=== PATIENT | female | born 1975 | race Hispanic/Latino ===

== ENCOUNTER 2016-10-19 16:21 | Emergency (ER) | payer OTHER ==
[2016-10-19 18:11] LABS: Basophils % (Auto) 0.7 % (0.0-1.8); Eosinophils % (Auto) 1.2 % (0.0-4.3); Hemoglobin 13.4 gm/dl (10.1-14.3); Mean Corpuscular HGB Conc 33 % (30-34); Mean Corpuscular Hemoglobin 27 pg (28-32); Mean Corpuscular Volume 84 fl (79-97); Platelet Count 235 K/mm3 (140-440); Red Blood Count 4.89 M/mm3 (3.65-5.03); Red Cell Distribution Width 14.2 % (13.2-15.2); White Blood Count 9.1 K/mm3 (4.5-11.0)
--- NOTE | 2016-10-19 18:11 | Emergency Department Report ---
ED Psych HPI - General Chief Complaint: Psych Stated Complaint: SUICIDAL THOUGHTS Time Seen by Provider: 10/19/16 17:21 Source: patient, family, EMS Mode of arrival: Ambulatory - History of Present Illness MD Complaint: suicidal ideation, feels depressed -: Gradual Associated Psychiatric Symptoms: depression History of same: Yes Quality: intermittent Improves With: none Worsens With: none Context: significant life stressor Associated Symptoms: denies: confusion, headache, shortness of breath, nausea, vomiting, syncope, insomnia If Self Harm: admits thoughts of, gunshot - Related Data Previous Rx's Medication Instructions Recorded Last Taken Type Albuterol Sulfate [Proventil HFA] 1 - 2 puff IH Q4H PRN #1 hfa.aer.ad 03/13/14 Unknown Rx Loratadine [Claritin] 10 mg PO DAILY #20 tablet 03/13/14 Unknown Rx ALBUTEROL NEB's [Proventil 0.083% 2.5 mg IH TID PRN #1 box 10/17/14 Unknown Rx NEBS] predniSONE [Deltasone] 40 mg PO BID #10 tablet 10/17/14 Unknown Rx traMADol [Ultram] 50 mg PO Q6HR PRN #20 tablet 10/17/14 Unknown Rx Allergies Allergy/AdvReac Type Severity Reaction Status Date / Time amoxicillin trihydrate Allergy Rash Verified 10/17/14 11:08 [From Augmentin] codeine Allergy Rash Verified 10/17/14 11:08 erythromycin base Allergy Rash Verified 10/17/14 11:08 potassium clavulanate Allergy Rash Verified 10/17/14 11:08 [From Augmentin] Sulfa (Sulfonamide Allergy Rash Verified 10/17/14 11:08 Antibiotics) ED Review of Systems ROS: Stated complaint: SUICIDAL THOUGHTS Other details as noted in HPI Comment: All other systems reviewed and negative ED Past Medical Hx - Past Medical History Previous Medical History?: Yes Hx CVA: No Hx Heart Attack/AMI: No Hx Congestive Heart Failure: No Hx Diabetes: No Hx Deep Vein Thrombosis: No Hx Pulmonary Embolism: No Hx GERD: No Hx Liver Disease: No Hx Renal Disease: No Hx of Cancer: No Hx Sickle Cell Disease: No Hx Arthritis: No Hx Headaches / Migraines: No Hx Seizures: No Hx Kidney Stones: No Hx Psychiatric Treatment: No Hx Asthma: Yes Hx COPD: No Hx Tuberculosis: No Hx Dementia: No Hx HIV: No - Surgical History Past Surgical History?: Yes Hx Coronary Stent: No Hx Open Heart Surgery: No Hx Pacemaker: Yes (heart murmmur) Hx Internal Defibrillator: No Hx Cholecystectomy: No Hx Appendectomy: Yes Hx Breast Surgery: No - Social History Smoking Status: Current Every Day Smoker Substance Use Type: Alcohol - Medications Home Medications: Home Medications Medication Instructions Recorded Confirmed Last Taken Type Albuterol Sulfate [Proventil HFA] 1 - 2 puff IH Q4H PRN #1 hfa.aer.ad 03/13/14 Unknown Rx Loratadine [Claritin] 10 mg PO DAILY #20 tablet 03/13/14 Unknown Rx ALBUTEROL NEB's [Proventil 0.083% 2.5 mg IH TID PRN #1 box 10/17/14 Unknown Rx NEBS] predniSONE [Deltasone] 40 mg PO BID #10 tablet 10/17/14 Unknown Rx traMADol [Ultram] 50 mg PO Q6HR PRN #20 tablet 10/17/14 Unknown Rx ED Physical Exam - General Limitations: No Limitations General appearance: alert, in no apparent distress - Head Head exam: Present: atraumatic, normocephalic - Eye Eye exam: Present: normal appearance - ENT ENT exam: Present: normal exam, mucous membranes moist - Neck Neck exam: Present: normal inspection - Respiratory Respiratory exam: Present: normal lung sounds bilaterally. Absent: respiratory distress - Cardiovascular Cardiovascular Exam: Present: regular rate, normal rhythm. Absent: systolic murmur, diastolic murmur, rubs, gallop - GI/Abdominal GI/Abdominal exam: Present: soft, normal bowel sounds. Absent: distended, tenderness, guarding - Extremities Exam Extremities exam: Present: normal inspection - Back Exam Back exam: Present: normal inspection - Neurological Exam Neurological exam: Present: alert, oriented X3 - Psychiatric Psychiatric exam: Present: depressed - Skin Skin exam: Present: warm, dry, intact, normal color. Absent: rash ED Course Vital Signs 10/19/16 10/19/16 16:26 20:28 Temperature 98.4 F 98.2 F Pulse Rate 104 H 99 H Respiratory 24 22 Rate Blood Pressure 173/129 Blood Pressure 143/82 [Left] O2 Sat by Pulse 98 96 Oximetry ED Medical Decision Making - Lab Data Result diagrams: 10/19/16 17:58 10/19/16 17:58 - Medical Decision Making patient brought by EMS after a discussion with her sister and she told her she was planning to kill herself with a gun, no prior suicidal ideations , consulted psych and agree with plan for transfering to psych facility, 1013 form in the chart Critical care attestation.: If time is entered above; I have spent that time in minutes in the direct care of this critically ill patient, excluding procedure time. ED Disposition Clinical Impression: Suicidal ideation Disposition: DC/TX PSY HOSP/PSY UNIT Is pt being admited?: No Does the pt Need Aspirin: No Condition: Good Referrals: PRIMARY CARE, [Primary Care Provider] - 3-5 Days Time of Disposition: 10:05
[2016-10-19] MEDS ORDERED: ATIVAN PO ONE (18:13)
[2016-10-19 18:30] LABS: Alanine Aminotransferase 19 units/L (7-56); Albumin 3.7 g/dL (3.9-5); Albumin/Globulin Ratio 1.6 %; Alkaline Phosphatase 64 units/L (35-129); Anion Gap 16 mmol/L; Blood Urea Nitrogen 10 mg/dL (7-17); Calcium 8.6 mg/dL (8.4-10.2); Carbon Dioxide 23 mmol/L (22-30); Chloride 102.7 mmol/L (98-107); Glucose 98 mg/dL (65-100); Potassium 4.1 mmol/L (3.6-5.0); Sodium 138 mmol/L (137-145)
[2016-10-19 18:50] LABS: Urine Drugs of Abuse Note Disclamer
[2016-10-19] MEDS ORDERED: PROVENTIL IH ONE (19:55)
[2016-10-20] MEDS ORDERED: MILK OF MAGNESIA PO PRN (13:31)
[2016-10-20] MEDS ORDERED: ALUM-MAG HYDROX-SIMETH 200-200-20MG/5ML PO PRN (13:31)
[2016-10-20] MEDS ORDERED: DUONEB 0.5 MG-3 MG/3 ML SOLN IH ONE ×2 (13:34→20:26)
[2016-10-20] MEDS: TYLENOL PO PRN (14:27)
--- NOTE | 2016-10-20 19:17 | Consultation ---
<SAIGE NEGRETE E - Last Filed: 10/20/16 23:21> History of Present Illness - Reason for Consult Consult date: 10/20/16 Reason for consult: psychiatric evaluation - Chief Complaint Chief complaint: "My took my little girl" 41 yearold white female seen in the ER for psychiatric evaluation. Her sister called EMS after she did not answer the phone despite repeated calls. The events prior to this were involving the patient and her . Her took their 12 year old and left. She reports they had an ongoing argument for the past 3 days. She has not had contact with him since he left. Her sister reported to EMS and the hospital that the patient told her she was going to shoot herself and the patient is on drugs. The patient denies both of these accusations. She denies psychotic symptoms. Her drug screen is positive for amphetamine and marijuana. She reports marijuana use every 6 months. She is restless and perseverative about going home. Staff report she was distraught when she arrived and could not stop crying. Medications and Allergies Allergies Allergy/AdvReac Type Severity Reaction Status Date / Time amoxicillin trihydrate Allergy Rash Verified 10/17/14 11:08 [From Augmentin] codeine Allergy Rash Verified 10/17/14 11:08 erythromycin base Allergy Rash Verified 10/17/14 11:08 potassium clavulanate Allergy Rash Verified 10/17/14 11:08 [From Augmentin] Sulfa (Sulfonamide Allergy Rash Verified 10/17/14 11:08 Antibiotics) Home Medications Medication Instructions Recorded Confirmed Last Taken Type Albuterol Sulfate [Proventil HFA] 1 - 2 puff IH Q4H PRN #1 hfa.aer.ad 03/13/14 10/20/16 Unknown Rx Loratadine [Claritin] 10 mg PO DAILY #20 tablet 03/13/14 10/20/16 Unknown Rx ALBUTEROL NEB's [Proventil 0.083% 2.5 mg IH TID PRN #1 box 10/17/14 10/20/16 Unknown Rx NEBS] predniSONE [Deltasone] 40 mg PO BID #10 tablet 10/17/14 10/20/16 Unknown Rx traMADol [Ultram] 50 mg PO Q6HR PRN #20 tablet 10/17/14 10/20/16 Unknown Rx Active Meds: Active Medications Acetaminophen (Tylenol) 650 mg PO Q4HR PRN PRN Reason: Pain MILD(1-3)/Fever >100.5/VILLALOBOS Last Admin: 10/20/16 14:27 Dose: 650 mg Al Hydrox/Mg Hydrox/Simethicone (Alum-Mag Hydrox-Simeth [id number]/5ml) 30 ml PO Q4HR PRN PRN Reason: Indigestion Magnesium Hydroxide (Milk Of Magnesia) 30 ml PO Q12HR PRN PRN Reason: Constipation Past psychiatric history - Past Medical History Past Medical History: other (asthma) - Social History Social history: lives with family Mental Status Exam - Vital signs Last Vital Signs Temp 98.2 F 10/19/16 20:28 Pulse 94 H 10/20/16 14:17 Resp 18 10/20/16 14:17 BP 143/82 10/19/16 20:28 Pulse Ox 96 10/20/16 13:00 - Exam Orientation: time, place, person Affect: anxious Mood: congruent with affect Thought content: other (no SI, no HI) Thought Process: Goal Oriented (perseverative about going home) Perceptions: none Speech: normal rate and pattern Concentration: focused Motor activity: restless Level of consciousness: alert Memory: Intact Sleep Symptoms: None Interaction: cooperative Results Result Diagrams: 10/19/16 17:58 10/19/16 17:58 All other labs normal. Assessment and Plan Assessment and plan: Impression: acute stress reaction Patient is not suicidal or homicidal. Substance abuse is likely but methamphetamine use is not confirmed. Recommendation: Obtain collateral from sister and . No indications for 1013 at the time of exam <JANE CABRERA - Last Filed: 10/22/16 21:09> Medications and Allergies Active Meds: Active Medications Acetaminophen (Tylenol) 650 mg PO Q4HR PRN PRN Reason: Pain MILD(1-3)/Fever >100.5/VILLALOBOS Last Admin: 10/20/16 14:27 Dose: 650 mg Al Hydrox/Mg Hydrox/Simethicone (Alum-Mag Hydrox-Simeth [phone]/5ml) 30 ml PO Q4HR PRN PRN Reason: Indigestion Albuterol (Proventil) 2.5 mg IH QID PRN PRN Reason: Shortness Of Breath Stop: 10/26/16 05:10 Last Admin: 10/21/16 05:37 Dose: 2.5 mg Magnesium Hydroxide (Milk Of Magnesia) 30 ml PO Q12HR PRN PRN Reason: Constipation Mental Status Exam - Vital signs Last Vital Signs Temp 98.1 F 10/22/16 08:31 Pulse 90 10/22/16 08:31 Resp 16 10/22/16 08:33 BP 122/82 10/22/16 08:31 Pulse Ox 94 10/22/16 08:33 Results Result Diagrams: 10/19/16 17:58 10/19/16 17:58 All other labs normal. Assessment and Plan Assessment and plan: Addendum for 10/22/16 -Patient was seen by me today and yesterday. Today patient continues to deny any SI/HI/AH/VH. Per staff she's been calm and cooperative. She's been taking her meds and describes no side effects. Patient isn't in any acute risk of harm to self or others. 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 -rescind 1013 and follow up with outpatient treatment
[2016-10-21] MEDS: PROVENTIL IH PRN (05:37)
[2016-10-21] MEDS ORDERED: ATIVAN ONE (17:36)
[2016-10-21] MEDS ORDERED: ATIVAN IM ONE (17:44)
[2016-10-22] MEDS: PROVENTIL IH PRN (00:05)
[2016-10-22] MEDS: TYLENOL PO PRN (20:58)
--- NOTE | 2016-10-23 08:15 | Physician Progress Note ---
REASON FOR FOLLOWUP: Reevaluate her mental status and also her response to therapy. SUBJECTIVE DATA: Includes \\"I'm doing fine, just ready to go home.\\" OBJECTIVE DATA: Includes the patient noted lying in bed, resting quietly. No visible distress noted. She was alert and oriented to person, place, time and situation. Affect appears to be euthymic. Mood was pleasant. Eye contact was good. Insight and judgment appears to be appropriate. Concentration and memory was good. She denies any suicidal and homicidal ideations. She reports that she made a mistake by threatening to harm herself. Denies any auditory or visual hallucinations. She reports eating well, sleeping well. She is not responding to internal stimuli. No psychosis noted. She has been calm and cooperative with staff here and reports that she is just ready to go home. At the current time, her assessment includes major depressive disorder and the plan is to possibly ____ based on Dr. Boss's decision probably if not today, probably tomorrow on 10/23/2016 with family. She has been calm and cooperative been compliant with staff, no behavior issues, no suicidal gestures or verbalization of suicidal thoughts or homicidal ideations as well. The plan is to continue with the current regimen as prescribed, provide outpatient resources upon discharge and continue to follow during hospitalization. JOB# [id number] CAROLINA/TAMIR
[2016-10-23 08:28] VITALS: BP 118/84
--- NOTE | 2016-10-23 08:35 | Progress Note ---
Subjective - Reason for Consult Consult date: 10/23/16 Reason for consult: Psychiatry Follow-up - Chief Complaint Chief complaint: "I was stupid" 41 year old white female seen in the ER for psychiatric evaluation. Today patient is calm and cooperative during assessment. She acknowledged that her decison making was erratic when she got into an argument with her . She stated, "I was stupid for that." She stated saying she was going to kill herself was her being "upset." She denies recreational drug use, but she was positive for amphetamines and marijuana. She stated, "I did those drugs once." Spoke with her sister and , they stated that the patient can have "mood swings" at times. She denies sleep disturbance, poor appetite, SI/HI's, or depression. 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 She stated that she usually work full-time. Mental Status Exam - Vital signs Last Vital Signs Temp 98 F 10/23/16 08:24 Pulse 85 10/23/16 08:24 Resp 18 10/23/16 08:24 BP 118/84 10/23/16 08:24 Pulse Ox 94 10/23/16 08:24 - Exam Narrative exam: MSE: Appearance: cooperative Behavior: good eye contact Speech: regular rate and tone Mood: "okay" Affect: congruent Thought Process: linear Thought Content: denies SI/HI's and AVH's Motor Activity: ambulatory Cognition: a/ox 3 Insight: linear Judgment: linear Assessment and Plan Impression: 41 year old white female seen in the ER for psychiatric evaluation. Today patient is calm and cooperative during assessment. She acknowledged that her decison making was erratic when she got into an argument with her . She stated, "I was stupid for that." She stated saying she was going to kill herself was her being "upset." Spoke with her Oskar Ledesma [phone] and sister Keli Borrego [phone]. They both stated that patient is safe to return home with her . She is no threat to self or anyone else. She denies SI/HI's and AVH's. Recommendation/Plan: Patient will follow-up with [facility] for outpatient psy services. Start Lexapro 5 mg PO daily for mood. Discussed possible suicidality and medication induced thad with patient reference antidepressants. Safety contract completed with patient.
[2016-10-23] MEDS: PROVENTIL IH PRN (09:52)
[2016-10-23] MEDS ORDERED: LEXAPRO PO SCH (10:00)
--- NOTE | 2016-10-23 10:13 | Event Note ---
Date: 10/23/16 The patient is interviewed, she is calm, pleasant, lucid and cooperative. She is alert and oriented 3. She has no medical complaints at this time. She has a GCS of 15, with an NIH score of 0. She is not homicidal or suicidal, she is not having hallucinations, and she does not have access to guns or firearms. Psychiatry notes are reviewed and appreciated. They have rescinded the patient' s 1013. She will be discharged at this time. She is instructed to follow-up with a local primary care doctor or mental health specialist to initiate Lexapro therapy. Return precautions are reviewed. Vital Signs 10/19/16 10/19/16 10/20/16 16:26 20:28 13:00 Temperature 98.4 F 98.2 F Pulse Rate 104 H 99 H Pulse Rate [ Bilateral] Respiratory 24 22 22 Rate Respiratory Rate [Bilateral ] Blood Pressure 173/129 Blood Pressure 143/82 [Left] O2 Sat by Pulse 98 96 96 Oximetry 10/20/16 10/20/16 10/20/16 14:05 14:17 20:39 Temperature 98.4 F Pulse Rate 94 H Pulse Rate [ 93 H 94 H Bilateral] Respiratory 16 Rate Respiratory 18 18 Rate [Bilateral ] Blood Pressure Blood Pressure 147/92 [Left] O2 Sat by Pulse 96 Oximetry 10/20/16 10/20/16 10/21/16 20:42 20:51 09:10 Temperature 97.9 F Pulse Rate 86 Pulse Rate [ 89 91 H Bilateral] Respiratory 18 Rate Respiratory 16 17 Rate [Bilateral ] Blood Pressure Blood Pressure 150/57 [Left] O2 Sat by Pulse 94 Oximetry 10/21/16 10/22/16 10/22/16 21:10 08:31 08:33 Temperature 98.4 F 98.1 F Pulse Rate 90 90 Pulse Rate [ Bilateral] Respiratory 18 16 16 Rate Respiratory Rate [Bilateral ] Blood Pressure Blood Pressure 118/89 122/82 [Left] O2 Sat by Pulse 97 94 94 Oximetry 10/22/16 10/23/16 22:00 08:24 Temperature 98.1 F 98 F Pulse Rate 98 H 85 Pulse Rate [ Bilateral] Respiratory 18 18 Rate Respiratory Rate [Bilateral ] Blood Pressure Blood Pressure 148/96 118/84 [Left] O2 Sat by Pulse 98 94 Oximetry Lab Results 05/18/17 05/18/17 05/18/17 Range/Units 17:58 17:58 17:58 WBC 9.1 (4.5-11.0) K/mm3 RBC 4.89 (3.65-5.03) M/mm3 Hgb 13.4 (10.1-14.3) gm/dl Hct 41.0 (30.3-42.9) % MCV 84 (79-97) fl MCH 27 L (28-32) pg MCHC 33 (30-34) % RDW 14.2 (13.2-15.2) % Plt Count 235 (140-440) K/mm3 Lymph % (Auto) 29.3 (13.4-35.0) % [place] % (Auto) 6.2 (0.0-7.3) % Eos % (Auto) 1.2 (0.0-4.3) % Baso % (Auto) 0.7 (0.0-1.8) % Lymph # 2.7 (1.2-5.4) K/mm3 [place] # 0.6 (0.0-0.8) K/mm3 Eos # 0.1 (0.0-0.4) K/mm3 Baso # 0.1 (0.0-0.1) K/mm3 Seg Neutrophils % 62.6 (40.0-70.0) % Seg Neutrophils # 5.7 (1.8-7.7) K/mm3 Sodium 138 (137-145) mmol/L Potassium 4.1 (3.6-5.0) mmol/L Chloride 102.7 (98-107) mmol/L Carbon Dioxide 23 (22-30) mmol/L Anion Gap 16 mmol/L BUN 10 (7-17) mg/dL Creatinine 0.5 L (0.7-1.2) mg/dL Estimated GFR > 60 ml/min BUN/Creatinine Ratio 20.00 % Glucose 98 (65-100) mg/dL Calcium 8.6 (8.4-10.2) mg/dL Total Bilirubin 0.20 (0.1-1.2) mg/dL AST 17 (5-40) units/L ALT 19 (7-56) units/L Alkaline Phosphatase 64 (35-129) units/L Total Protein 6.0 L (6.3-8.2) g/dL Albumin 3.7 L (3.9-5) g/dL Albumin/Globulin Ratio 1.6 % Salicylates < 0.3 L (2.8-20.0) mg/dL Urine Opiates Screen Urine Methadone Screen Acetaminophen (10.0-30.0) ug/mL Ur Barbiturates Screen Ur Phencyclidine Scrn Ur Amphetamines Screen U Benzodiazepines Scrn Urine Cocaine Screen U Marijuana (THC) Screen Drugs of Abuse Note Plasma/Serum Alcohol (0-0.07) gm% 10/19/16 10/19/16 10/19/16 Range/Units 17:58 17:58 18:35 WBC (4.5-11.0) K/mm3 RBC (3.65-5.03) M/mm3 Hgb (10.1-14.3) gm/dl Hct (30.3-42.9) % MCV (79-97) fl MCH (28-32) pg MCHC (30-34) % RDW (13.2-15.2) % Plt Count (140-440) K/mm3 Lymph % (Auto) (13.4-35.0) % [place] % (Auto) (0.0-7.3) % Eos % (Auto) (0.0-4.3) % Baso % (Auto) (0.0-1.8) % Lymph # (1.2-5.4) K/mm3 [place] # (0.0-0.8) K/mm3 Eos # (0.0-0.4) K/mm3 Baso # (0.0-0.1) K/mm3 Seg Neutrophils % (40.0-70.0) % Seg Neutrophils # (1.8-7.7) K/mm3 Sodium (137-145) mmol/L Potassium (3.6-5.0) mmol/L Chloride (98-107) mmol/L Carbon Dioxide (22-30) mmol/L Anion Gap mmol/L BUN (7-17) mg/dL Creatinine (0.7-1.2) mg/dL Estimated GFR ml/min BUN/Creatinine Ratio % Glucose (65-100) mg/dL Calcium (8.4-10.2) mg/dL Total Bilirubin (0.1-1.2) mg/dL AST (5-40) units/L ALT (7-56) units/L Alkaline Phosphatase (35-129) units/L Total Protein (6.3-8.2) g/dL Albumin (3.9-5) g/dL Albumin/Globulin Ratio % Salicylates (2.8-20.0) mg/dL Urine Opiates Screen Presumptive negative Urine Methadone Screen Presumptive negative Acetaminophen < 15.0 (10.0-30.0) ug/mL Ur Barbiturates Screen Presumptive negative Ur Phencyclidine Scrn Presumptive negative Ur Amphetamines Screen Presumptive positive U Benzodiazepines Scrn Presumptive negative Urine Cocaine Screen Presumptive negative U Marijuana (THC) Screen Presumptive positive Drugs of Abuse Note Disclamer Plasma/Serum Alcohol < 0.01 (0-0.07) gm%
== END 2016-10-23 10:22 | disposition home or self-care (01) ==
LOC: EEVIPCON 16:21 → ED 16:21
DX: R45.851 Suicidal ideations (principal); J45.909 Unspecified asthma, uncomplicated; F17.200 Nicotine dependence, unspecified, uncomplicated; Z95.0 Presence of cardiac pacemaker; Z90.49 Acquired absence of other specified parts of digestive tract; Z88.2 Allergy status to sulfonamides; Z88.6 Allergy status to analgesic agent; Z88.1 Allergy status to other antibiotic agents; Z88.8 Allergy status to other drugs, medicaments and biological substances
CPT/HCPCS: 36415; 80053; 80307; 85025; 94640; 96372; 99285; G0480; J2060; 80320

== ENCOUNTER 2018-11-18 08:39 | Emergency (ER) | payer SELFPAY ==
[2018-11-18] MEDS ORDERED: ATROVENT IH ONE ×2 (08:57→09:34)
[2018-11-18] MEDS ORDERED: PROVENTIL IH ONE ×3 (08:57→11:20)
--- NOTE | 2018-11-18 09:02 | Emergency Department Report ---
HPI - General Time Seen by Provider: 11/18/18 09:00 - HPI HPI: 46-year-old female presents to the emergency department by EMS from home with a complaint of shortness of breath, wheezing and coughing that has been going on for the past 1-2 days. She has a known history of asthma, anxiety, and is a one pack per day tobacco smoker. She was using her albuterol inhalers and nebulizer at home without any relief. The patient does have some recent travel but denies any sick contacts at home. She does not have a primary care physician. The patient received some albuterol, Solu-Medrol and magnesium in route with EMS. She denies any fever, lower external swelling, chest pain, nausea, vomiting or diaphoresis. ED Past Medical Hx - Past Medical History Hx CVA: No Hx Heart Attack/AMI: No Hx Congestive Heart Failure: No Hx Diabetes: No Hx Deep Vein Thrombosis: No Hx Pulmonary Embolism: No Hx GERD: No Hx Liver Disease: No Hx Renal Disease: No Hx Sickle Cell Disease: No Hx Arthritis: No Hx Headaches / Migraines: No Hx Seizures: No Hx Kidney Stones: No Hx Psychiatric Treatment: No Hx Asthma: Yes Hx COPD: No Hx Tuberculosis: No Hx Dementia: No Hx HIV: No Additional medical history: heart murmur - Surgical History Hx Coronary Stent: No Hx Open Heart Surgery: No Hx Pacemaker: Yes (heart murmmur) Hx Internal Defibrillator: No Hx Cholecystectomy: No Hx Appendectomy: Yes Hx Breast Surgery: No - Social History Smoking Status: Current Every Day Smoker Substance Use Type: None - Medications Home Medications: Home Medications Medication Instructions Recorded Confirmed Last Taken Type Albuterol Sulfate [Proventil HFA] 1 - 2 puff IH Q4H PRN #1 hfa.aer.ad 03/13/14 10/20/16 Unknown Rx Loratadine [Claritin] 10 mg PO DAILY #20 tablet 03/13/14 10/20/16 Unknown Rx traMADol [Ultram] 50 mg PO Q6HR PRN #20 tablet 10/17/14 10/20/16 Unknown Rx ALBUTEROL Inhaler (OR & NICU) 2 puff IH QID PRN #1 inhalation 11/18/18 Unknown Rx [ProAir HFA Inhaler] ALBUTEROL NEB's [Proventil 0.083% 2.5 mg IH TID PRN #1 box 11/18/18 Unknown Rx NEBS] predniSONE [Deltasone] 20 mg PO BID #10 tablet 11/18/18 Unknown Rx ED Review of Systems ROS: Stated complaint: CRISTIAN Other details as noted in HPI Comment: All other systems reviewed and negative Constitutional: denies: chills, fever Eyes: denies: eye pain, vision change ENT: denies: ear pain, throat pain Respiratory: cough, shortness of breath, wheezing Cardiovascular: denies: chest pain, edema Gastrointestinal: denies: abdominal pain, vomiting Genitourinary: denies: dysuria, discharge Musculoskeletal: denies: back pain, arthralgia Skin: denies: rash, lesions Neurological: denies: headache, weakness Physical Exam - Physical Exam Physical Exam: GENERAL: The patient is well-developed well-nourished. HENT: Normocephalic. Atraumatic. Patient has moist mucous membranes. EYES: Extraocular motions are intact. NECK: Supple. Trachea is midline. CHEST/LUNGS: Moderate wheezing without chest. There is some tachypnea and accessory muscle use. There is conversational dyspnea. There is respiratory distress noted. HEART/CARDIOVASCULAR: Regular. There is no tachycardia. There is no murmur. ABDOMEN: Abdomen is soft, nontender. Patient has normal bowel sounds. Obese habitus. SKIN: Skin is warm and dry. NEURO: The patient is awake, alert, and oriented. The patient is cooperative. The patient has no focal neurologic deficits. The patient has normal speech. MUSCULOSKELETAL: There is no tenderness or deformity. There is no limitation range of motion. There is no evidence of acute injury. ED Medical Decision Making - Lab Data Result diagrams: 11/18/18 08:59 11/18/18 08:59 - EKG Data -: EKG Interpreted by Me EKG shows normal: sinus rhythm, axis, intervals, QRS complexes, ST-T waves Rate: normal - EKG Data When compared to previous EKG there are: previous EKG unavailable Interpretation: normal EKG - Radiology Data Radiology results: image reviewed interpreted by me: Chest x-ray does not show any acute process. There are no pleural effusions, obvious pneumonia and there is no pneumothorax. - Medical Decision Making This patient presents to the emergency department with a few days of progressively worsening shortness of breath, wheezing, coughing with a history of asthma. Upon arrival, the patient does appear in some respiratory distress secondary to bronchospasm with some tachypnea and accessory muscle use. The patient greatly improved when she was placed on the BiPAP which was fed and with some albuterol and Atrovent. Chest x-ray does not show any pleural effusions, pneumonia, focal consolidation, pneumothorax, or any other acute process. Nick cross's labs were unremarkable including a negative troponin and negative d- dimer. She was already given some magnesium and steroids in route with EMS. She was reevaluated multiple times over multiple hours and is showing improvement. She was taken off BiPAP and given another breathing treatment. After this, the patient was reevaluated and there was only some expiratory wheezing. The patient was able to ambulate around the emergency department without much return of her bronchospasm, increased work of breathing or return of any respiratory distress. Patient is feeling improved and asking for discharge home. She'll be given a five-day course of steroids and a refill of her albuterol inhaler and nebulizer treatments. She was given some referrals for primary care. She will return to the ER with any worsening of her symptoms or any acute distress. - Differential Diagnosis asthma, COPD, PE, pneumonia Critical Care Time: No Critical care attestation.: If time is entered above; I have spent that time in minutes in the direct care of this critically ill patient, excluding procedure time. ED Disposition Clinical Impression: Asthma exacerbation Qualifiers: Asthma severity: unspecified severity Asthma persistence: unspecified Qualified Code(s): J45.901 - Unspecified asthma with (acute) exacerbation Hypertension Qualifiers: Hypertension type: essential hypertension Qualified Code(s): I10 - Essential (primary) hypertension Disposition: DC-01 TO HOME OR SELFCARE Is pt being admited?: No Condition: Stable Instructions: Asthma (ED), How to Stop Smoking (ED), Hypertension (ED) Additional Instructions: Please follow up with her primary care physician in the next few days. Please quit smoking. Return to the emergency Department with any worsening of your symptoms or any acute distress. Prescriptions: predniSONE [Deltasone] 20 mg PO BID #10 tablet ALBUTEROL Inhaler (OR & NICU) [ProAir HFA Inhaler] 2 puff IH QID PRN #1 inhalation PRN Reason: Shortness Of Breath ALBUTEROL NEB's [Proventil 0.083% NEBS] 2.5 mg IH TID PRN #1 box PRN Reason: Wheezing Referrals: [facility] [Outside] - 3-5 Days [facility] [Outside] - 3-5 Days [facility] [Outside] - 3-5 Days Time of Disposition: 13:55
[2018-11-18 09:19] LABS: Basophils # (Auto) 0.1 K/mm3 (0.0-0.1); Basophils % (Auto) 0.5 % (0.0-1.8); Eosinophils % (Auto) 0.1 % (0.0-4.3); Hematocrit 36.6 % (30.3-42.9); Hemoglobin 11.7 gm/dl (10.1-14.3); Lymphocytes # (Auto) 2.1 K/mm3 (1.2-5.4); Lymphocytes % (Auto) 14.3 % (13.4-35.0); Mean Corpuscular HGB Conc 32 % (30-34); Mean Corpuscular Volume 83 fl (79-97); Monocytes # (Auto) 0.6 K/mm3 (0.0-0.8); Monocytes % (Auto) 3.9 % (0.0-7.3); Platelet Count 284 K/mm3 (140-440); Red Cell Distribution Width 15.8 % (13.2-15.2)
[2018-11-18 09:22] LABS: BUN/Creatinine Ratio 22; Blood Urea Nitrogen 13 mg/dL (7-17); Calcium 8.2 mg/dL (8.4-10.2); Hemolysis Index 6
--- NOTE | 2018-11-18 09:52 | XRay Report ---
AP CHEST: HISTORY: chest pain AP view of the chest demonstrates a normal mediastinal and cardiac contour with clear lungs and normal bony and soft tissue structures. IMPRESSION: Unremarkable AP chest.
[2018-11-18 14:13] VITALS: BP 138/89
== END 2018-11-18 14:19 | disposition home or self-care (01) ==
LOC: ED 08:39
DX: J45.901 Unspecified asthma with (acute) exacerbation (principal); I10 Essential (primary) hypertension; F17.200 Nicotine dependence, unspecified, uncomplicated; Z79.899 Other long term (current) drug therapy; Z88.1 Allergy status to other antibiotic agents; Z88.2 Allergy status to sulfonamides; Z88.6 Allergy status to analgesic agent; Z90.49 Acquired absence of other specified parts of digestive tract
CPT/HCPCS: 36415; 71045; 80048; 84484; 85025; 85379; 93005; 93010; 94640

== ENCOUNTER 2018-11-19 01:30 | Observation (INO) | payer OTHER ==
[2018-11-19] MEDS ORDERED: MAGNESIUM SULFATE 2GM/50ML 2 GM/50 ML BAG IV ONE (01:36)
[2018-11-19] MEDS ORDERED: SOLU-Medrol IV ONE (01:36)
[2018-11-19] MEDS ORDERED: DUONEB *Not for PRN Use IH ONE ×2 (01:40→05:52)
[2018-11-19] MEDS ORDERED: PROVENTIL IH ONE (01:42)
[2018-11-19] MEDS ORDERED: ATROVENT IH ONE (01:42)
--- NOTE | 2018-11-19 01:59 | XRay Report ---
PROCEDURE: XR CHEST 1V AP TECHNIQUE: Chest radiograph single view. HISTORY: sob COMPARISONS: None . FINDINGS: Heart: Normal. Mediastinum/Vessels: Normal. Lungs/Pleural space: Normal. Bony thorax: No acute osseous abnormality. Life support devices: None. IMPRESSION: No acute cardiopulmonary abnormality. This document is electronically signed by Dane Mishra MD., November 19 2018 01:57:47 AM ET
[2018-11-19 02:12] LABS: Basophils % (Auto) 0.2 % (0.0-1.8); Hematocrit 36.6 % (30.3-42.9); Hemoglobin 11.8 gm/dl (10.1-14.3); Lymphocytes # (Auto) 1.8 K/mm3 (1.2-5.4); Lymphocytes % (Auto) 10.9 % (13.4-35.0); Mean Corpuscular HGB Conc 32 % (30-34); Mean Corpuscular Volume 83 fl (79-97); Monocytes % (Auto) 6.1 % (0.0-7.3); Platelet Count 276 K/mm3 (140-440); Red Blood Count 4.43 M/mm3 (3.65-5.03)
--- NOTE | 2018-11-19 02:40 | Emergency Department Report ---
ED Shortness of Breath HPI - General Chief Complaint: Dyspnea/Respdistress Stated Complaint: CRISTIAN SOB Time Seen by Provider: 11/19/18 01:36 Source: patient Mode of arrival: Ambulatory Limitations: No Limitations - History of Present Illness Initial Comments: 43-year-old female history of asthma presents to ED for the second time today in respiratory distress. Patient was discharged from the ER approximately 12 hours ago following asthma exacerbation. Patient was placed on BiPAP at that time, and symptoms improved, and patient was discharged home. Chest x-ray at that time was normal. Patient returns tonight, in respiratory distress again, with d iffuse wheezing. The patient reports onset of symptoms approximately 2 days ago. PCP: celia WONG Complaint: "asthma attack" -: During the night Severity: severe Consistency: constant Improves With: nothing Worsens With: nothing Known History Of: asthma Associated Symptoms: denies other symptoms - Related Data Home Oxygen Therapy: No Previous Rx's Medication Instructions Recorded Last Taken Type Albuterol Sulfate [Proventil HFA] 1 - 2 puff IH Q4H PRN #1 hfa.aer.ad 03/13/14 Unknown Rx ALBUTEROL Inhaler (OR & NICU) 2 puff IH QID PRN #1 inhalation 11/18/18 Unknown Rx [ProAir HFA Inhaler] ALBUTEROL NEB's [Proventil 0.083% 2.5 mg IH TID PRN #1 box 11/18/18 Unknown Rx NEBS] predniSONE [Deltasone] 20 mg PO BID #10 tablet 11/18/18 Unknown Rx Allergies Allergy/AdvReac Type Severity Reaction Status Date / Time amoxicillin trihydrate Allergy Rash Verified 10/17/14 11:08 [From Augmentin] codeine Allergy Rash Verified 10/17/14 11:08 erythromycin base Allergy Rash Verified 10/17/14 11:08 potassium clavulanate Allergy Rash Verified 10/17/14 11:08 [From Augmentin] Sulfa (Sulfonamide Allergy Rash Verified 10/17/14 11:08 Antibiotics) ED Review of Systems ROS: Stated complaint: CRISTIAN SOB Other details as noted in HPI Comment: All other systems reviewed and negative Constitutional: denies: fever Respiratory: shortness of breath, wheezing Cardiovascular: denies: chest pain ED Past Medical Hx - Past Medical History Previous Medical History?: Yes Hx CVA: No Hx Heart Attack/AMI: No Hx Congestive Heart Failure: No Hx Diabetes: No Hx Deep Vein Thrombosis: No Hx Pulmonary Embolism: No Hx GERD: No Hx Liver Disease: No Hx Renal Disease: No Hx Sickle Cell Disease: No Hx Arthritis: No Hx Headaches / Migraines: No Hx Seizures: No Hx Kidney Stones: No Hx Psychiatric Treatment: No Hx Asthma: Yes Hx COPD: No Hx Tuberculosis: No Hx Dementia: No Hx HIV: No Additional medical history: heart murmur - Surgical History Past Surgical History?: Yes Hx Coronary Stent: No Hx Open Heart Surgery: No Hx Pacemaker: Yes (heart murmmur) Hx Internal Defibrillator: No Hx Cholecystectomy: No Hx Appendectomy: Yes Hx Breast Surgery: No - Social History Smoking Status: Never Smoker - Medications Home Medications: Home Medications Medication Instructions Recorded Confirmed Last Taken Type Albuterol Sulfate [Proventil HFA] 1 - 2 puff IH Q4H PRN #1 hfa.aer.ad 03/13/14 11/19/18 Unknown Rx ALBUTEROL Inhaler (OR & NICU) 2 puff IH QID PRN #1 inhalation 11/18/18 11/19/18 Unknown Rx [ProAir HFA Inhaler] ALBUTEROL NEB's [Proventil 0.083% 2.5 mg IH TID PRN #1 box 11/18/18 11/19/18 Unknown Rx NEBS] predniSONE [Deltasone] 20 mg PO BID #10 tablet 11/18/18 11/19/18 Unknown Rx ED Physical Exam - General Limitations: No Limitations General appearance: alert - Head Head exam: Present: atraumatic, normocephalic - Eye Eye exam: Present: normal appearance - ENT ENT exam: Present: mucous membranes moist - Respiratory Respiratory exam: Present: respiratory distress, wheezes, other (tachypneic) - Cardiovascular Cardiovascular Exam: Present: normal rhythm, tachycardia - GI/Abdominal GI/Abdominal exam: Present: soft. Absent: distended, tenderness - Extremities Exam Extremities exam: Present: normal inspection. Absent: pedal edema, calf tenderness - Neurological Exam Neurological exam: Present: alert, oriented X3 - Psychiatric Psychiatric exam: Present: normal affect, normal mood - Skin Skin exam: Present: warm, dry, intact, normal color ED Course Vital Signs 11/19/18 11/19/18 11/19/18 01:31 01:55 02:00 Temperature 97.9 F Pulse Rate 137 H 100 H Pulse Rate [ 100 H 105 H Anterior Bilateral Throughout] Respiratory 36 H 28 H Rate Respiratory 32 H 36 H Rate [Anterior Bilateral Throughout] Blood Pressure 205/112 Blood Pressure [Left] O2 Sat by Pulse 91 96 Oximetry 11/19/18 11/19/18 11/19/18 03:00 03:16 03:30 Temperature Pulse Rate 102 H 90 Pulse Rate [ 96 H Anterior Bilateral Throughout] Respiratory 28 H 24 Rate Respiratory 24 Rate [Anterior Bilateral Throughout] Blood Pressure 157/85 Blood Pressure 151/93 [Left] O2 Sat by Pulse 98 97 Oximetry 11/19/18 03:42 Temperature Pulse Rate Pulse Rate [ Anterior Bilateral Throughout] Respiratory 28 H Rate Respiratory Rate [Anterior Bilateral Throughout] Blood Pressure Blood Pressure [Left] O2 Sat by Pulse 92 Oximetry ED Medical Decision Making - Lab Data Result diagrams: 11/19/18 01:52 11/19/18 02:56 - Radiology Data Radiology results: report reviewed, image reviewed - Medical Decision Making 43 yo F with acute asthma exacerbation requiring BiPAP. CXR remains normal compared to yesterday. WBCs now elevated to 16, normal yesterday. Possibly due to steroid adminstration due to ED visit. Pt afebrile. Feeling much better w/ BiPAP. Nebs, solumedrol, mag sulfate given. Will admit to hospitalist, Dr Bruno, for further management. - Differential Diagnosis asthma, pulm edema, pneumonia Critical Care Time: Yes Critical care time in (mins) excluding proc time.: 35 Critical care attestation.: If time is entered above; I have spent that time in minutes in the direct care of this critically ill patient, excluding procedure time. Critical Care Time: 35 minutes ED Disposition Clinical Impression: Hypoxia, Asthma with acute exacerbation Disposition: OP ADMIT IP TO THIS HOSP Is pt being admited?: Yes Condition: Stable Time of Disposition: 02:40
[2018-11-19 02:46] LABS: Blood Urea Nitrogen TNR mg/dL (7-17)
[2018-11-19 02:47] LABS: BUN/Creatinine Ratio TNR; Calcium TNR mg/dL (8.4-10.2); Hemolysis Index TNR
[2018-11-19] MEDS ORDERED: ZOFRAN IV PRN (03:24)
[2018-11-19] MEDS ORDERED: SODIUM CHLORIDE FLUSH SYRINGE 10 ML IV PRN (03:24)
[2018-11-19] MEDS ORDERED: PROVENTIL IH PRN (03:24)
[2018-11-19] MEDS ORDERED: TYLENOL PO PRN (03:24)
[2018-11-19] MEDS ORDERED: APRESOLINE IV PRN (03:28)
[2018-11-19 03:29] LABS: BUN/Creatinine Ratio 23; Blood Urea Nitrogen 14 mg/dL (7-17); Calcium 8.8 mg/dL (8.4-10.2); Hemolysis Index 2
[2018-11-19] MEDS ORDERED: MAGNESIUM SULFATE 2GM/50ML 0 GM/0 ML BAG IV ONE (03:35)
[2018-11-19] MEDS ORDERED: SOLU-Medrol ONE (03:35)
--- NOTE | 2018-11-19 04:13 | History and Physical Report ---
<DIMITRI MCKINNEY - Last Filed: 11/19/18 04:18> History of Present Illness Date of examination: 11/19/18 Date of admission: 11/19/2018 Chief complaint: Reason and respiratory distress History of present illness: 43-year-old female with history of COPD/asthma, anxiety and tobacco abuse who presents to [facility] ED with complaints of nonproductive cough, wheezing and shortness of breath for the past 2 days. Of note patient was seen in ED on 11/18/18 with similar complaints at which time she was treated with nebulizer treatment, steroids and BiPAP and was responsive. She was discharged and advised to follow-up with PCP. She returned to ED approximately 12 hours post discharge with complaints of worsening symptoms. She has tried albuterol inhalers and nebulizer at home without any relief. Admits: wheezing, SOB, dry cough, mild headache, chest tightness Denies: Sputum production, fever, n/v/d, chest pain, hemoptysis, or recent sick contacts Past History Past Medical History: COPD, other (asthma, anxiety) Past Surgical History: appendectomy, Other (pacemaker) Social history: , smoking (everyday smoker recently quit approximately 3- 4 weeks ago) Family history: no significant family history Medications and Allergies Allergies Allergy/AdvReac Type Severity Reaction Status Date / Time amoxicillin trihydrate Allergy Rash Verified 10/17/14 11:08 [From Augmentin] codeine Allergy Rash Verified 10/17/14 11:08 erythromycin base Allergy Rash Verified 10/17/14 11:08 potassium clavulanate Allergy Rash Verified 10/17/14 11:08 [From Augmentin] Sulfa (Sulfonamide Allergy Rash Verified 10/17/14 11:08 Antibiotics) Home Medications Medication Instructions Recorded Confirmed Last Taken Type Albuterol Sulfate [Proventil HFA] 1 - 2 puff IH Q4H PRN #1 hfa.aer.ad 03/13/14 11/19/18 Unknown Rx ALBUTEROL Inhaler (OR & NICU) 2 puff IH QID PRN #1 inhalation 11/18/18 11/19/18 Unknown Rx [ProAir HFA Inhaler] ALBUTEROL NEB's [Proventil 0.083% 2.5 mg IH TID PRN #1 box 11/18/18 11/19/18 Unknown Rx NEBS] predniSONE [Deltasone] 20 mg PO BID #10 tablet 11/18/18 11/19/18 Unknown Rx Active Meds: Active Medications Acetaminophen (Tylenol) 650 mg PO Q4H PRN PRN Reason: Pain MILD(1-3)/Fever >100.5/VILLALOBOS Albuterol (Proventil) 2.5 mg IH Q3HRT PRN PRN Reason: Shortness Of Breath Albuterol/Ipratropium (Duoneb *Not For Prn Use*) 1 ampul IH Q6HRT ROMA Budesonide (Pulmicort) 0.5 mg IH Q12HRT ROMA Docusate Sodium (Colace) 100 mg PO BID ROMA Guaifenesin (Mucinex Er) 600 mg PO BID ROMA Heparin Sodium (Porcine) (Heparin) 5,000 unit SUB-Q Q12HR ROMA Hydralazine HCl (Apresoline) 10 mg IV Q4HR PRN PRN Reason: Blood Pressure Levofloxacin/Dextrose (Levaquin 500mg/100ml) 500 mg in 100 mls @ 100 mls/hr IV Q24HR ROMA; Protocol Loratadine (Claritin) 10 mg PO DAILY [facility] Methylprednisolone Sodium Succinate (Solu-Medrol) 80 mg IV Q8HR [facility] Nicotine (Habitrol) 14 mg TD QDAY ROMA Ondansetron HCl (Zofran) 4 mg IV Q8H PRN PRN Reason: Nausea And Vomiting Sodium Chloride (Sodium Chloride Flush Syringe 10 Ml) 10 ml IV BID ROMA Sodium Chloride (Sodium Chloride Flush Syringe 10 Ml) 10 ml IV PRN PRN PRN Reason: LINE FLUSH Review of Systems All systems: negative (reviewed and no additional remarkable complaints except as noted below) Respiratory: cough, shortness of breath, dyspnea on exertion, wheezing Exam - Physical Exam Narrative exam: Physical exam General appearance: Present: Mild distress, alert and oriented 3, adult female - EENT Eyes: Present: PERRL, EOM intact ENT: hearing intact, normal dentition - Neck Neck: Present: supple, normal ROM - Respiratory Respiratory effort: Labored Respiratory: Scattered wheezing throughout with poor air - Cardiovascular Heart rate: 92(bpm) Rhythm: Sinus rhythm Heart Sounds: Present: S1 & S2. Absent: rub, click - Extremities Extremities: no ischemia, pulses intact, - Peripheral Assessment Peripheral Pulses: within normal limits - Abdominal General gastrointestinal: soft, non-tender, normal bowel sounds - Integumentary Integumentary: Present: warm, dry - Musculoskeletal Musculoskeletal: Able to move all extremities -Neurological Neurological: CNII-XII intact - Psychiatric Psychiatric: cooperative - Constitutional Vitals: Temp Pulse Resp BP Pulse Ox 97.9 F 90 28 H 157/85 92 11/19/18 01:31 11/19/18 03:30 11/19/18 03:42 11/19/18 03:30 11/19/18 03:42 Results - Labs CBC & Chem 7: 11/19/18 01:52 11/19/18 02:56 Labs: Laboratory Last Values WBC 16.0 K/mm3 (4.5-11.0) H 11/19/18 01:52 RBC 4.43 M/mm3 (3.65-5.03) 11/19/18 01:52 Hgb 11.8 gm/dl (10.1-14.3) 11/19/18 01:52 Hct 36.6 % (30.3-42.9) 11/19/18 01:52 MCV 83 fl (79-97) 11/19/18 01:52 MCH 27 pg (28-32) L 11/19/18 01:52 MCHC 32 % (30-34) 11/19/18 01:52 RDW 16.0 % (13.2-15.2) H 11/19/18 01:52 Plt Count 276 K/mm3 (140-440) 11/19/18 01:52 Lymph % (Auto) 10.9 % (13.4-35.0) L 11/19/18 01:52 Butler % (Auto) 6.1 % (0.0-7.3) 11/19/18 01:52 Eos % (Auto) 0.0 % (0.0-4.3) 11/19/18 01:52 Baso % (Auto) 0.2 % (0.0-1.8) 11/19/18 01:52 Lymph # 1.8 K/mm3 (1.2-5.4) 11/19/18 01:52 Butler # 1.0 K/mm3 (0.0-0.8) H 11/19/18 01:52 Eos # 0.0 K/mm3 (0.0-0.4) 11/19/18 01:52 Baso # 0.0 K/mm3 (0.0-0.1) 11/19/18 01:52 Seg Neutrophils % 82.8 % (40.0-70.0) H 11/19/18 01:52 Seg Neutrophils # 13.3 K/mm3 (1.8-7.7) H 11/19/18 01:52 Sodium 139 mmol/L (137-145) 11/19/18 02:56 Potassium 4.4 mmol/L (3.6-5.0) 11/19/18 02:56 Chloride 103.1 mmol/L (98-107) 11/19/18 02:56 Carbon Dioxide 24 mmol/L (22-30) 11/19/18 02:56 16 mmol/L 11/19/18 02:56 BUN 14 mg/dL (7-17) 11/19/18 02:56 0.6 mg/dL (0.7-1.2) L 11/19/18 02:56 Estimated GFR > 60 ml/min 11/19/18 02:56 23 % 11/19/18 02:56 Glucose 195 mg/dL (65-100) H 11/19/18 02:56 Calcium 8.8 mg/dL (8.4-10.2) 11/19/18 02:56 - Imaging and Cardiology EKG: image reviewed (sinus rhythm 92 bpm) Chest x-ray: report reviewed ( No acute cardiopulmonary abnormality.), image reviewed Assessment and Plan Assessment and plan: 43-year-old female with history of COPD/asthma, anxiety and tobacco abuse who presents to [facility] ED with complaints of nonproductive cough, wheezing and shortness of breath for the past 2 days. She was previously seen in ED on 11/18/18 with similar complaints at which time she was treated with nebulizer treatment, steroids and BiPAP and was responsive. On auscultation scattered wheezes and throughout with poor air movement noted. CXR unremarkable. Elevated WBC at 16.0. Initial ABG 7.38/35.2/69/21.7. She was given nebulizer treatment, magnesium sulfate 2g, systemic steroids and placed on BiPAP. Will admit to medical floor. Acute exacerbation of COPD Acute exacerbation of asthma Acute hypoxic respiratory failure Hypertensive urgency Leukocytosis History of seasonal allergies Tobacco abuse Plan: Continue supportive care Currently on BiPAP; Continue supplemental oxygen and wean as tolerated Start scheduled duo nebs and Pulmicort, albuterol when necessary Start Solu-Medrol 80 mg every 8 hours Levaquin 500 mg every 24 hours Mucinex Continue Claritin 10 mg daily Monitor BP Found to be in hypertensive urgency with BP of 205/112; IV hydralazine when necessary Will hold off on scheduled antihypertensive medication at this time; elevation in BP most likely due to acute respiratory failure Monitor CBC Counseled for smoking cessation, continue nicotine patch DVT PPX on heparin This patient is seen in conjunction with Dr. Herlinda Bruno. Advance Directives: No VTE prophylaxis?: Chemical Plan of care discussed with patient/family: Yes <KENNEDY BRUNO - Last Filed: 11/19/18 06:05> History of Present Illness Date of admission: 11/19/18 03:24 Medications and Allergies Active Meds: Active Medications Acetaminophen (Tylenol) 650 mg PO Q4H PRN PRN Reason: Pain MILD(1-3)/Fever >100.5/VILLALOBOS Albuterol (Proventil) 2.5 mg IH Q3HRT PRN PRN Reason: Shortness Of Breath Albuterol/Ipratropium (Duoneb *Not For Prn Use*) 1 ampul IH Q6HRT ROMA Budesonide (Pulmicort) 0.5 mg IH Q12HRT ROMA Docusate Sodium (Colace) 100 mg PO BID ROMA Guaifenesin (Mucinex Er) 600 mg PO BID ROMA Heparin Sodium (Porcine) (Heparin) 5,000 unit SUB-Q Q12HR ROMA Hydralazine HCl (Apresoline) 10 mg IV Q4H PRN PRN Reason: Blood Pressure Levofloxacin/Dextrose (Levaquin 500mg/100ml) 500 mg in 100 mls @ 100 mls/hr IV Q24HR ROMA; Protocol Loratadine (Claritin) 10 mg PO DAILY [facility]A Methylprednisolone Sodium Succinate (Solu-Medrol) 80 mg IV Q8HR ROMA Nicotine (Habitrol) 14 mg TD QDAY ROMA Ondansetron HCl (Zofran) 4 mg IV Q8H PRN PRN Reason: Nausea And Vomiting Sodium Chloride (Sodium Chloride Flush Syringe 10 Ml) 10 ml IV BID ROMA Sodium Chloride (Sodium Chloride Flush Syringe 10 Ml) 10 ml IV PRN PRN PRN Reason: LINE FLUSH Exam - Constitutional Vitals: Temp Pulse Resp BP Pulse Ox 97.9 F 90 28 H 157/85 92 11/19/18 01:31 11/19/18 03:30 11/19/18 03:42 11/19/18 03:30 11/19/18 03:42 Results - Labs CBC & Chem 7: 11/19/18 01:52 11/19/18 02:56 Labs: Laboratory Last Values WBC 16.0 K/mm3 (4.5-11.0) H 11/19/18 01:52 RBC 4.43 M/mm3 (3.65-5.03) 11/19/18 01:52 Hgb 11.8 gm/dl (10.1-14.3) 11/19/18 01:52 Hct 36.6 % (30.3-42.9) 11/19/18 01:52 MCV 83 fl (79-97) 11/19/18 01:52 MCH 27 pg (28-32) L 11/19/18 01:52 MCHC 32 % (30-34) 11/19/18 01:52 RDW 16.0 % (13.2-15.2) H 11/19/18 01:52 Plt Count 276 K/mm3 (140-440) 11/19/18 01:52 Lymph % (Auto) 10.9 % (13.4-35.0) L 11/19/18 01:52 Butler % (Auto) 6.1 % (0.0-7.3) 11/19/18 01:52 Eos % (Auto) 0.0 % (0.0-4.3) 11/19/18 01:52 Baso % (Auto) 0.2 % (0.0-1.8) 11/19/18 01:52 Lymph # 1.8 K/mm3 (1.2-5.4) 11/19/18 01:52 Butler # 1.0 K/mm3 (0.0-0.8) H 11/19/18 01:52 Eos # 0.0 K/mm3 (0.0-0.4) 11/19/18 01:52 Baso # 0.0 K/mm3 (0.0-0.1) 11/19/18 01:52 Seg Neutrophils % 82.8 % (40.0-70.0) H 11/19/18 01:52 Seg Neutrophils # 13.3 K/mm3 (1.8-7.7) H 11/19/18 01:52 POC ABG pH 7.398 (7.35-7.45) 11/19/18 04:11 POC ABG pCO2 35.2 (35-45) 11/19/18 04:11 POC ABG pO2 69 (80-105) L 11/19/18 04:11 POC ABG HCO3 21.7 (22-26 mml/L) 11/19/18 04:11 POC ABG Total CO2 23 (23-27mmol/L) 11/19/18 04:11 POC ABG O2 Sat 94 11/19/18 04:11 POC ABG Base Excess -3 ((-2) - (+3)mmol/L) 11/19/18 04:11 21 % 11/19/18 04:11 Sodium 139 mmol/L (137-145) 11/19/18 02:56 Potassium 4.4 mmol/L (3.6-5.0) 11/19/18 02:56 Chloride 103.1 mmol/L (98-107) 11/19/18 02:56 Carbon Dioxide 24 mmol/L (22-30) 11/19/18 02:56 16 mmol/L 11/19/18 02:56 BUN 14 mg/dL (7-17) 11/19/18 02:56 0.6 mg/dL (0.7-1.2) L 11/19/18 02:56 Estimated GFR > 60 ml/min 11/19/18 02:56 23 % 11/19/18 02:56 Glucose 195 mg/dL (65-100) H 11/19/18 02:56 Calcium 8.8 mg/dL (8.4-10.2) 11/19/18 02:56 Assessment and Plan Assessment and plan: Patient seen and examined, agree with above except change steroids to 125 q 6h
[2018-11-19] MEDS ORDERED: SOLU-Medrol IV SCH (06:00)
[2018-11-19] MEDS: DUONEB *Not for PRN Use IH SCH ×3 (08:26→19:49)
[2018-11-19] MEDS: PULMICORT IH SCH ×2 (08:26→19:49)
[2018-11-19] MEDS: LEVAQUIN 500MG/100ML 500 MG/100 ML BAG IV SCH (09:51)
[2018-11-19] MEDS: HABITROL TD SCH (09:52)
[2018-11-19] MEDS: HEPARIN SUB-Q SCH ×2 (09:53→21:51)
[2018-11-19] MEDS: COLACE PO SCH ×3 (10:02→21:55)
[2018-11-19] MEDS: CLARITIN PO SCH (10:02)
[2018-11-19] MEDS: MUCINEX ER PO SCH ×2 (10:02→21:50)
[2018-11-19] MEDS: SODIUM CHLORIDE FLUSH SYRINGE 10 ML IV SCH ×2 (10:03→21:51)
--- NOTE | 2018-11-19 11:23 | Event Note ---
Date: 11/19/18 Patient with asthma exacerbation. I have seen and examined her. Continue current management.
[2018-11-19] MEDS ORDERED: PNEUMOVAX 23 IM ONE (12:55)
[2018-11-19] MEDS: SOLU-Medrol IV SCH ×3 (13:42→23:51)
[2018-11-20] MEDS: DUONEB *Not for PRN Use IH SCH ×3 (03:37→15:48)
[2018-11-20] MEDS: SOLU-Medrol IV SCH ×2 (05:25→11:32)
[2018-11-20 06:12] VITALS: BP 134/78
[2018-11-20 08:15] LABS: Basophils % (Auto) 0.1 % (0.0-1.8); Hematocrit 38.5 % (30.3-42.9); Hemoglobin 12.1 gm/dl (10.1-14.3); Lymphocytes # (Auto) 1.4 K/mm3 (1.2-5.4); Lymphocytes % (Auto) 8.4 % (13.4-35.0); Mean Corpuscular HGB Conc 32 % (30-34); Mean Corpuscular Volume 83 fl (79-97); Monocytes # (Auto) 0.3 K/mm3 (0.0-0.8); Monocytes % (Auto) 1.8 % (0.0-7.3); Platelet Count 266 K/mm3 (140-440); Red Blood Count 4.62 M/mm3 (3.65-5.03); Red Cell Distribution Width 16.7 % (13.2-15.2)
[2018-11-20 08:30] LABS: BUN/Creatinine Ratio 23; Blood Urea Nitrogen 16 mg/dL (7-17); Calcium 8.8 mg/dL (8.4-10.2); Hemolysis Index 2
[2018-11-20] MEDS: PULMICORT IH SCH (09:29)
[2018-11-20] MEDS: HABITROL TD SCH (11:33)
[2018-11-20] MEDS: COLACE PO SCH ×2 (11:33→15:02)
[2018-11-20] MEDS: LEVAQUIN 500MG/100ML 500 MG/100 ML BAG IV SCH (11:33)
[2018-11-20] MEDS: HEPARIN SUB-Q SCH (11:34)
[2018-11-20] MEDS: SODIUM CHLORIDE FLUSH SYRINGE 10 ML IV SCH (11:36)
[2018-11-20] MEDS: CLARITIN PO SCH (11:36)
[2018-11-20] MEDS: MUCINEX ER PO SCH (11:36)
[2018-11-20] MEDS ORDERED: PNEUMOVAX 23 IM ONE (12:00)
--- NOTE | 2018-11-20 14:42 | Discharge Summary ---
Providers - Providers Date of Admission: 11/19/18 03:24 Date of discharge: 11/20/18 Attending physician: THELMA NGUYEN [facility] Hospitalization Condition: Fair Hospital course: Patient is 43 yo with asthma, morbid obesity. She presented to Emergency Department with shortness of breath. She was seen and evaluated in ED, diagnosed with asthma exacerbation. Patient was started on supplemental Oxygen, solu- medrol and admitted. She improved. By next day, shortness of breath and wheezing had resolved. Her Oxygen saturation was 96% on room air, so she was stable and discharged home. Disposition: - TO HOME OR SELFCARE - Discharge Diagnoses (1) Morbid obesity with BMI of 40.0-44.9, adult Status: Acute (2) Asthma exacerbation Status: Acute Qualifiers: Asthma severity: unspecified severity Asthma persistence: unspecified Qualified Code(s): J45.901 - Unspecified asthma with (acute) exacerbation (3) Asthma with acute exacerbation Status: Acute Core Measure Documentation - Palliative Care Palliative Care/ Comfort Measures: Not Applicable - Core Measures Any of the following diagnoses?: none Exam - Constitutional Vitals: Temp Pulse Resp BP Pulse Ox 97.7 F 99 H 18 134/78 96 11/20/18 04:25 11/20/18 04:25 11/20/18 04:25 11/20/18 04:25 11/20/18 04:25 Plan Activity: advance as tolerated Diet: low fat, low salt Additional Instructions: 1. [facility] Follow up with: YOVANY ELLISON MD [Primary Care Provider] - 3-5 Days Prescriptions: Prednisone [predniSONE 10 mg (6-Day Pack, 21 Tabs)] 10 mg PO .TAPER #1 tab.ds.pk
== END 2018-11-20 17:42 | disposition home or self-care (01) ==
LOC: ED 01:30 → INTOOBSV 03:24 → 3A 03:24
PROVIDERS: ADMIT Internal Medicine; ATTEND Internal Medicine
DX: J44.1 Chronic obstructive pulmonary disease with (acute) exacerbation (principal); J96.01 Acute respiratory failure with hypoxia; D72.829 Elevated white blood cell count, unspecified; F17.200 Nicotine dependence, unspecified, uncomplicated; F41.9 Anxiety disorder, unspecified; Z90.89 Acquired absence of other organs; Z95.0 Presence of cardiac pacemaker; Z91.048 Other nonmedicinal substance allergy status; Z79.899 Other long term (current) drug therapy; Z98.890 Other specified postprocedural states; Z23 Encounter for immunization
CPT/HCPCS: 36415; 71045; 80048; 82803; 85025; 90732; 94640; 94644; 94760; 96365; 96366; 96367; 96372; 96375; 96376; 99291; 99406; G0009; G0378; J1644; J1956; J2920; J2930; J3475; 90471

== ENCOUNTER 2021-03-30 21:11 | Observation (INO) | payer SELFPAY ==
[2021-03-30] MEDS ORDERED: IPRATROPIUM/ALBUTEROL SULFATE 3 ML AMPUL.NEB IH ONE ×2 (21:49→21:51)
--- NOTE | 2021-03-30 22:10 | Emergency Department Report ---
ED Asthma HPI - General Chief Complaint: Dyspnea/Respdistress Stated Complaint: ASTHMA ATTACK PUI?: No Time Seen by Provider: 03/30/21 21:50 Source: EMS Mode of arrival: Stretcher Limitations: No Limitations - History of Present Illness Initial Comments: Patient is a 46-year-old female that presents emergency room with complaints of shortness of breath, cough. Patient states she has had a cough for approximately 1 week and tested negative for COVID-19. Patient states she has a history of asthma since she was a child. Patient states she is supposed to take Dulera and albuterol. Patient dates she has not had Dulera for few months because she cannot afford it. Patient states she normally takes albuterol neb or inhaler twice a day. Patient states she is never been intubated. Patient states she is not currently on antibiotics or steroids. Patient states she saw an urgent care for her cough. Patient states that her asthma attack started approximately 2 hours prior to coming. Patient dates she was so short of breath she had to call EMS. Patient brought in by EMS. Patient denies recent travel. Patient denies recent international travel. Patient denies exposure to the novel coronavirus. Patient denies sick contacts. Patient denies fever and chills. Patient denies loss of smell. Patient denies diarrhea. Patient denies coming in contact with anybody with symptoms of the novel coronavirus. MD Complaint: "asthma attack", shortness of breath, wheezing -: Sudden Asthma History: childhood onset Severity: severe Context: recent URI Associated Symptoms: dry cough Treatments Prior to Arrival: inhaled bronchodilator - Related Data Current Asthma Therapy: inhaled bronchodilator, other (EMS gave the patient 2 g magnesium, albuterol 5, Solu-Medrol 125 mg.) Previous Rx's Medication Instructions Recorded Last Taken Type Albuterol Sulfate [Proventil HFA] 1 - 2 puff IH Q4H PRN #1 hfa.aer.ad 03/13/14 Unknown Rx ALBUTEROL NEB's [Proventil 0.083% 2.5 mg IH TID PRN #1 box 11/18/18 Unknown Rx NEBS] Albuterol Mdi (or & Nicu Only) 2 puff IH QID PRN #1 inhalation 11/18/18 Unknown Rx [ProAir HFA Inhaler] Prednisone [predniSONE 10 mg 10 mg PO .TAPER #1 tab.ds.pk 11/20/18 Unknown Rx (6-Day Pack, 21 Tabs)] Allergies Allergy/AdvReac Type Severity Reaction Status Date / Time amoxicillin trihydrate Allergy Rash Verified 03/30/21 21:21 [From Augmentin] codeine Allergy Rash Verified 03/30/21 21:21 erythromycin base Allergy Rash Verified 03/30/21 21:21 potassium clavulanate Allergy Rash Verified 03/30/21 21:21 [From Augmentin] Sulfa (Sulfonamide Allergy Rash Verified 03/30/21 21:21 Antibiotics) ED Review of Systems ROS: Stated complaint: ASTHMA ATTACK Other details as noted in HPI Constitutional: denies: chills, fever Eyes: denies: eye pain, eye discharge, vision change ENT: denies: ear pain, throat pain Respiratory: see HPI, cough, shortness of breath, wheezing Cardiovascular: denies: chest pain, palpitations Endocrine: no symptoms reported Gastrointestinal: denies: abdominal pain, nausea, diarrhea Genitourinary: denies: urgency, dysuria, discharge Musculoskeletal: denies: back pain, joint swelling, arthralgia Skin: denies: rash, lesions Neurological: denies: headache, weakness, paresthesias Psychiatric: denies: anxiety, depression Hematological/Lymphatic: denies: easy bleeding, easy bruising ED Past Medical Hx - Past Medical History Previous Medical History?: Yes Hx CVA: No Hx Heart Attack/AMI: No Hx Congestive Heart Failure: No Hx Diabetes: No Hx Deep Vein Thrombosis: No Hx Pulmonary Embolism: No Hx GERD: No Hx Liver Disease: No Hx Renal Disease: No Hx Sickle Cell Disease: No Hx Arthritis: No Hx Headaches / Migraines: No Hx Seizures: No Hx Kidney Stones: No Hx Psychiatric Treatment: No Hx Asthma: Yes Hx COPD: Yes Hx Tuberculosis: No Hx Dementia: No Hx HIV: No Additional medical history: heart murmur - Surgical History Past Surgical History?: Yes Hx Coronary Stent: No Hx Open Heart Surgery: No Hx Pacemaker: Yes Hx Internal Defibrillator: No Hx Cholecystectomy: No Hx Appendectomy: Yes Hx Breast Surgery: No - Family History Family history: no significant - Social History Smoking Status: Former Smoker Substance Use Type: None - Medications Home Medications: Home Medications Medication Instructions Recorded Confirmed Last Taken Type Albuterol Sulfate [Proventil HFA] 1 - 2 puff IH Q4H PRN #1 hfa.aer.ad 03/13/14 11/19/18 Unknown Rx ALBUTEROL NEB's [Proventil 0.083% 2.5 mg IH TID PRN #1 box 11/18/18 11/19/18 Unknown Rx NEBS] Albuterol Mdi (or & Nicu Only) 2 puff IH QID PRN #1 inhalation 11/18/18 11/19/18 Unknown Rx [ProAir HFA Inhaler] Prednisone [predniSONE 10 mg 10 mg PO .TAPER #1 tab.ds.pk 11/20/18 Unknown Rx (6-Day Pack, 21 Tabs)] ED Physical Exam - General Limitations: No Limitations General appearance: alert, in no apparent distress - Head Head exam: Present: atraumatic, normocephalic - Eye Eye exam: Present: normal appearance - ENT ENT exam: Present: mucous membranes moist - Neck Neck exam: Present: normal inspection - Respiratory Respiratory exam: Present: respiratory distress, wheezes, decreased breath sounds - Cardiovascular Cardiovascular Exam: Present: regular rate, normal rhythm, normal heart sounds. Absent: systolic murmur, diastolic murmur, rubs, gallop - GI/Abdominal GI/Abdominal exam: Present: soft, normal bowel sounds. Absent: distended, tenderness, guarding - Extremities Exam Extremities exam: Present: normal inspection - Back Exam Back exam: Present: normal inspection - Neurological Exam Neurological exam: Present: alert, oriented X3 - Psychiatric Psychiatric exam: Present: normal affect, normal mood - Skin Skin exam: Present: warm, dry, intact, normal color. Absent: rash ED Course Vital Signs 03/30/21 03/30/21 03/30/21 21:20 21:28 21:31 Temperature 98.9 F Pulse Rate 89 84 Pulse Rate [ Anterior] Pulse Rate [ Posterior] Respiratory 20 28 H Rate Respiratory Rate [Anterior] Respiratory Rate [Posterior ] Blood Pressure 156/92 Blood Pressure 161/88 [Left] O2 Sat by Pulse 98 96 96 Oximetry 03/30/21 03/30/21 03/30/21 21:45 21:55 22:01 Temperature Pulse Rate 85 80 Pulse Rate [ 79 Anterior] Pulse Rate [ 80 Posterior] Respiratory 17 22 Rate Respiratory 17 Rate [Anterior] Respiratory 18 Rate [Posterior ] Blood Pressure 156/92 157/76 Blood Pressure [Left] O2 Sat by Pulse 97 98 Oximetry 03/30/21 03/30/21 03/30/21 22:04 22:15 23:01 Temperature Pulse Rate 83 86 Pulse Rate [ Anterior] Pulse Rate [ Posterior] Respiratory 26 H 18 Rate Respiratory Rate [Anterior] Respiratory Rate [Posterior ] Blood Pressure 156/92 145/80 Blood Pressure [Left] O2 Sat by Pulse 96 90 Oximetry - Reevaluation(s) Reevaluation #1: Patient states she is feeling little better after the albuterol DuoNeb. Patient's oxygen is still low and requiring oxygen support. 03/30/21 22:55 Reevaluation #2: I discussed all results with patient. I discussed plan of care with patient. Patient agrees with plan of care and admission. Patient to be admitted to the hospitalist service. 03/30/21 23:55 - Consultations Consultation #1: Hospitalist consulted for admission. Hospitalist to admit patient. 03/30/21 23:55 ED Medical Decision Making - Lab Data Result diagrams: 03/30/21 21:58 03/30/21 21:58 - Radiology Data Radiology results: report reviewed, image reviewed interpreted by me: Chest x-ray: No pneumonia, no pneumothorax, no foreign body, no osseous findings, no acute findings CHEST 1 VIEW 03/30/2021 10:12 PM INDICATION / CLINICAL INFORMATION: Dyspnea. COMPARISON: November 2018 FINDINGS: SUPPORT DEVICES: None. HEART / MEDIASTINUM: No significant abnormality. LUNGS / PLEURA: No significant pulmonary or pleural abnormality. No pneumothorax. ADDITIONAL FINDINGS: No significant additional findings. IMPRESSION: 1. No acute findings. - Medical Decision Making Patient is a 46-year-old female presents emergency room plaints of cough and shortness of breath and wheezing. Patient has history of asthma. Patient's been having a cough for a week. Patient states her asthma flareup started approximately 1 to 2 hours prior to arrival. He states the flareup was so bad she had to call EMS. Patient was brought in by EMS. Prehospital, the patient was given Solu-Medrol 125 mg, 2 g of magnesium run, 5 m albuterol neb. Patient wasg found to be hypoxic by EMS and continued to have hypoxia even after treatment. Patient was then given a DuoNeb after the initial evaluation. Patient was on 6 L during initial evaluation and the patient was satting 94%. Patient lung sounds and work to breathe improved with DuoNeb. Continue to require oxygen support. Patient had a chest x-ray was negative for acute findings. Patient had labs done which were essentially unremarkable. Patient found to have a elevated calcium most likely this is secondary to steroid treatment in the prehospital setting. Patient required oxygen therapy throughout her stay in the ER. Patient will require admission to the hospital. Patient admitted to the hospital service for further evaluation treatment. Critical care time documented due to the multiple reassessments, prolonged time at the bedside, interpretation of diagnostics and labs. - Differential Diagnosis Shortness of breath, status asthmaticus, hypoxia, respiratory failure Critical Care Time: Yes Critical care time in (mins) excluding proc time.: 35 Critical care attestation.: If time is entered above; I have spent that time in minutes in the direct care of this critically ill patient, excluding procedure time. Critical Care Time: 35 minutes to bear ED Disposition Clinical Impression: Hypoxia, Shortness of breath Asthma with acute exacerbation Qualifiers: Asthma severity: severe Asthma persistence: unspecified Qualified Code(s): J45.901 - Unspecified asthma with (acute) exacerbation Respiratory failure Qualifiers: Chronicity: acute Respiratory failure complication: hypoxia Qualified Code(s): J96.01 - Acute respiratory failure with hypoxia Disposition: ADMITTED INPATIENT Is pt being admited?: Yes Does the pt Need Aspirin: No Condition: Critical Time of Disposition: 23:58
--- NOTE | 2021-03-30 22:25 | XRay Report ---
CHEST 1 VIEW 03/30/2021 10:12 PM INDICATION / CLINICAL INFORMATION: Dyspnea. COMPARISON: November 2018 FINDINGS: SUPPORT DEVICES: None. HEART / MEDIASTINUM: No significant abnormality. LUNGS / PLEURA: No significant pulmonary or pleural abnormality. No pneumothorax. ADDITIONAL FINDINGS: No significant additional findings. IMPRESSION: 1. No acute findings. Signer Name: Bentley Nunes MD Signed: 03/30/2021 10:21 PM Workstation Name: [id number]
[2021-03-30 22:36] LABS: Basophils # (Auto) 0.1 K/mm3 (0.0-0.1); Basophils % (Auto) 0.4 % (0.0-1.8); Eosinophils # (Auto) 0.1 K/mm3 (0.0-0.4); Eosinophils % (Auto) 0.5 % (0.0-4.3); Hematocrit 38.6 % (30.3-42.9); Lymphocytes # (Auto) 2.8 K/mm3 (1.2-5.4); Lymphocytes % (Auto) 18.6 % (13.4-35.0); Mean Corpuscular HGB Conc 31 % (30-34); Mean Corpuscular Volume 86 fl (79-97); Monocytes # (Auto) 0.4 K/mm3 (0.0-0.8); Monocytes % (Auto) 2.8 % (0.0-7.3); Platelet Count 299 K/mm3 (140-440); Red Blood Count 4.46 M/mm3 (3.65-5.03); Red Cell Distribution Width 15.5 % (13.2-15.2)
[2021-03-30 23:00] LABS: Alanine Aminotransferase 31 units/L (7-56); Albumin 3.8 g/dL (3.9-5); Blood Urea Nitrogen 17 mg/dL (7-17); Calcium 9.4 mg/dL (8.4-10.2); Hemolysis Index 8
[2021-03-30 23:05] LABS: BUN/Creatinine Ratio 24
[2021-03-31] MEDS ORDERED: ACETAMINOPHEN 325 MG TAB PO PRN (00:53)
[2021-03-31] MEDS ORDERED: MORPHINE 4 MG/1 ML INJ IV PRN (00:53)
[2021-03-31] MEDS ORDERED: MORPHINE 2 MG/1 ML INJ IV PRN (00:53)
[2021-03-31] MEDS ORDERED: MAGNESIUM HYDROXIDE (MOM) ORAL LIQD UDC PO PRN (00:53)
[2021-03-31] MEDS ORDERED: ONDANSETRON 4 MG/2 ML INJ IV PRN (00:53)
[2021-03-31] MEDS ORDERED: ALBUTEROL 2.5 MG/3 ML NEBU IH PRN (00:53)
--- NOTE | 2021-03-31 01:02 | History and Physical Report ---
History of Present Illness Date of examination: 03/31/21 Date of admission: 03/31/21 00:04 Chief complaint: Shortness of breath Cough History of present illness: 46-year-old female with known history of asthma presenting to the emergency room today complaining of shortness of breath and cough. Symptoms were said to have started few hours prior to presenting in the emergency room. She denies any fever. She denies any sick contacts and no recent travel, denies any contact with anyone with COVID-19. Patient also indicates that she tested negative for COVID-19 about a week ago. She admits that she has not used her Dulera for a few months because she could n ot afford it. She normally takes her albuterol nebulizing treatments and inhaler twice a day. En route to the hospital by EMS patient was given nebulizing treatments, magnesium sulfate and Solu-Medrol with some improvement. She has not been fully vaccinated against COVID-19. Past History Past Medical History: COPD, other (Asthma) Past Surgical History: No surgical history Social history: smoking (Current daily smoker) Family history: no significant family history Medications and Allergies Allergies Allergy/AdvReac Type Severity Reaction Status Date / Time amoxicillin trihydrate Allergy Rash Verified 03/30/21 21:21 [From Augmentin] codeine Allergy Rash Verified 03/30/21 21:21 erythromycin base Allergy Rash Verified 03/30/21 21:21 potassium clavulanate Allergy Rash Verified 03/30/21 21:21 [From Augmentin] Sulfa (Sulfonamide Allergy Rash Verified 03/30/21 21:21 Antibiotics) Home Medications Medication Instructions Recorded Confirmed Last Taken Type Albuterol Sulfate [Proventil HFA] 1 - 2 puff IH Q4H PRN #1 hfa.aer.ad 03/13/14 11/19/18 Unknown Rx ALBUTEROL NEB's [Proventil 0.083% 2.5 mg IH TID PRN #1 box 11/18/18 11/19/18 Unknown Rx NEBS] Albuterol Mdi (or & Nicu Only) 2 puff IH QID PRN #1 inhalation 11/18/18 11/19/18 Unknown Rx [ProAir HFA Inhaler] Prednisone [predniSONE 10 mg 10 mg PO .TAPER #1 tab.ds.pk 11/20/18 Unknown Rx (6-Day Pack, 21 Tabs)] Review of Systems Constitutional: no fever, no chills Ears, nose, mouth and throat: no nasal congestion, no sore throat Cardiovascular: no chest pain, no palpitations Respiratory: cough, shortness of breath, wheezing, no cough with sputum Genitourinary Female: no pelvic pain, no flank pain, no dysuria, no hematuria Musculoskeletal: no neck pain, no low back pain Integumentary: no rash, no pruritis Neurological: no headaches, no confusion Psychiatric: no anxiety, no depression Endocrine: no polyphagia, no polydipsia, no polyuria, no nocturia Exam - Constitutional Vitals: Temp Pulse Resp BP Pulse Ox 97.9 F 77 19 154/87 93 03/31/21 00:03 03/31/21 00:03 03/31/21 00:03 03/31/21 00:03 03/31/21 00:03 General appearance: Present: no acute distress, well-nourished, obese - EENT Eyes: Present: PERRL, EOM intact. Absent: scleral icterus ENT: hearing intact, clear oral mucosa, dentition normal - Neck Neck: Present: supple, normal ROM - Respiratory Respiratory effort: normal Respiratory: bilateral: wheezing - Cardiovascular Rhythm: regular Heart Sounds: Present: S1 & S2. Absent: gallop, systolic murmur, diastolic murmur, rub, click - Extremities Extremities: no ischemia, pulses intact, pulses symmetrical, No edema, normal temperature, normal color, Full ROM Peripheral Pulses: within normal limits - Abdominal General gastrointestinal: Present: soft, non-tender, non-distended, normal bowel sounds. Absent: mass - Integumentary Integumentary: Present: clear, warm, dry, normal turgor. Absent: rash - Musculoskeletal Musculoskeletal: strength equal bilaterally - Psychiatric Psychiatric: appropriate mood/affect, intact judgment & insight, memory intact, cooperative - Neurologic Neurologic: CNII-XII intact, no focal deficits, moves all extremities Results - Labs CBC & Chem 7: 03/30/21 21:58 03/30/21 21:58 Labs: Abnormal lab results 03/30/21 03/30/21 Range/Units 21:58 21:58 WBC 14.9 H (4.5-11.0) K/mm3 MCH 27 L (28-32) pg RDW 15.5 H (13.2-15.2) % Seg Neutrophils % 77.7 H (40.0-70.0) % Seg Neutrophils # 11.6 H (1.8-7.7) K/mm3 Glucose 145 H (65-100) mg/dL Albumin 3.8 L (3.9-5) g/dL Assessment and Plan - Patient Problems (1) Asthma with acute exacerbation Current Visit: Yes Status: Acute Qualifiers: Asthma severity: severe Asthma persistence: unspecified Qualified Code(s): J45.901 - Unspecified asthma with (acute) exacerbation Plan to address problem: Patient placed on nebulizing treatments and IV steroids. Consult placed to tool clerk for evaluation. (2) Hypoxia Current Visit: Yes Status: Acute Plan to address problem: Secondary to asthma exacerbation. Patient placed on oxygen to maintain oxygen saturation greater or equal to 92%. (3) Respiratory failure Current Visit: Yes Status: Acute Qualifiers: Chronicity: acute Respiratory failure complication: hypoxia Qualified Code(s): J96.01 - Acute respiratory failure with hypoxia Plan to address problem: Continue on nebulizing treatments and also placed on oxygen. We will await evaluation by tool clerk. (4) Morbid obesity with BMI of 40.0-44.9, adult Current Visit: No Status: Acute Plan to address problem: Dietary consult placed for evaluation. (5) DVT prophylaxis Current Visit: Yes Status: Acute Plan to address problem: Patient placed on subcutaneous heparin. (6) Full code status Current Visit: Yes Status: Acute Plan to address problem: Patient is full code
[2021-03-31] MEDS: IPRATROPIUM/ALBUTEROL SULFATE 3 ML AMPUL.NEB IH SCH ×4 (03:50→21:13)
[2021-03-31] MEDS: HEPARIN 5,000 UNIT/1 ML VIAL SUB-Q SCH ×3 (06:34→21:43)
[2021-03-31] MEDS: methylPREDNISolone Sod Succinate 40 MG/1 ML INJ IV SCH ×3 (06:40→21:43)
--- NOTE | 2021-03-31 11:14 | Event Note ---
Date: 03/31/21 Patient seen and examined this morning. Reports feeling much better after nebulizer treatment and supplemental O2. Has been without Dulera for at least 4 months due to cost. Does not follow with Pulmonology outpatient. Pulmonology consulted, awaiting final recommendations. Anticipate discharge tomorrow.
[2021-03-31] MEDS ORDERED: guaiFENesin 200 MG TAB PO PRN (22:32)
[2021-03-31] MEDS ORDERED: guaiFENesin 100 MG/5 ML ORAL LIQD PO PRN (23:52)
[2021-04-01] MEDS ORDERED: MORPHINE 2 MG/1 ML INJ IV PRN (01:00)
[2021-04-01] MEDS: methylPREDNISolone Sod Succinate 40 MG/1 ML INJ IV SCH (05:42)
[2021-04-01] MEDS: HEPARIN 5,000 UNIT/1 ML VIAL SUB-Q SCH (05:42)
[2021-04-01 07:52] LABS: Mean Corpuscular HGB Conc 31 % (30-34); Mean Corpuscular Volume 85 fl (79-97); Platelet Count 300 K/mm3 (140-440); Red Blood Count 4.96 M/mm3 (3.65-5.03)
[2021-04-01] MEDS ORDERED: BUDESONIDE 0.5 MG/2 ML NEBU IH SCH (08:00)
[2021-04-01 08:07] LABS: Hematocrit 41.9 % (30.3-42.9); Hemoglobin 12.9 gm/dl (10.1-14.3); INR 0.88 (0.87-1.13)
[2021-04-01 08:11] LABS: Blood Urea Nitrogen 13 mg/dL (7-17); Calcium 9.8 mg/dL (8.4-10.2); Hemolysis Index 6
[2021-04-01 08:18] LABS: BUN/Creatinine Ratio 26
[2021-04-01] MEDS ORDERED: predniSONE 20 MG TAB PO SCH (10:00)
[2021-04-01] MEDS: IPRATROPIUM/ALBUTEROL SULFATE 3 ML AMPUL.NEB IH SCH ×2 (10:08→19:03)
--- NOTE | 2021-04-01 12:44 | Discharge Summary ---
Providers - Providers Date of Admission: 03/31/21 00:04 Date of discharge: 03/29/21 Attending physician: BESSIE RUIZ MD 03/31/21 00:53 Consult to Physician [CONS] Routine Comment: Consulting Provider: ZORAIDA SOSA Physician Instructions: Reason For Exam: RESP.FAILURE,ASTHMA EXAC Primary care physician: INTERMEDIATE ACCOUNTANT Hospitalization Reason for admission: shortness of breath Condition: Good Hospital course: 46-year-old female with history of asthma who presented on 03/31 with complaints of shortness of breath. She was given nebulizing treatments, magnesium sulfate and Solu-Medrol with improvement emergency department. While inpatient she continued to receive steroids and nebulizing treatments. She was evaluated by the Rental Coordinator. Once weaned off of supplemental O2, she was discharged home. Disposition: 01 HOME / SELF CARE / HOMELESS Final Discharge Diagnosis (Prints w/discharge instructions): Acute asthma exacerbation. Acute hypoxic respiratory failure. Morbid obesity Time spent for discharge: 20 minutes Core Measure Documentation - Palliative Care Palliative Care/ Comfort Measures: Not Applicable - Core Measures Any of the following diagnoses?: none Exam - Physical Exam Narrative exam: GENERAL: Well-developed well-nourished. No acute distress. CHEST/LUNGS: CTAB on room air HEART/CARDIOVASCULAR: RRR. No murmur, rubs or gallops appreciated. ABDOMEN: +BS. NT/ND. NEURO: No focal motor deficit. Follows all commands. EXTREMITIES: No cyanosis, clubbing or edema. PSYCH: Cooperative. - Constitutional Vitals: Temp Pulse Resp BP Pulse Ox 97.8 F 82 20 132/71 98 04/01/21 05:04 04/01/21 10:05 04/01/21 10:05 04/01/21 05:04 04/01/21 10:29 Plan Care Plan Goals: Please follow-up with primary care and get a referral to a clinical consultant. Use inhalers as instructed. Please finish steroid taper as instructed. Assessment: Patient presented with acute hypoxic respiratory failure secondary to asthma exacerbation. She was started on steroids and nebulizing treatments. Patient improved. Once stable discharged home with steroid taper and prescription for inhalers. Follow up with: PRIMARY CARE, [Primary Care Provider] - 7 Days Prescriptions: Prednisone [predniSONE 10 mg (6-Day Pack, 21 Tabs)] 10 mg PO .TAPER #1 tab.ds.pk Albuterol Mdi (or & Nicu Only) [ProAir HFA Inhaler] 2 puff IH QID PRN 30 Days #1 each PRN Reason: Shortness Of Breath ALBUTEROL NEB's [Proventil 0.083% NEBS] 2.5 mg IH TID PRN 30 Days #1 box PRN Reason: Wheezing guaiFENesin [Robitussin] 200 mg PO Q6HR PRN #1 oral.liqd PRN Reason: Cough Budesonide/Formoterol Fumarate [Symbicort 80-4.5 Mcg Inhaler] 10.2 gm IH BID 30 Days #3 hfa.aer.ad
[2021-04-01 12:56] VITALS: BP 164/90
--- NOTE | 2021-04-01 14:51 | Event Note ---
Date: 04/01/21 Asked to see in consult for AE-Asthma discharge orders in at time of my evaluation She is very aware of her S&S's and knows to seek medical care if they flare-up feels better minimal wheezing on examination - advised COVID-19 vaccination - discharge planning ongoing and ok pulmonary-jarvis - outpatient f/up
[2021-04-01 16:19] LABS: Total Cells Counted 100
[2021-04-01 16:20] LABS: Platelet Estimate Consistent w Auto
== END 2021-04-01 14:40 | disposition home or self-care (01) ==
LOC: ED 21:11 → 3A 03-31 00:04
PROVIDERS: ADMIT Internal Medicine Geriatric Medicine; ATTEND Student in an Organized Health Care Education/Training Program
DX: J96.01 Acute respiratory failure with hypoxia (principal); J45.901 Unspecified asthma with (acute) exacerbation; J44.9 Chronic obstructive pulmonary disease, unspecified; E66.01 Morbid (severe) obesity due to excess calories; F17.210 Nicotine dependence, cigarettes, uncomplicated; Z68.41 Body mass index [BMI] 40.0-44.9, adult; Z90.49 Acquired absence of other specified parts of digestive tract; Z95.0 Presence of cardiac pacemaker
CPT/HCPCS: 36415; 71045; 80048; 80053; 85025; 85610; 94640; 94644; 94760; 96372; 96374; 96376; 99291; G0378; J1644; J2920; 85007

== ENCOUNTER 2021-06-04 21:55 | Inpatient (IN) | payer SELFPAY ==
[2021-06-04] MEDS ORDERED: ACETAMINOPHEN 325 MG TAB PO ONE (22:04)
[2021-06-04] MEDS ORDERED: levoFLOXacin 500 MG TAB PO ONE (22:10)
[2021-06-04] MEDS ORDERED: ALBUTEROL 8.5 GM MDI INHALATION IH PRN (22:11)
[2021-06-04] MEDS ORDERED: dexAMETHasone 20 MG/5 ML VIAL IV ONE (22:11)
--- NOTE | 2021-06-04 22:28 | Emergency Department Report ---
ED Shortness of Breath HPI - General Chief Complaint: Dyspnea/Respdistress Stated Complaint: SOB Time Seen by Provider: 06/04/21 22:03 Source: EMS Mode of arrival: Stretcher Limitations: No Limitations - History of Present Illness Initial Comments: Patient is a 46-year-old female with past medical history of asthma who is presenting with cough cold congestion shortness of breath. Patient's has tested positive for Covid 19. Patient previously unvaccinated. Patient states she has been feeling ill for approximately 5 days. Shortness of breath is worsened. Patient complaining of a wet cough. Cough and shortness of breath are accompanied by body aches chills. No nausea vomiting or diarrhea at this time. O2 sats were 88% on the patient's initial assessment by paramedics - Related Data Previous Rx's Medication Instructions Recorded Last Taken Type ALBUTEROL NEB's [Proventil 0.083% 2.5 mg IH TID PRN 30 Days #1 box 04/01/21 Unknown Rx NEBS] Albuterol Mdi (or & Nicu Only) 2 puff IH QID PRN 30 Days #1 each 04/01/21 Unknown Rx [ProAir HFA Inhaler] Budesonide/Formoterol Fumarate 10.2 gm IH BID 30 Days #3 04/01/21 Unknown Rx [Symbicort 80-4.5 Mcg Inhaler] hfa.aer.ad Prednisone [predniSONE 10 mg 10 mg PO .TAPER #1 tab.ds.pk 04/01/21 Unknown Rx (6-Day Pack, 21 Tabs)] guaiFENesin [Robitussin] 200 mg PO Q6HR PRN #1 oral.liqd 04/01/21 Unknown Rx Allergies Allergy/AdvReac Type Severity Reaction Status Date / Time amoxicillin trihydrate Allergy Rash Verified 03/31/21 15:32 [From Augmentin] codeine Allergy Rash Verified 03/31/21 15:32 erythromycin base Allergy Rash Verified 03/31/21 15:32 potassium clavulanate Allergy Rash Verified 03/31/21 15:32 [From Augmentin] Sulfa (Sulfonamide Allergy Rash Verified 03/31/21 15:32 Antibiotics) ED Review of Systems ROS: Stated complaint: SOB Other details as noted in HPI Comment: All other systems reviewed and negative ED Past Medical Hx - Past Medical History Hx CVA: No Hx Heart Attack/AMI: No Hx Congestive Heart Failure: No Hx Diabetes: No Hx Deep Vein Thrombosis: No Hx Pulmonary Embolism: No Hx GERD: No Hx Liver Disease: No Hx Renal Disease: No Hx Sickle Cell Disease: No Hx Arthritis: No Hx Headaches / Migraines: No Hx Seizures: No Hx Kidney Stones: No Hx Psychiatric Treatment: No Hx Asthma: Yes Hx COPD: Yes Hx Tuberculosis: No Hx Dementia: No Hx HIV: No Additional medical history: heart murmur - Surgical History Hx Coronary Stent: No Hx Open Heart Surgery: No Hx Pacemaker: Yes Hx Internal Defibrillator: No Hx Cholecystectomy: No Hx Appendectomy: Yes Hx Breast Surgery: No - Social History Smoking Status: Current Every Day Smoker - Medications Home Medications: Home Medications Medication Instructions Recorded Confirmed Last Taken Type ALBUTEROL NEB's [Proventil 0.083% 2.5 mg IH TID PRN 30 Days #1 box 04/01/21 Unknown Rx NEBS] Albuterol Mdi (or & Nicu Only) 2 puff IH QID PRN 30 Days #1 each 04/01/21 Unknown Rx [ProAir HFA Inhaler] Budesonide/Formoterol Fumarate 10.2 gm IH BID 30 Days #3 04/01/21 Unknown Rx [Symbicort 80-4.5 Mcg Inhaler] hfa.aer.ad Prednisone [predniSONE 10 mg 10 mg PO .TAPER #1 tab.ds.pk 04/01/21 Unknown Rx (6-Day Pack, 21 Tabs)] guaiFENesin [Robitussin] 200 mg PO Q6HR PRN #1 oral.liqd 04/01/21 Unknown Rx ED Physical Exam - General Limitations: No Limitations General appearance: alert, in no apparent distress - Head Head exam: Present: atraumatic, normocephalic - Eye Eye exam: Present: normal appearance, PERRL, EOMI - ENT ENT exam: Present: mucous membranes moist - Neck Neck exam: Present: normal inspection - Respiratory Respiratory exam: Present: respiratory distress, wheezes. Absent: normal lung sounds bilaterally, rales, rhonchi, stridor - Cardiovascular Cardiovascular Exam: Present: regular rate, normal rhythm. Absent: systolic murmur, diastolic murmur, rubs, gallop - GI/Abdominal GI/Abdominal exam: Present: soft, normal bowel sounds. Absent: distended, tende rness, guarding - Extremities Exam Extremities exam: Present: normal inspection - Back Exam Back exam: Present: normal inspection - Neurological Exam Neurological exam: Present: alert, oriented X3 - Psychiatric Psychiatric exam: Present: normal affect, normal mood - Skin Skin exam: Present: warm, dry, intact, normal color. Absent: rash ED Course Vital Signs 06/04/21 21:55 Temperature 101.7 F H Pulse Rate 101 H Respiratory 23 Rate Blood Pressure 141/100 [Right] O2 Sat by Pulse 94 Oximetry ED Medical Decision Making - Lab Data Result diagrams: 06/04/21 22:40 06/04/21 22:40 Lab Results 06/04/21 06/04/21 06/04/21 Range/Units 22:40 22:40 22:40 WBC 4.8 (4.5-11.0) K/mm3 RBC 4.71 (3.65-5.03) M/mm3 Hgb 12.4 (10.1-14.3) gm/dl Hct 40.1 (30.3-42.9) % MCV 85 (79-97) fl MCH 26 L (28-32) pg MCHC 31 (30-34) % RDW 17.2 H (13.2-15.2) % Plt Count 213 (140-440) K/mm3 Lymph % (Auto) 23.9 (13.4-35.0) % [place] % (Auto) 3.6 (0.0-7.3) % Eos % (Auto) 0.6 (0.0-4.3) % Baso % (Auto) 0.5 (0.0-1.8) % Lymph # (Auto) 1.2 (1.2-5.4) K/mm3 [place] # (Auto) 0.2 (0.0-0.8) K/mm3 Eos # (Auto) 0.0 (0.0-0.4) K/mm3 Baso # (Auto) 0.0 (0.0-0.1) K/mm3 Seg Neutrophils % 71.4 H (40.0-70.0) % Seg Neutrophils # 3.4 (1.8-7.7) K/mm3 D-Dimer 440.91 H (0-234) ng/mlDDU Sodium 138 (137-145) mmol/L Potassium 4.8 (3.6-5.0) mmol/L Chloride 99.8 (98-107) mmol/L Carbon Dioxide 23 (22-30) mmol/L Anion Gap 20 mmol/L BUN 6 L (7-17) mg/dL Creatinine 0.5 L (0.6-1.2) mg/dL Estimated GFR > 60 ml/min BUN/Creatinine Ratio 12 % Glucose 95 (65-100) mg/dL Lactic Acid (0.7-2.0) mmol/L Calcium 8.1 L (8.4-10.2) mg/dL Total Bilirubin 0.20 (0.1-1.2) mg/dL AST 91 H (5-40) units/L ALT 40 (7-56) units/L Alkaline Phosphatase 52 (35-129) units/L Total Protein 6.9 (6.3-8.2) g/dL Albumin 3.1 L (3.9-5) g/dL Albumin/Globulin Ratio 0.8 % /06/25 Range/Units 23:18 WBC (4.5-11.0) K/mm3 RBC (3.65-5.03) M/mm3 Hgb (10.1-14.3) gm/dl Hct (30.3-42.9) % MCV (79-97) fl MCH (28-32) pg MCHC (30-34) % RDW (13.2-15.2) % Plt Count (140-440) K/mm3 Lymph % (Auto) (13.4-35.0) % [place] % (Auto) (0.0-7.3) % Eos % (Auto) (0.0-4.3) % Baso % (Auto) (0.0-1.8) % Lymph # (Auto) (1.2-5.4) K/mm3 [place] # (Auto) (0.0-0.8) K/mm3 Eos # (Auto) (0.0-0.4) K/mm3 Baso # (Auto) (0.0-0.1) K/mm3 Seg Neutrophils % (40.0-70.0) % Seg Neutrophils # (1.8-7.7) K/mm3 D-Dimer (0-234) ng/mlDDU Sodium (137-145) mmol/L Potassium (3.6-5.0) mmol/L Chloride (98-107) mmol/L Carbon Dioxide (22-30) mmol/L Anion Gap mmol/L BUN (7-17) mg/dL Creatinine (0.6-1.2) mg/dL Estimated GFR ml/min BUN/Creatinine Ratio % Glucose (65-100) mg/dL Lactic Acid 1.30 (0.7-2.0) mmol/L Calcium (8.4-10.2) mg/dL Total Bilirubin (0.1-1.2) mg/dL AST (5-40) units/L ALT (7-56) units/L Alkaline Phosphatase (35-129) units/L Total Protein (6.3-8.2) g/dL Albumin (3.9-5) g/dL Albumin/Globulin Ratio % - Radiology Data CHEST 1 VIEW INDICATION / CLINICAL INFORMATION: cough fever. COMPARISON: 03/30/2021 FINDINGS: SUPPORT DEVICES: None. HEART / MEDIASTINUM: No significant abnormality. LUNGS / PLEURA: Bilateral pulmonary opacities are present. Areas of consolidation are developing in the right lower lobe and to a lesser degree, right upper lobe. No significant pleural effusion. No pneumothorax. ADDITIONAL FINDINGS: No significant additional findings. IMPRESSION: 1. Bilateral pulmonary opacities. The appearance is highly suggestive for multifocal bilateral Covid pneumonia. Clinical correlation is recommended. Signer Name: Ashley Small MD Signed: 06/04/2021 10:37 PM Workstation Name: [id number] - Medical Decision Making Patient is a 46-year-old female's presenting with shortness of breath. Patient was 88% on room air and in the mid 90s on 3 L of oxygen. Patient's chest x-ray is consistent with Covid pneumonia. Patient given Decadron and st arted on Levaquin. Patient be admitted for further management. CT angio of the chest has been ordered given the fact that the patient had elevated D-dimer. D-dimer likely elevated secondary to Covid infection however will rule out pulmonary embolus as well. Critical care attestation.: If time is entered above; I have spent that time in minutes in the direct care of this critically ill patient, excluding procedure time. ED Disposition Clinical Impression: Hypoxia, Suspected COVID-19 virus infection Pneumonia Qualifiers: Pneumonia type: due to unspecified organism Laterality: bilateral Lung location: unspecified part of lung Qualified Code(s): J18.9 - Pneumonia, unspecified organism Asthma with acute exacerbation Qualifiers: Asthma severity: moderate Disposition: 09 ADMITTED INPATIENT Is pt being admited?: Yes Does the pt Need Aspirin: No Condition: Stable Instructions: Bacterial Pneumonia (ED) Time of Disposition: 00:21
--- NOTE | 2021-06-04 22:41 | XRay Report ---
CHEST 1 VIEW INDICATION / CLINICAL INFORMATION: cough fever. COMPARISON: 03/30/2021 FINDINGS: SUPPORT DEVICES: None. HEART / MEDIASTINUM: No significant abnormality. LUNGS / PLEURA: Bilateral pulmonary opacities are present. Areas of consolidation are developing in t he right lower lobe and to a lesser degree, right upper lobe. No significant pleural effusion. No pne umothorax. ADDITIONAL FINDINGS: No significant additional findings. IMPRESSION: 1. Bilateral pulmonary opacities. The appearance is highly suggestive for multifocal bilateral Covid pneumonia. Clinical correlation is recommended. Signer Name: Ashley Small MD Signed: 06/04/2021 10:37 PM Workstation Name: [id number]
[2021-06-04 23:05] LABS: Basophils % (Auto) 0.5 % (0.0-1.8); Eosinophils % (Auto) 0.6 % (0.0-4.3); Lymphocytes # (Auto) 1.2 K/mm3 (1.2-5.4); Lymphocytes % (Auto) 23.9 % (13.4-35.0); Mean Corpuscular HGB Conc 31 % (30-34); Mean Corpuscular Volume 85 fl (79-97); Monocytes # (Auto) 0.2 K/mm3 (0.0-0.8); Monocytes % (Auto) 3.6 % (0.0-7.3); Platelet Count 213 K/mm3 (140-440); Red Blood Count 4.71 M/mm3 (3.65-5.03); Red Cell Distribution Width 17.2 % (13.2-15.2)
[2021-06-04 23:07] LABS: Hematocrit 40.1 % (30.3-42.9); Hemoglobin 12.4 gm/dl (10.1-14.3)
[2021-06-04 23:28] LABS: Alanine Aminotransferase 40 units/L (7-56); Albumin 3.1 g/dL (3.9-5); Blood Urea Nitrogen 6 mg/dL (7-17); Calcium 8.1 mg/dL (8.4-10.2)
[2021-06-04 23:38] LABS: BUN/Creatinine Ratio 12
[2021-06-05 00:10] LABS: Hemolysis Index 77
[2021-06-05] MEDS ORDERED: levoFLOXacin 500 MG TAB ONE (00:17)
[2021-06-05] MEDS ORDERED: dexAMETHasone 20 MG/5 ML VIAL ONE (00:17)
[2021-06-05] MEDS ORDERED: ACETAMINOPHEN 325 MG TAB ONE (00:18)
[2021-06-05] MEDS ORDERED: MORPHINE 2 MG/1 ML INJ IV PRN (01:41)
[2021-06-05] MEDS ORDERED: ONDANSETRON 4 MG/2 ML INJ IV PRN (01:41)
[2021-06-05] MEDS ORDERED: ALBUTEROL 2.5 MG/3 ML NEBU IH PRN ×2 (01:41→01:44)
[2021-06-05] MEDS ORDERED: HYDROmorphone 1 MG/1 ML INJ IV PRN (01:41)
[2021-06-05] MEDS ORDERED: hydrALAZINE 20 MG/1 ML INJ IV PRN (01:44)
[2021-06-05] MEDS ORDERED: ALBUTEROL 8.5 GM MDI INHALATION IH PRN (01:44)
--- NOTE | 2021-06-05 01:49 | History and Physical Report ---
History of Present Illness Date of examination: 06/05/21 Date of admission: 06/05/21 Chief complaint: Shortness of breath History of present illness: 46-year-old female with past medical history of asthma who is presenting with cough cold congestion shortness of breath. Patient's has tested positive for Covid 19. Patient previously unvaccinated. Patient states she has been feeling ill for approximately 5 days. Shortness of breath is worsened. Patient complaining of a wet cough. Cough and shortness of breath are accompanied by body aches chills. No nausea vomiting or diarrhea at this time. O2 sats were 88% on the patient's initial assessment by paramedics In the emergency room patient chest x-ray shows bilateral pulmonary opacities. The appearance is highly suggestive for multifocal bilateral COVID pneumonia. She will going to admit the patient . put the patient on Levaquin 750 mg IV daily, dexamethasone 6 mg IV daily. Will consult pulmonary as well as infectious disease for evaluation Med rec is done Past History Past Medical History: COPD, other (Asthma heart murmur) Medications and Allergies Allergies Allergy/AdvReac Type Severity Reaction Status Date / Time amoxicillin trihydrate Allergy Rash Verified 03/31/21 15:32 [From Augmentin] codeine Allergy Rash Verified 03/31/21 15:32 erythromycin base Allergy Rash Verified 03/31/21 15:32 potassium clavulanate Allergy Rash Verified 03/31/21 15:32 [From Augmentin] Sulfa (Sulfonamide Allergy Rash Verified 03/31/21 15:32 Antibiotics) Home Medications Medication Instructions Recorded Confirmed Last Taken Type ALBUTEROL NEB's [Proventil 0.083% 2.5 mg IH TID PRN 30 Days #1 box 04/01/21 Unknown Rx NEBS] Albuterol Mdi (or & Nicu Only) 2 puff IH QID PRN 30 Days #1 each 04/01/21 Unknown Rx [ProAir HFA Inhaler] Budesonide/Formoterol Fumarate 10.2 gm IH BID 30 Days #3 04/01/21 Unknown Rx [Symbicort 80-4.5 Mcg Inhaler] hfa.aer.ad Prednisone [predniSONE 10 mg 10 mg PO .TAPER #1 tab.ds.pk 04/01/21 Unknown Rx (6-Day Pack, 21 Tabs)] guaiFENesin [Robitussin] 200 mg PO Q6HR PRN #1 oral.liqd 04/01/21 Unknown Rx Active Meds: Active Medications Albuterol (Albuterol 8.5 Gm Mdi Inhalation) 2 puff IH Q4HRT PRN PRN Reason: Shortness Of Breath Review of Systems All systems: negative Respiratory: cough, shortness of breath, dyspnea on exertion Exam - Constitutional Vitals: Temp Pulse Resp BP Pulse Ox 101.7 F H 93 H 23 174/85 93 06/04/21 21:55 06/05/21 00:15 06/05/21 00:29 06/05/21 00:15 06/05/21 00:29 General appearance: Present: no acute distress, well-nourished - EENT Eyes: Present: PERRL ENT: hearing intact, clear oral mucosa - Neck Neck: Present: supple, normal ROM - Respiratory Respiratory effort: normal Respiratory: bilateral: diminished - Cardiovascular Heart Sounds: Present: S1 & S2. Absent: rub, click - Extremities Extremities: pulses symmetrical, No edema Peripheral Pulses: within normal limits - Abdominal General gastrointestinal: Present: soft, non-tender, non-distended, normal bowel sounds Female genitourinary: Present: normal - Integumentary Integumentary: Present: clear, warm, dry - Musculoskeletal Musculoskeletal: gait normal, strength equal bilaterally - Psychiatric Psychiatric: appropriate mood/affect, intact judgment & insight - Neurologic Neurologic: CNII-XII intact, moves all extremities Results - Labs CBC & Chem 7: 06/04/21 22:40 06/04/21 22:40 Labs: Laboratory Last Values WBC 4.8 K/mm3 (4.5-11.0) 06/04/21 22:40 RBC 4.71 M/mm3 (3.65-5.03) 06/04/21 22:40 Hgb 12.4 gm/dl (10.1-14.3) 06/04/21 22:40 Hct 40.1 % (30.3-42.9) 06/04/21 22:40 MCV 85 fl (79-97) 06/04/21 22:40 MCH 26 pg (28-32) L 06/04/21 22:40 MCHC 31 % (30-34) 06/04/21 22:40 RDW 17.2 % (13.2-15.2) H 06/04/21 22:40 Plt Count 213 K/mm3 (140-440) 06/04/21 22:40 Lymph % (Auto) 23.9 % (13.4-35.0) 06/04/21 22:40 [place] % (Auto) 3.6 % (0.0-7.3) 06/04/21 22:40 Eos % (Auto) 0.6 % (0.0-4.3) 06/04/21 22:40 Baso % (Auto) 0.5 % (0.0-1.8) 06/04/21 22:40 Lymph # (Auto) 1.2 K/mm3 (1.2-5.4) 06/04/21 22:40 [place] # (Auto) 0.2 K/mm3 (0.0-0.8) 06/04/21 22:40 Eos # (Auto) 0.0 K/mm3 (0.0-0.4) 06/04/21 22:40 Baso # (Auto) 0.0 K/mm3 (0.0-0.1) 06/04/21 22:40 Seg Neutrophils % 71.4 % (40.0-70.0) H 06/04/21 22:40 Seg Neutrophils # 3.4 K/mm3 (1.8-7.7) 06/04/21 22:40 D-Dimer 440.91 ng/mlDDU (0-234) H 06/04/21 22:40 Sodium 138 mmol/L (137-145) 06/04/21 22:40 Potassium 4.8 mmol/L (3.6-5.0) 06/04/21 22:40 Chloride 99.8 mmol/L (98-107) 06/04/21 22:40 Carbon Dioxide 23 mmol/L (22-30) 06/04/21 22:40 Anion Gap 20 mmol/L 06/04/21 22:40 BUN 6 mg/dL (7-17) L 06/04/21 22:40 Creatinine 0.5 mg/dL (0.6-1.2) L 06/04/21 22:40 Estimated GFR > 60 ml/min 06/04/21 22:40 BUN/Creatinine Ratio 12 % 06/04/21 22:40 Glucose 95 mg/dL (65-100) 06/04/21 22:40 Lactic Acid 1.30 mmol/L (0.7-2.0) 06/04/21 23:18 Calcium 8.1 mg/dL (8.4-10.2) L 06/04/21 22:40 Ferritin 86.7 ng/mL (10.0-200.0) 06/04/21 22:40 Total Bilirubin 0.20 mg/dL (0.1-1.2) 06/04/21 22:40 AST 91 units/L (5-40) H 06/04/21 22:40 ALT 40 units/L (7-56) 06/04/21 22:40 Alkaline Phosphatase 52 units/L (35-129) 06/04/21 22:40 Lactate Dehydrogenase 963 units/L (91-180) H 06/04/21 22:40 C-Reactive Protein 2.60 mg/dL (0.00-1.30) H 06/04/21 22:40 Total Protein 6.9 g/dL (6.3-8.2) 06/04/21 22:40 Albumin 3.1 g/dL (3.9-5) L 06/04/21 22:40 Albumin/Globulin Ratio 0.8 % 06/04/21 22:40 HCG, Qual Negative (Negative) 06/05/21 00:44 - Imaging and Cardiology Chest x-ray: report reviewed Assessment and Plan VTE prophylaxis?: Chemical Plan of care discussed with patient/family: Yes - Patient Problems (1) Suspected COVID-19 virus infection Current Visit: Yes Status: Acute Plan to address problem: Admit the patient to the medical floor. Oxygen via nasal cannula dry cell tester pulmonate DuoNeb by nebulizer every 4 hours. Levaquin 750 mg IV daily. Dexamethasone 6 mg IV daily. We will send the Covid PCR. Follow Covid inflammatory marker. Consult pulmonary as well as infectious disease (2) Asthma with acute exacerbation Current Visit: Yes Status: Acute Qualifiers: Asthma severity: moderate Plan to address problem: Oxygen via nasal cannula dry cell tester pulmonate DuoNeb by nebulizer every 4 hours. Dexamethasone 6 mg IV daily. (3) Pneumonia Current Visit: Yes Status: Acute Qualifiers: Pneumonia type: due to unspecified organism Laterality: bilateral Lung location: unspecified part of lung Qualified Code(s): J18.9 - Pneumonia, unspecified organism Plan to address problem: Oxygen via nasal cannula dry cell tester pulmonate DuoNeb by nebulizer every 4 hours. Levaquin 750 mg IV daily. Dexamethasone 6 mg IV daily. We will send the Covid PCR. Follow Covid inflammatory marker. Consult pulmonary as well as infectious disease (4) Morbid obesity with BMI of 40.0-44.9, adult Current Visit: No Status: Acute Plan to address problem: We will counseled the patient regarding weight reduction. (5) Respiratory failure Current Visit: No Status: Acute Plan to address problem: Oxygen via nasal cannula dry cell tester pulmonate DuoNeb by nebulizer every 4 hours. Dexamethasone 6 mg IV daily. We will send the Covid PCR. Follow Covid inflammatory marker. Consult pulmonary as well as infectious disease (6) DVT prophylaxis Current Visit: No Status: Acute Plan to address problem: Heparin 5000 units subcu every 8 hours for DVT prophylaxis. Pepcid 20 mg p.o. twice daily for GI prophylaxis. Patient is a full code
[2021-06-05] MEDS ORDERED: AZITHROMYCIN/NS 500 MG/250 ML 500 MG/250 ML BAG IV SCH (02:00)
[2021-06-05] MEDS ORDERED: cefTRIAXone/NS 2 GM/100 ML 2 GM/100 ML BAG IV SCH (02:00)
--- NOTE | 2021-06-05 02:37 | Cat Scan Report ---
CTA CHEST WITH IV CONTRAST INDICATION / CLINICAL INFORMATION: hypoxia, elevated ddimer. TECHNIQUE: Axial CT images were obtained through the chest after injection of 100 cc IV contrast (Omnipaque 350) . 3 plane MIP and/or 3D reconstructions were produced. All CT scans at this location are performed us ing CT dose reduction for KEVON by means of automated exposure control. COMPARISON: Chest radiograph obtained today FINDINGS: PULMONARY ARTERIES: No pulmonary emboli. THORACIC AORTA: No significant abnormality. HEART: No significant abnormality. CORONARY ARTERIES: No significant calcification. PLEURA: No pleural effusion. No pneumothorax. LYMPH NODES: No significant adenopathy. LUNGS: Multiple areas of groundglass opacities are seen throughout both lungs. No large area of conso lidation is noted. The appearance is typical for that of multifocal viral pneumonia. No pleural effus ion. ADDITIONAL FINDINGS: None. UPPER ABDOMEN: No acute findings. SKELETAL STRUCTURES: No significant acute osseous abnormality. Mild to moderate spondylitic changes a re present throughout the visualized thoracic spine. IMPRESSION: 1. No CT evidence for pulmonary embolism. 2. Multiple bilateral groundglass pulmonary opacities are present. The appearance is typical for that of Covid pneumonia. Signer Name: Ashley Small MD Signed: 06/05/2021 2:32 AM Workstation Name: [id number]
[2021-06-05] MEDS: HEPARIN 5,000 UNIT/1 ML VIAL SUB-Q SCH ×3 (05:45→22:46)
--- NOTE | 2021-06-05 09:58 | Progress Note ---
Assessment and Plan Assessment and plan: -- Suspected COVID-19 virus infection/PUI Current Visit: Yes Status: Acute Oxygen via nasal cannula tool planner pulmonate DuoNeb by nebulizer every 4 hours. Contact and droplet isolation Chavarria PCR test is sent pending report Continue Levaquin 750 mg IV daily. Dexamethasone 6 mg IV daily. Oxygen evaluation ID and pulmonary consulted by admitting physician, Follow inflammatory markers, follow ID evaluation and recommendations --Acute hypoxic respiratory failure on 5 L nasal cannula oxygen Current Visit: No Status: Acute Oxygen via nasal cannula tool planner pulmonate DuoNeb by nebulizer every 4 hours. Dexamethasone 6 mg IV daily. We will send the Covid PCR. Follow Covid inflammatory marker. Consult pulmonary as well as infectious disease Start remdesivir if COVID-19 is positive --Acute exacerbation of bronchial asthma Current Visit: Yes Status: Acute Oxygen via nasal cannula titrate O2 sats to more than 90% DuoNeb IV steroids Dexamethasone 6 mg IV daily. IV antibiotics --Multifocal pneumonia/CAP versus Covid pneumonia Current Visit: Yes Status: Acute Continue empiric antibiotics, Follow cultures Follow procalcitonin levels --Morbid obesity with BMI of 40.0-44.9, adult Current Visit: No Status: Acute We will counseled the patient regarding weight reduction. Diet modification exercise as tolerated and weight reduction When medically stable --Possible obstructive sleep apnea; Current Visit: No Status: Chronic Patient needs outpatient sleep study to rule out ZAID CPAP BiPAP at night if needed --DVT prophylaxis Current Visit: No Status: Acute Heparin 5000 units subcu every 8 hours for DVT prophylaxis. Pepcid 20 mg p.o.twice daily for GI prophylaxis. Patient is a full code --full CODE STATUS Will closely monitor patient and adjust management as needed Plan of care reviewed with the patient and her nurse Follow consultants evaluation recommendations Continue contact and droplet isolation Prolonged care; 40-minute History Interval history: I have seen and examined the patient at the bedside this morning Patient's chart and medications reviewed Patient was admitted with PUI, isolation Chavarria PCR test sent, pending report Patient complains of mild shortness of breath Hospitalist Physical - Constitutional Vitals: Temp Pulse Resp BP Pulse Ox 98.0 F 88 22 113/53 90 06/05/21 03:41 06/05/21 03:15 06/05/21 03:15 06/05/21 03:15 06/05/21 03:15 General appearance: Present: no acute distress, well-nourished, obese (Morbidly obese) - EENT Eyes: Present: PERRL, EOM intact - Neck Neck: Present: supple, normal ROM - Respiratory Respiratory effort: normal Respiratory: bilateral: diminished, rhonchi, negative: rales, wheezing - Cardiovascular Rhythm: regular Heart Sounds: Present: S1 & S2 - Extremities Extremities: no ischemia, No edema - Abdominal General gastrointestinal: soft, non-tender, non-distended, normal bowel sounds - Integumentary Integumentary: Present: clear, warm - Psychiatric Psychiatric: appropriate mood/affect - Neurologic Neurologic: moves all extremities HEART Score - HEART Score Troponin: WBC 4.8 K/mm3 (4.5-11.0) 06/04/21 22:40 RBC 4.71 M/mm3 (3.65-5.03) 06/04/21 22:40 Hgb 12.4 gm/dl (10.1-14.3) 06/04/21 22:40 Hct 40.1 % (30.3-42.9) 06/04/21 22:40 MCV 85 fl (79-97) 06/04/21 22:40 MCH 26 pg (28-32) L 06/04/21 22:40 MCHC 31 % (30-34) 06/04/21 22:40 RDW 17.2 % (13.2-15.2) H 06/04/21 22:40 Plt Count 213 K/mm3 (140-440) 06/04/21 22:40 Lymph % (Auto) 23.9 % (13.4-35.0) 06/04/21 22:40 [place] % (Auto) 3.6 % (0.0-7.3) 06/04/21 22:40 Eos % (Auto) 0.6 % (0.0-4.3) 06/04/21 22:40 Baso % (Auto) 0.5 % (0.0-1.8) 06/04/21 22:40 Lymph # (Auto) 1.2 K/mm3 (1.2-5.4) 06/04/21 22:40 [place] # (Auto) 0.2 K/mm3 (0.0-0.8) 06/04/21 22:40 Eos # (Auto) 0.0 K/mm3 (0.0-0.4) 06/04/21 22:40 Baso # (Auto) 0.0 K/mm3 (0.0-0.1) 06/04/21 22:40 Seg Neutrophils % 71.4 % (40.0-70.0) H 06/04/21 22:40 Seg Neutrophils # 3.4 K/mm3 (1.8-7.7) 06/04/21 22:40 D-Dimer 440.91 ng/mlDDU (0-234) H 06/04/21 22:40 Sodium 138 mmol/L (137-145) 06/04/21 22:40 Potassium 4.8 mmol/L (3.6-5.0) 06/04/21 22:40 Chloride 99.8 mmol/L (98-107) 06/04/21 22:40 Carbon Dioxide 23 mmol/L (22-30) 06/04/21 22:40 Anion Gap 20 mmol/L 06/04/21 22:40 BUN 6 mg/dL (7-17) L 06/04/21 22:40 Creatinine 0.5 mg/dL (0.6-1.2) L 06/04/21 22:40 Estimated GFR > 60 ml/min 06/04/21 22:40 BUN/Creatinine Ratio 12 % 06/04/21 22:40 Glucose 95 mg/dL (65-100) 06/04/21 22:40 Lactic Acid 1.10 mmol/L (0.7-2.0) 06/05/21 04:58 Calcium 8.1 mg/dL (8.4-10.2) L 06/04/21 22:40 Ferritin 86.7 ng/mL (10.0-200.0) 06/04/21 22:40 Total Bilirubin 0.20 mg/dL (0.1-1.2) 06/04/21 22:40 AST 91 units/L (5-40) H 06/04/21 22:40 ALT 40 units/L (7-56) 06/04/21 22:40 Alkaline Phosphatase 52 units/L (35-129) 06/04/21 22:40 Lactate Dehydrogenase 963 units/L (91-180) H 06/04/21 22:40 C-Reactive Protein 2.60 mg/dL (0.00-1.30) H 06/04/21 22:40 Total Protein 6.9 g/dL (6.3-8.2) 06/04/21 22:40 Albumin 3.1 g/dL (3.9-5) L 06/04/21 22:40 Albumin/Globulin Ratio 0.8 % 06/04/21 22:40 HCG, Qual Negative (Negative) 06/05/21 00:44 Results - Labs CBC & Chem 7: 06/04/21 22:40 06/04/21 22:40 Labs: Laboratory Last Values WBC 4.8 K/mm3 (4.5-11.0) 06/04/21 22:40 RBC 4.71 M/mm3 (3.65-5.03) 06/04/21 22:40 Hgb 12.4 gm/dl (10.1-14.3) 06/04/21 22:40 Hct 40.1 % (30.3-42.9) 06/04/21 22:40 MCV 85 fl (79-97) 06/04/21 22:40 MCH 26 pg (28-32) L 06/04/21 22:40 MCHC 31 % (30-34) 06/04/21 22:40 RDW 17.2 % (13.2-15.2) H 06/04/21 22:40 Plt Count 213 K/mm3 (140-440) 06/04/21 22:40 Lymph % (Auto) 23.9 % (13.4-35.0) 06/04/21 22:40 [place] % (Auto) 3.6 % (0.0-7.3) 06/04/21 22:40 Eos % (Auto) 0.6 % (0.0-4.3) 06/04/21 22:40 Baso % (Auto) 0.5 % (0.0-1.8) 06/04/21 22:40 Lymph # (Auto) 1.2 K/mm3 (1.2-5.4) 06/04/21 22:40 [place] # (Auto) 0.2 K/mm3 (0.0-0.8) 06/04/21 22:40 Eos # (Auto) 0.0 K/mm3 (0.0-0.4) 06/04/21 22:40 Baso # (Auto) 0.0 K/mm3 (0.0-0.1) 06/04/21 22:40 Seg Neutrophils % 71.4 % (40.0-70.0) H 06/04/21 22:40 Seg Neutrophils # 3.4 K/mm3 (1.8-7.7) 06/04/21 22:40 D-Dimer 440.91 ng/mlDDU (0-234) H 06/04/21 22:40 Sodium 138 mmol/L (137-145) 06/04/21 22:40 Potassium 4.8 mmol/L (3.6-5.0) 06/04/21 22:40 Chloride 99.8 mmol/L (98-107) 06/04/21 22:40 Carbon Dioxide 23 mmol/L (22-30) 06/04/21 22:40 Anion Gap 20 mmol/L 06/04/21 22:40 BUN 6 mg/dL (7-17) L 06/04/21 22:40 Creatinine 0.5 mg/dL (0.6-1.2) L 06/04/21 22:40 Estimated GFR > 60 ml/min 06/04/21 22:40 BUN/Creatinine Ratio 12 % 06/04/21 22:40 Glucose 95 mg/dL (65-100) 06/04/21 22:40 Lactic Acid 1.10 mmol/L (0.7-2.0) 06/05/21 04:58 Calcium 8.1 mg/dL (8.4-10.2) L 06/04/21 22:40 Ferritin 86.7 ng/mL (10.0-200.0) 06/04/21 22:40 Total Bilirubin 0.20 mg/dL (0.1-1.2) 06/04/21 22:40 AST 91 units/L (5-40) H 06/04/21 22:40 ALT 40 units/L (7-56) 06/04/21 22:40 Alkaline Phosphatase 52 units/L (35-129) 06/04/21 22:40 Lactate Dehydrogenase 963 units/L (91-180) H 06/04/21 22:40 C-Reactive Protein 2.60 mg/dL (0.00-1.30) H 06/04/21 22:40 Total Protein 6.9 g/dL (6.3-8.2) 06/04/21 22:40 Albumin 3.1 g/dL (3.9-5) L 06/04/21 22:40 Albumin/Globulin Ratio 0.8 % 06/04/21 22:40 HCG, Qual Negative (Negative) 06/05/21 00:44 Microbiology: Microbiology 06/04/21 23:05 Peripheral/Venous Blood Culture - Preliminary Culture in Progress 06/04/21 23:18 Peripheral/Venous Blood Culture - Preliminary Culture in Progress Active Medications - Current Medications Current Medications: Generic Name Dose Route Start Last Admin Trade Name Freq PRN Reason Stop Dose Admin Acetaminophen 650 mg 06/05/21 01:41 Acetaminophen 325 Mg Tab PO Q4H PRN Pain MILD(1-3)/Fever >100.5/VILLALOBOS Albuterol 2.5 mg 06/05/21 01:41 Albuterol 2.5 Mg/3 Ml Nebu IH Q4HRT PRN Shortness Of Breath Albuterol 2 puff 06/05/21 01:44 Albuterol 8.5 Gm Mdi Inhalation IH QID PRN Shortness Of Breath Albuterol/Ipratropium 1 ampul 06/05/21 02:00 Ipratropium/Albuterol Sulfate 3 Ml Ampul.Neb IH Q6HRT [facility] Arformoterol Tartrate 15 mcg 06/05/21 08:00 Arformoterol 15 Mcg/2 Ml Nebu IH Q12HRT [facility] Budesonide 0.5 mg 06/05/21 08:00 Budesonide 0.5 Mg/2 Ml Nebu IH Q12HRT [facility] Dexamethasone 6 mg 06/05/21 10:00 Dexamethasone 4 Mg/Ml Vial IV 06/13/21 10:01 DAILY ROMA Famotidine 20 mg 06/05/21 10:00 Famotidine 20 Mg Tab PO BID ROMA Guaifenesin 200 mg 06/05/21 01:44 Guaifenesin 100 Mg/5 Ml Oral Liqd PO Q6HR PRN Cough Heparin Sodium (Porcine) 5,000 unit 06/05/21 06:00 06/05/21 05:45 Heparin 5,000 Unit/1 Ml Vial SUB-Q 5,000 unit Q8HR ROMA Administration Hydralazine HCl 10 mg 06/05/21 01:44 Hydralazine 20 Mg/1 Ml Inj IV Q6H PRN Blood Pressure Hydromorphone HCl 0.5 mg 06/05/21 01:41 Hydromorphone 1 Mg/1 Ml Inj IV Q3H PRN Pain , Severe (7-10) Levofloxacin/Dextrose 750 mg in 150 mls @ 100 mls/hr 06/05/21 18:00 Levaquin 750mg/150ml IV Q24H ROMA Morphine Sulfate 2 mg 06/05/21 01:41 Morphine 2 Mg/1 Ml Inj IV Q4H PRN Pain, Moderate (4-6) Ondansetron HCl 4 mg 06/05/21 01:41 Ondansetron 4 Mg/2 Ml Inj IV Q8H PRN Nausea And Vomiting Sodium Chloride 10 ml 06/05/21 10:00 Sodium Chloride 0.9% 10 Ml Flush Syringe IV BID ROMA Sodium Chloride 10 ml 06/05/21 01:41 Sodium Chloride 0.9% 10 Ml Flush Syringe IV PRN PRN LINE FLUSH
[2021-06-05] MEDS: IPRATROPIUM/ALBUTEROL SULFATE 3 ML AMPUL.NEB IH SCH ×4 (10:35→21:02)
[2021-06-05] MEDS: ARFORMOTEROL 15 MCG/2 ML NEBU IH SCH ×2 (10:35→20:48)
[2021-06-05] MEDS: BUDESONIDE 0.5 MG/2 ML NEBU IH SCH ×2 (10:35→20:48)
[2021-06-05] MEDS: dexAMETHasone 4 MG/ML VIAL IV SCH (11:55)
[2021-06-05] MEDS: FAMOTIDINE 20 MG TAB PO SCH ×2 (11:56→22:46)
[2021-06-05] MEDS ORDERED: REMDESIVIR 200 MG in SODIUM CHLORIDE 0.9% 250ML 250 ML IV ONE (17:46)
--- NOTE | 2021-06-05 17:46 | Event Note ---
Date: 06/05/21 [place] PCR test is positive Hypoxemic with supplemental oxygen of 5 L via nasal cannula Continue dexamethasone, will add remdesivir Follow ID and pulmonary evaluation recommendations Inflammatory markers, prone positioning Home O2 evaluation prior to discharge Plan of care reviewed with the patient and her nurse
[2021-06-05 20:27] LABS: Alanine Aminotransferase 28 units/L (7-56); Albumin 3.5 g/dL (3.9-5); Blood Urea Nitrogen 8 mg/dL (7-17); Calcium 8.6 mg/dL (8.4-10.2); Hemolysis Index 26
[2021-06-05 20:29] LABS: BUN/Creatinine Ratio 13
--- NOTE | 2021-06-05 20:37 | Event Note ---
Date: 06/05/21 Patient was not in the room when I came by dany. Will f/u on 06/06/2021.
[2021-06-05] MEDS ORDERED: SODIUM CHLORIDE 0.9% 50 ML IVPB IV SCH (21:00)
[2021-06-05] MEDS: ACETAMINOPHEN 325 MG TAB PO PRN (22:45)
[2021-06-05] MEDS: guaiFENesin 100 MG/5 ML ORAL LIQD PO PRN (22:50)
[2021-06-06] MEDS: IPRATROPIUM/ALBUTEROL SULFATE 3 ML AMPUL.NEB IH SCH ×4 (03:01→21:44)
[2021-06-06] MEDS: HEPARIN 5,000 UNIT/1 ML VIAL SUB-Q SCH ×3 (05:31→21:34)
[2021-06-06] MEDS: guaiFENesin 100 MG/5 ML ORAL LIQD PO PRN ×2 (05:32→22:35)
[2021-06-06 07:56] LABS: Hematocrit 42.2 % (30.3-42.9); Hemoglobin 13.3 gm/dl (10.1-14.3); Mean Corpuscular HGB Conc 32 % (30-34); Mean Corpuscular Volume 84 fl (79-97); Platelet Count 232 K/mm3 (140-440); Red Blood Count 5.02 M/mm3 (3.65-5.03); Red Cell Distribution Width 16.8 % (13.2-15.2)
[2021-06-06 08:14] LABS: Alanine Aminotransferase 25 units/L (7-56); Albumin 3.5 g/dL (3.9-5); Blood Urea Nitrogen 8 mg/dL (7-17); Calcium 9.1 mg/dL (8.4-10.2); Hemolysis Index 2
[2021-06-06 08:17] LABS: BUN/Creatinine Ratio 16
--- NOTE | 2021-06-06 08:23 | Progress Note ---
Assessment and Plan Assessment and plan: Patient refused first dose of remdesivir yesterday -- COVID-19 virus infection/positive nash PCR 06/05/2021 Current Visit: Yes Status: Acute Contact and droplet isolation Patient is requiring 3 to 5 L of nasal cannula oxygen Inflammatory markers, ID consulted Dexamethasone 6 mg IV daily. Remdesivir per protocol Prone positioning, home O2 evaluation prior to discharge Follow ID and pulmonary recommendations --Acute hypoxic respiratory failure on3- 5 L nasal cannula oxygen Current Visit: No Status: Acute Oxygen via nasal cannula music agent pulmonate DuoNeb by nebulizer every 4 hours. Dexamethasone 6 mg IV daily. Remdesivir Started remdesivir , patient refused --Acute exacerbation of bronchial asthma Current Visit: Yes Status: Acute Oxygen via nasal cannula titrate O2 sats to more than 90% DuoNeb IV steroids Dexamethasone 6 mg IV daily. IV antibiotics --Multifocal pneumonia/CAP versus Covid pneumonia Current Visit: Yes Status: Acute Continue empiric antibiotics IV Levaquin, Follow cultures Procalcitonin level pending, if normal levels may DC empiric antibiotics --Morbid obesity with BMI of 40.0-44.9, adult Current Visit: No Status: Acute We will counseled the patient regarding weight reduction. Diet modification exercise as tolerated and weight reduction When medically stable --Possible obstructive sleep apnea; Current Visit: No Status: Chronic Patient needs outpatient sleep study to rule out ZAID CPAP BiPAP at night if needed --DVT prophylaxis Current Visit: No Status: Acute Heparin 5000 units subcu every 8 hours for DVT prophylaxis. Pepcid 20 mg p.o.twice daily for GI prophylaxis. Patient is a full code --full CODE STATUS Will closely monitor patient and adjust management as needed Plan of care reviewed with the patient and her nurse Follow consultants evaluation recommendations Continue contact and droplet isolation Plan of care reviewed with patient and her nurse History Interval history: I have seen and examined the patient at the bedside Patient's chart and medications reviewed Morbidly obese, BMI 43.9, shortness of breath with supplemental oxygen In mild distress Hospitalist Physical - Constitutional Vitals: Temp Pulse Resp BP Pulse Ox 97.5 F L 92 H 16 111/63 99 06/06/21 06:40 06/06/21 06:40 06/06/21 06:40 06/06/21 07:21 06/06/21 07:21 General appearance: Present: no acute distress, well-nourished, obese (Morbidly obese) - EENT Eyes: Present: PERRL, EOM intact - Neck Neck: Present: supple, normal ROM - Respiratory Respiratory effort: normal Respiratory: bilateral: diminished, rhonchi, negative: rales, wheezing - Cardiovascular Rhythm: regular Heart Sounds: Present: S1 & S2 - Extremities Extremities: no ischemia, No edema - Abdominal General gastrointestinal: soft, non-tender, non-distended, normal bowel sounds - Integumentary Integumentary: Present: clear - Psychiatric Psychiatric: appropriate mood/affect, cooperative - Neurologic Neurologic: moves all extremities Results - Labs CBC & Chem 7: 06/06/21 07:12 06/06/21 07:12 Labs: Laboratory Last Values WBC 8.2 K/mm3 (4.5-11.0) 06/06/21 07:12 RBC 5.02 M/mm3 (3.65-5.03) 06/06/21 07:12 Hgb 13.3 gm/dl (10.1-14.3) 06/06/21 07:12 Hct 42.2 % (30.3-42.9) 06/06/21 07:12 MCV 84 fl (79-97) 06/06/21 07:12 MCH 27 pg (28-32) L 06/06/21 07:12 MCHC 32 % (30-34) 06/06/21 07:12 RDW 16.8 % (13.2-15.2) H 06/06/21 07:12 Plt Count 232 K/mm3 (140-440) 06/06/21 07:12 Lymph % (Auto) 23.9 % (13.4-35.0) 06/04/21 22:40 Beckham % (Auto) 3.6 % (0.0-7.3) 06/04/21 22:40 Eos % (Auto) 0.6 % (0.0-4.3) 06/04/21 22:40 Baso % (Auto) 0.5 % (0.0-1.8) 06/04/21 22:40 Lymph # (Auto) 1.2 K/mm3 (1.2-5.4) 06/04/21 22:40 Beckham # (Auto) 0.2 K/mm3 (0.0-0.8) 06/04/21 22:40 Eos # (Auto) 0.0 K/mm3 (0.0-0.4) 06/04/21 22:40 Baso # (Auto) 0.0 K/mm3 (0.0-0.1) 06/04/21 22:40 Seg Neutrophils % 71.4 % (40.0-70.0) H 06/04/21 22:40 Seg Neutrophils # 3.4 K/mm3 (1.8-7.7) 06/04/21 22:40 D-Dimer 440.91 ng/mlDDU (0-234) H 06/04/21 22:40 Sodium 138 mmol/L (137-145) 06/06/21 07:12 Potassium 4.3 mmol/L (3.6-5.0) 06/06/21 07:12 Chloride 100.4 mmol/L (98-107) 06/06/21 07:12 Carbon Dioxide 25 mmol/L (22-30) 06/06/21 07:12 Anion Gap 17 mmol/L 06/06/21 07:12 BUN 8 mg/dL (7-17) 06/06/21 07:12 Creatinine 0.5 mg/dL (0.6-1.2) L 06/06/21 07:12 Estimated GFR > 60 ml/min 06/06/21 07:12 BUN/Creatinine Ratio 16 % 06/06/21 07:12 Glucose 159 mg/dL (65-100) H 06/06/21 07:12 Lactic Acid 1.10 mmol/L (0.7-2.0) 06/05/21 04:58 Calcium 9.1 mg/dL (8.4-10.2) 06/06/21 07:12 Ferritin 86.7 ng/mL (10.0-200.0) 06/04/21 22:40 Total Bilirubin < 0.20 mg/dL (0.1-1.2) 06/06/21 07:12 AST 19 units/L (5-40) 06/06/21 07:12 ALT 25 units/L (7-56) 06/06/21 07:12 Alkaline Phosphatase 58 units/L (35-129) 06/06/21 07:12 Lactate Dehydrogenase 963 units/L (91-180) H 06/04/21 22:40 C-Reactive Protein 2.60 mg/dL (0.00-1.30) H 06/04/21 22:40 Total Protein 6.4 g/dL (6.3-8.2) 06/06/21 07:12 Albumin 3.5 g/dL (3.9-5) L 06/06/21 07:12 Albumin/Globulin Ratio 1.2 % 06/06/21 07:12 HCG, Qual Negative (Negative) 06/05/21 00:44 Coronavirus (PCR) Positive (Negative) A 06/05/21 09:17 Microbiology: Microbiology 06/04/21 23:05 Peripheral/Venous Blood Culture - Preliminary NO GROWTH AFTER 24 HOURS 06/04/21 23:18 Peripheral/Venous Blood Culture - Preliminary NO GROWTH AFTER 24 HOURS Jose/IV: Voiding Method Toilet Active Medications - Current Medications Current Medications: Generic Name Dose Route Start Last Admin Trade Name Freq PRN Reason Stop Dose Admin Acetaminophen 650 mg 06/05/21 01:41 06/05/21 22:45 Acetaminophen 325 Mg Tab PO 650 mg Q4H PRN Administration Pain MILD(1-3)/Fever >100.5/VILLALOBOS Albuterol 2.5 mg 06/05/21 01:41 Albuterol 2.5 Mg/3 Ml Nebu IH Q4HRT PRN Shortness Of Breath Albuterol 2 puff 06/05/21 01:44 Albuterol 8.5 Gm Mdi Inhalation IH QID PRN Shortness Of Breath Albuterol/Ipratropium 1 ampul 06/05/21 02:00 06/06/21 03:01 Ipratropium/Albuterol Sulfate 3 Ml Ampul.Neb IH Not Given Q6HRT [facility] Arformoterol Tartrate 15 mcg 06/05/21 08:00 06/05/21 20:48 Arformoterol 15 Mcg/2 Ml Nebu IH Not Given Q12HRT [facility] Budesonide 0.5 mg 06/05/21 08:00 06/05/21 20:48 Budesonide 0.5 Mg/2 Ml Nebu IH Not Given Q12HRT [facility] Dexamethasone 6 mg 06/05/21 10:00 06/05/21 11:55 Dexamethasone 4 Mg/Ml Vial IV 06/13/21 10:01 6 mg DAILY ROMA Administration Famotidine 20 mg 06/05/21 10:00 06/05/21 22:46 Famotidine 20 Mg Tab PO 20 mg BID [facility] Administration Guaifenesin 200 mg 06/05/21 01:44 06/06/21 05:32 Guaifenesin 100 Mg/5 Ml Oral Liqd PO 200 mg Q6HR PRN Administration Cough Heparin Sodium (Porcine) 5,000 unit 06/05/21 06:00 06/06/21 05:31 Heparin 5,000 Unit/1 Ml Vial SUB-Q 5,000 unit Q8HR [facility] Administration Hydralazine HCl 10 mg 06/05/21 01:44 Hydralazine 20 Mg/1 Ml Inj IV Q6H PRN Blood Pressure Hydromorphone HCl 0.5 mg 06/05/21 01:41 Hydromorphone 1 Mg/1 Ml Inj IV Q3H PRN Pain , Severe (7-10) Levofloxacin/Dextrose 750 mg in 150 mls @ 100 mls/hr 06/05/21 18:00 06/05/21 18:31 Levaquin 750mg/150ml IV 100 mls/hr Q24H [facility] Administration REMDESIVIR 100 mg/ Sodium 250 mls @ 500 mls/hr 06/06/21 21:00 Chloride IV 06/09/21 21:29 Q24HR@2100 [facility] Morphine Sulfate 2 mg 06/05/21 01:41 Morphine 2 Mg/1 Ml Inj IV Q4H PRN Pain, Moderate (4-6) Ondansetron HCl 4 mg 06/05/21 01:41 Ondansetron 4 Mg/2 Ml Inj IV Q8H PRN Nausea And Vomiting Sodium Chloride 10 ml 06/05/21 10:00 06/05/21 22:48 Sodium Chloride 0.9% 10 Ml Flush Syringe IV 10 ml BID [facility]A Administration Sodium Chloride 10 ml 06/05/21 01:41 Sodium Chloride 0.9% 10 Ml Flush Syringe IV PRN PRN LINE FLUSH Sodium Chloride 50 ml 06/05/21 21:00 06/05/21 22:47 Sodium Chloride 0.9% 50 Ml Ivpb IV 06/09/21 21:01 50 ml Q24HR@2100 [facility] Administration
[2021-06-06 09:32] LABS: Total Cells Counted 100
[2021-06-06 09:33] LABS: Platelet Estimate Consistent w Auto; RBC Morphology Normal
[2021-06-06] MEDS: ARFORMOTEROL 15 MCG/2 ML NEBU IH SCH (10:06)
[2021-06-06] MEDS: BUDESONIDE 0.5 MG/2 ML NEBU IH SCH (10:06)
[2021-06-06] MEDS: FAMOTIDINE 20 MG TAB PO SCH ×2 (10:29→21:34)
[2021-06-06] MEDS: dexAMETHasone 4 MG/ML VIAL IV SCH (10:29)
[2021-06-06 11:42] LABS: C-Reactive Protein 0.8 mg/dL (0.00-1.30)
--- NOTE | 2021-06-06 12:27 | Consultation ---
History of Present Illness Consult date: 06/06/21 History of present illness: 46 y/o morbidly obese female with acute respiratory failure secondary to COVID 19 infection. CTA negative for PE but shows bilateral upper lobe predominant GGO's with dense consolidation in right middle lobe. Per history, patient has a history of asthma as well. Pulmonary consulted secondary to hypoxemia. Past History Past Medical History: other (Asthma heart murmur) Medications and Allergies Allergies Allergy/AdvReac Type Severity Reaction Status Date / Time amoxicillin trihydrate Allergy Rash Verified 03/31/21 15:32 [From Augmentin] codeine Allergy Rash Verified 03/31/21 15:32 erythromycin base Allergy Rash Verified 03/31/21 15:32 potassium clavulanate Allergy Rash Verified 03/31/21 15:32 [From Augmentin] Sulfa (Sulfonamide Allergy Rash Verified 03/31/21 15:32 Antibiotics) Home Medications Medication Instructions Recorded Confirmed Last Taken Type ALBUTEROL NEB's [Proventil 0.083% 2.5 mg IH TID PRN 30 Days #1 box 04/01/21 06/06/21 06/05/21 20:00 Rx NEBS] Albuterol Mdi (or & Nicu Only) 2 puff IH QID PRN 30 Days #1 each 04/01/21 06/06/21 06/04/21 21:00 Rx [ProAir HFA Inhaler] Budesonide/Formoterol Fumarate 10.2 gm IH BID 30 Days #3 04/01/21 06/06/21 Unknown Rx [Symbicort 80-4.5 Mcg Inhaler] hfa.aer.ad Prednisone [predniSONE 10 mg 10 mg PO .TAPER #1 tab.ds.pk 04/01/21 06/06/21 Unknown Rx (6-Day Pack, 21 Tabs)] guaiFENesin [Robitussin] 200 mg PO Q6HR PRN #1 oral.liqd 04/01/21 06/06/21 06/04/21 20:35 Rx Active Meds: Active Medications Acetaminophen (Acetaminophen 325 Mg Tab) 650 mg PO Q4H PRN PRN Reason: Pain MILD(1-3)/Fever >100.5/VILLALOBOS Last Admin: 06/05/21 22:45 Dose: 650 mg Documented by: Albuterol (Albuterol 8.5 Gm Mdi Inhalation) 2 puff IH QID PRN PRN Reason: Shortness Of Breath Albuterol/Ipratropium (Ipratropium/Albuterol Sulfate 3 Ml Ampul.Neb) 1 ampul IH Q6HRT [facility] Last Admin: 06/06/21 10:06 Dose: 1 ampul Documented by: Dexamethasone (Dexamethasone 4 Mg/Ml Vial) 6 mg IV DAILY [facility] Stop: 06/13/21 10:01 Last Admin: 06/06/21 10:29 Dose: 6 mg Documented by: Famotidine (Famotidine 20 Mg Tab) 20 mg PO BID [facility] Last Admin: 06/06/21 10:29 Dose: 20 mg Documented by: Guaifenesin (Guaifenesin 100 Mg/5 Ml Oral Liqd) 200 mg PO Q6HR PRN PRN Reason: Cough Last Admin: 06/06/21 05:32 Dose: 200 mg Documented by: Heparin Sodium (Porcine) (Heparin 5,000 Unit/1 Ml Vial) 5,000 unit SUB-Q Q8HR [facility] Last Admin: 06/06/21 05:31 Dose: 5,000 unit Documented by: Hydralazine HCl (Hydralazine 20 Mg/1 Ml Inj) 10 mg IV Q6H PRN PRN Reason: Blood Pressure Hydromorphone HCl (Hydromorphone 1 Mg/1 Ml Inj) 0.5 mg IV Q3H PRN PRN Reason: Pain , Severe (7-10) Levofloxacin/Dextrose (Levaquin 750mg/150ml) 750 mg in 150 mls @ 100 mls/hr IV Q24H [facility] Last Admin: 06/05/21 18:31 Dose: 100 mls/hr Documented by: REMDESIVIR 100 mg/ Sodium (Chloride) 250 mls @ 500 mls/hr IV Q24HR@2100 [facility] Stop: 06/09/21 21:29 Morphine Sulfate (Morphine 2 Mg/1 Ml Inj) 2 mg IV Q4H PRN PRN Reason: Pain, Moderate (4-6) Ondansetron HCl (Ondansetron 4 Mg/2 Ml Inj) 4 mg IV Q8H PRN PRN Reason: Nausea And Vomiting Sodium Chloride (Sodium Chloride 0.9% 10 Ml Flush Syringe) 10 ml IV BID [facility] Last Admin: 06/06/21 10:29 Dose: 10 ml Documented by: Sodium Chloride (Sodium Chloride 0.9% 10 Ml Flush Syringe) 10 ml IV PRN PRN PRN Reason: LINE FLUSH Sodium Chloride (Sodium Chloride 0.9% 50 Ml Ivpb) 50 ml IV Q24HR@2100 [facility] Stop: 06/09/21 21:01 Last Admin: 06/05/21 22:47 Dose: 50 ml Documented by: Physical Examination Vital signs: Vital Signs Temp Pulse Resp BP Pulse Ox 101.7 F H 101 H 23 141/100 94 06/04/21 21:55 06/04/21 21:55 06/04/21 21:55 06/04/21 21:55 06/04/21 21:55 Results - Laboratory Findings CBC and BMP: 06/06/21 07:12 06/06/21 07:12 PT/INR, D-dimer D-Dimer 262.74 ng/mlDDU (0-234) H 06/06/21 11:08 Abnormal lab findings: Abnormal Labs 06/04/21 06/04/21 06/04/21 22:40 22:40 22:40 MCH 26 L RDW 17.2 H Seg Neutrophils % 71.4 H Seg Neuts % (Manual) Lymphocytes % (Manual) Lymphocytes # (Manual) D-Dimer 440.91 H Sodium Chloride BUN 6 L Creatinine 0.5 L Glucose Calcium 8.1 L AST 91 H Lactate Dehydrogenase 963 H C-Reactive Protein 2.60 H Albumin 3.1 L Coronavirus (PCR) 06/05/21 06/05/21 06/06/21 09:17 19:57 07:12 MCH 27 L RDW 16.8 H Seg Neutrophils % Seg Neuts % (Manual) 88.0 H Lymphocytes % (Manual) 7.0 L Lymphocytes # (Manual) 0.6 L D-Dimer Sodium 136 L Chloride 97.5 L BUN Creatinine Glucose 200 H Calcium AST Lactate Dehydrogenase C-Reactive Protein Albumin 3.5 L Coronavirus (PCR) Positive A 06/06/21 06/06/21 06/06/21 07:12 11:08 11:08 MCH RDW Seg Neutrophils % Seg Neuts % (Manual) Lymphocytes % (Manual) Lymphocytes # (Manual) D-Dimer 262.74 H Sodium Chloride BUN Creatinine 0.5 L Glucose 159 H Calcium AST Lactate Dehydrogenase 332 H C-Reactive Protein Albumin 3.5 L Coronavirus (PCR) - Diagnostic Findings Chest x-ray: image reviewed CT scan - chest: image reviewed Assessment and Plan 46 y/o female with acute respiratory failure secondary to COVID 19, morbidly obe se and asthma exacerbation. 1. Steroids for at least 10 days, may need higher dosing given body habitus. Suggest at least BID 2. Stopped nebulizers given COVID infection, please ask patient if family can bring in her Symbicort as we do not have long acting puffers on Formulary 3. Daily net negative fluid balance 4. Prone as tolerated during the day and sleep prone at night Guarded prognosis.
[2021-06-06] MEDS ORDERED: REMDESIVIR 200 MG in SODIUM CHLORIDE 0.9% 250ML 250 ML IV ONE (13:00)
[2021-06-06] MEDS ORDERED: SODIUM CHLORIDE 0.9% 50 ML IVPB IV ONE (13:00)
--- NOTE | 2021-06-06 15:25 | Consultation ---
History of Present Illness - Reason for Consult Consult date: 06/06/21 - History of Present Illness 46-year-old female past medical history asthma presented to hospital complaining of typical Covid symptoms. She noted that her tested positive as an outpatient previously. She is unvaccinated against Covid. Her illness began approximate 5 days prior to admission has been worsening since onset. She is found to hypoxic on presentation. Febrile to 1-1.7 with a white count of 8.2. Covid positive. Normal renal function. CRP now normal. Pending procalcitonin. Currently on Levaquin and steroids. With Remdesivir. Currently on 5 L nasal cannula. Imaging personally reviewed: Chest ETA: No evidence: Embolism. Multiple bilateral groundglass opacities bilaterally. Review of systems: Deferred to reduce to the risk of transmission of COVID-19 Past History Past Medical History: other (Asthma heart murmur) Past Surgical History: No surgical history Social history: no significant social history Family history: no significant family history Medications and Allergies Allergies Allergy/AdvReac Type Severity Reaction Status Date / Time amoxicillin trihydrate Allergy Rash Verified 03/31/21 15:32 [From Augmentin] codeine Allergy Rash Verified 03/31/21 15:32 erythromycin base Allergy Rash Verified 03/31/21 15:32 potassium clavulanate Allergy Rash Verified 03/31/21 15:32 [From Augmentin] Sulfa (Sulfonamide Allergy Rash Verified 03/31/21 15:32 Antibiotics) Home Medications Medication Instructions Recorded Confirmed Last Taken Type ALBUTEROL NEB's [Proventil 0.083% 2.5 mg IH TID PRN 30 Days #1 box 04/01/21 06/06/21 06/05/21 20:00 Rx NEBS] Albuterol Mdi (or & Nicu Only) 2 puff IH QID PRN 30 Days #1 each 04/01/21 06/06/21 06/04/21 21:00 Rx [ProAir HFA Inhaler] Budesonide/Formoterol Fumarate 10.2 gm IH BID 30 Days #3 04/01/21 06/06/21 Unknown Rx [Symbicort 80-4.5 Mcg Inhaler] hfa.aer.ad Prednisone [predniSONE 10 mg 10 mg PO .TAPER #1 tab.ds.pk 04/01/21 06/06/21 Unknown Rx (6-Day Pack, 21 Tabs)] guaiFENesin [Robitussin] 200 mg PO Q6HR PRN #1 oral.liqd 04/01/21 06/06/21 06/04/21 20:35 Rx Active Meds: Active Medications Acetaminophen (Acetaminophen 325 Mg Tab) 650 mg PO Q4H PRN PRN Reason: Pain MILD(1-3)/Fever >100.5/VILLALOBOS Last Admin: 06/05/21 22:45 Dose: 650 mg Documented by: Albuterol (Albuterol 8.5 Gm Mdi Inhalation) 2 puff IH QID PRN PRN Reason: Shortness Of Breath Albuterol/Ipratropium (Ipratropium/Albuterol Sulfate 3 Ml Ampul.Neb) 1 ampul IH Q6HRT [facility] Last Admin: 06/06/21 10:06 Dose: 1 ampul Documented by: Dexamethasone (Dexamethasone 4 Mg/Ml Vial) 6 mg IV DAILY [facility] Stop: 06/13/21 10:01 Last Admin: 06/06/21 10:29 Dose: 6 mg Documented by: Famotidine (Famotidine 20 Mg Tab) 20 mg PO BID [facility] Last Admin: 06/06/21 10:29 Dose: 20 mg Documented by: Guaifenesin (Guaifenesin 100 Mg/5 Ml Oral Liqd) 200 mg PO Q6HR PRN PRN Reason: Cough Last Admin: 06/06/21 05:32 Dose: 200 mg Documented by: Heparin Sodium (Porcine) (Heparin 5,000 Unit/1 Ml Vial) 5,000 unit SUB-Q Q8HR [facility] Last Admin: 06/06/21 13:03 Dose: 5,000 unit Documented by: Hydralazine HCl (Hydralazine 20 Mg/1 Ml Inj) 10 mg IV Q6H PRN PRN Reason: Blood Pressure Hydromorphone HCl (Hydromorphone 1 Mg/1 Ml Inj) 0.5 mg IV Q3H PRN PRN Reason: Pain , Severe (7-10) Levofloxacin/Dextrose (Levaquin 750mg/150ml) 750 mg in 150 mls @ 100 mls/hr IV Q24H [facility] Last Admin: 06/05/21 18:31 Dose: 100 mls/hr Documented by: REMDESIVIR 100 mg/ Sodium (Chloride) 250 mls @ 500 mls/hr IV Q24HR@2100 [facility] Stop: 06/09/21 21:29 Morphine Sulfate (Morphine 2 Mg/1 Ml Inj) 2 mg IV Q4H PRN PRN Reason: Pain, Moderate (4-6) Ondansetron HCl (Ondansetron 4 Mg/2 Ml Inj) 4 mg IV Q8H PRN PRN Reason: Nausea And Vomiting Sodium Chloride (Sodium Chloride 0.9% 10 Ml Flush Syringe) 10 ml IV BID [facility] Last Admin: 06/06/21 10:29 Dose: 10 ml Documented by: Sodium Chloride (Sodium Chloride 0.9% 10 Ml Flush Syringe) 10 ml IV PRN PRN PRN Reason: LINE FLUSH Sodium Chloride (Sodium Chloride 0.9% 50 Ml Ivpb) 50 ml IV Q24HR@2100 [facility] Stop: 06/09/21 21:01 Physical Examination - Physical Exam Narrative exam: Physical exam deferred to reduce risk of transmission of COVID-19. Please refer to primary team's note. - Constitutional Vitals: Vital Signs Temp Pulse Resp BP Pulse Ox 97.9 F 96 H 24 178/88 98 06/06/21 11:18 06/06/21 11:18 06/06/21 11:18 06/06/21 13:41 06/06/21 13:41 Temperature -Last 24 Hours Temperature 97.9 F Temperature 97.5 F Temperature 98.1 F Temperature 98.9 F Results - Labs CBC & Chem 7: 06/06/21 07:12 06/06/21 07:12 Labs: Abnormal lab results 06/05/21 06/05/21 06/06/21 Range/Units 09:17 19:57 07:12 MCH 27 L (28-32) pg RDW 16.8 H (13.2-15.2) % Seg Neuts % (Manual) 88.0 H (40.0-70.0) % Lymphocytes % (Manual) 7.0 L (13.4-35.0) % Lymphocytes # (Manual) 0.6 L (1.2-5.4) K/mm3 D-Dimer (0-234) ng/mlDDU Sodium 136 L (137-145) mmol/L Chloride 97.5 L (98-107) mmol/L Creatinine (0.6-1.2) mg/dL Glucose 200 H (65-100) mg/dL Lactate Dehydrogenase (91-180) units/L Albumin 3.5 L (3.9-5) g/dL Coronavirus (PCR) Positive A (Negative) 06/06/21 06/06/21 06/06/21 Range/Units 07:12 11:08 11:08 MCH (28-32) pg RDW (13.2-15.2) % Seg Neuts % (Manual) (40.0-70.0) % Lymphocytes % (Manual) (13.4-35.0) % Lymphocytes # (Manual) (1.2-5.4) K/mm3 D-Dimer 262.74 H (0-234) ng/mlDDU Sodium (137-145) mmol/L Chloride (98-107) mmol/L Creatinine 0.5 L (0.6-1.2) mg/dL Glucose 159 H (65-100) mg/dL Lactate Dehydrogenase 332 H (91-180) units/L Albumin 3.5 L (3.9-5) g/dL Coronavirus (PCR) (Negative) Assessment and Plan Cultures: Blood culture no growth so far COVID-19 PCR: Positive A/P: 46-year-old female past medical history morbid obesity, asthma presented to hospital with: #Severe COVID-19 pneumonia: Patient presented with a week of symptoms, chest x- ray with diffuse bilateral infiltrates, admission O2 sats on room air. Inflammatory markers elevated #Acute hypoxemic respiratory failure: Likely secondary to COVID-19 infection. Currently on 5 L cannula #Morbid obesity Recommendations: -Steroids for 10 days -Remdesivir 200 mg IV q day x 1 followed by 100 mg IV q day x 4 days -Obtain q48-72h inflammatory markers - ferritin, Ddimer, CRP, LDH -Continue ceftriaxone 2 gm IV qday and azithromycin 500 mg PO qday, if procalcitonin <0.25 ng/mL stop antibiotics -Anticoagulation per hospital protocol -Proning as able Thank you for the consult, we will continue to follow. MD Dorie [facility] O: [phone] F: [phone]
[2021-06-06] MEDS: REMDESIVIR 100 MG in SODIUM CHLORIDE 0.9% 250ML 250 ML IV SCH (21:33)
[2021-06-06] MEDS: SODIUM CHLORIDE 0.9% 50 ML IVPB IV SCH (21:34)
[2021-06-06] MEDS: ACETAMINOPHEN 325 MG TAB PO PRN (22:34)
--- NOTE | 2021-06-06 23:24 | Progress Note ---
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 Dexamethasone 6 mg IV daily. Remdesivir Started remdesivir , patient refused --Acute exacerbation of bronchial asthma Current Visit: Yes Status: Acute Oxygen via nasal cannula titrate O2 sats to more than 90% DuoNeb IV steroids Dexamethasone 6 mg IV daily. IV antibiotics --Multifocal pneumonia/CAP versus Covid pneumonia Current Visit: Yes Status: Acute Continue empiric antibiotics IV Levaquin, Follow cultures Procalcitonin level pending, if normal levels may DC empiric antibiotics --Morbid obesity with BMI of 40.0-44.9, adult Current Visit: No Status: Acute We will counseled the patient regarding weight reduction. Diet modification exercise as tolerated and weight reduction When medically stable --Possible obstructive sleep apnea; Current Visit: No Status: Chronic Patient needs outpatient sleep study to rule out ZAID CPAP BiPAP at night if needed --DVT prophylaxis Current Visit: No Status: Acute Heparin 5000 units subcu every 8 hours for DVT prophylaxis. Pepcid 20 mg p.o.twice daily for GI prophylaxis. Patient is a full code --full CODE STATUS Will closely monitor patient and adjust management as needed Plan of care reviewed with the patient and her nurse Follow consultants evaluation recommendations Continue contact and droplet isolation Plan of care reviewed with patient and her nurse Brief history and hospital course[ 46-year-old unvaccinated female patient was admitted through the emergency room with worsening shortness of breath, acute respiratory failure and upper respiratory symptoms, Patient required supplemental oxygen, work-up is consistent with COVID-19 infection and multifocal pneumonia, ID following the patient Patient is receiving steroids, remdesivir, oxygen. Morbidly obese, may need outpatient sleep study to rule out ZAID 06/07/2021; patient feels slightly better, requiring 4 L nasal cannula oxygen On steroids and remdesivir ID following, Disposition; follow clinically, home O2 evaluation prior to discharge, discharge when stable History Interval history: I have seen and examined the patient at the bedside Patient's chart and medications reviewed No new events reported by the nursing staff Patient is requiring 5 L of supplemental oxygen via nasal cannula COVID-19 patient on steroids and remdesivir Hospitalist Physical - Constitutional Vitals: Temp Pulse Resp BP Pulse Ox 97.7 F 110 H 20 130/79 99 06/06/21 15:30 06/06/21 21:40 06/06/21 21:40 06/06/21 23:11 06/06/21 23:11 General appearance: Present: no acute distress, well-nourished, obese (Morbidly obese) - EENT Eyes: Present: PERRL, EOM intact - Neck Neck: Present: supple, normal ROM - Respiratory Respiratory effort: normal Respiratory: bilateral: diminished, negative: rales, rhonchi, wheezing - Cardiovascular Rhythm: regular Heart Sounds: Present: S1 & S2 - Extremities Extremities: no ischemia, No edema - Abdominal General gastrointestinal: soft, non-tender, non-distended, normal bowel sounds - Integumentary Integumentary: Present: clear, warm - Psychiatric Psychiatric: appropriate mood/affect, agitated - Neurologic Neurologic: moves all extremities Results - Labs CBC & Chem 7: 06/06/21 07:12 06/07/21 06:05 Labs: Laboratory Last Values WBC 8.2 K/mm3 (4.5-11.0) 06/06/21 07:12 RBC 5.02 M/mm3 (3.65-5.03) 06/06/21 07:12 Hgb 13.3 gm/dl (10.1-14.3) 06/06/21 07:12 Hct 42.2 % (30.3-42.9) 06/06/21 07:12 MCV 84 fl (79-97) 06/06/21 07:12 MCH 27 pg (28-32) L 06/06/21 07:12 MCHC 32 % (30-34) 06/06/21 07:12 RDW 16.8 % (13.2-15.2) H 06/06/21 07:12 Plt Count 232 K/mm3 (140-440) 06/06/21 07:12 Lymph % (Auto) 23.9 % (13.4-35.0) 06/04/21 22:40 [place] % (Auto) 3.6 % (0.0-7.3) 06/04/21 22:40 Eos % (Auto) 0.6 % (0.0-4.3) 06/04/21 22:40 Baso % (Auto) 0.5 % (0.0-1.8) 06/04/21 22:40 Lymph # (Auto) 1.2 K/mm3 (1.2-5.4) 06/04/21 22:40 [place] # (Auto) 0.2 K/mm3 (0.0-0.8) 06/04/21 22:40 Eos # (Auto) 0.0 K/mm3 (0.0-0.4) 06/04/21 22:40 Baso # (Auto) 0.0 K/mm3 (0.0-0.1) 06/04/21 22:40 Add Manual Diff Complete 06/06/21 07:12 Total Counted 100 06/06/21 07:12 Seg Neutrophils % 71.4 % (40.0-70.0) H 06/04/21 22:40 Seg Neuts % (Manual) 88.0 % (40.0-70.0) H 06/06/21 07:12 Lymphocytes % (Manual) 7.0 % (13.4-35.0) L 06/06/21 07:12 Monocytes % (Manual) 5.0 % (0.0-7.3) 06/06/21 07:12 Nucleated RBC % Not Reportable 06/06/21 07:12 Seg Neutrophils # 3.4 K/mm3 (1.8-7.7) 06/04/21 22:40 Seg Neutrophils # Man 7.2 K/mm3 (1.8-7.7) 06/06/21 07:12 Band Neutrophils # 0.0 K/mm3 06/06/21 07:12 Lymphocytes # (Manual) 0.6 K/mm3 (1.2-5.4) L 06/06/21 07:12 Abs React Lymphs (Man) 0.0 K/mm3 06/06/21 07:12 Monocytes # (Manual) 0.4 K/mm3 (0.0-0.8) 06/06/21 07:12 Eosinophils # (Manual) 0.0 K/mm3 (0.0-0.4) 06/06/21 07:12 Basophils # (Manual) 0.0 K/mm3 (0.0-0.1) 06/06/21 07:12 Metamyelocytes # 0.0 K/mm3 06/06/21 07:12 Myelocytes # 0.0 K/mm3 06/06/21 07:12 Promyelocytes # 0.0 K/mm3 06/06/21 07:12 Blast Cells # 0.0 K/mm3 06/06/21 07:12 WBC Morphology Not Reportable 06/06/21 07:12 Hypersegmented Neuts Not Reportable 06/06/21 07:12 Hyposegmented Neuts Not Reportable 06/06/21 07:12 Hypogranular Neuts Not Reportable 06/06/21 07:12 Smudge Cells Not Reportable 06/06/21 07:12 Toxic Granulation Not Reportable 06/06/21 07:12 Toxic Vacuolation Not Reportable 06/06/21 07:12 Dohle Bodies Not Reportable 06/06/21 07:12 Pelger-Huet Anomaly Not Reportable 06/06/21 07:12 Chandrika Rods Not Reportable 06/06/21 07:12 Platelet Estimate Consistent w auto 06/06/21 07:12 Clumped Platelets Not Reportable 06/06/21 07:12 Plt Clumps, EDTA Not Reportable 06/06/21 07:12 Large Platelets Not Reportable 06/06/21 07:12 Giant Platelets Not Reportable 06/06/21 07:12 Platelet Satelliting Not Reportable 06/06/21 07:12 Plt Morphology Comment Not Reportable 06/06/21 07:12 RBC Morphology Normal 06/06/21 07:12 Dimorphic RBCs Not Reportable 06/06/21 07:12 Polychromasia Not Reportable 06/06/21 07:12 Hypochromasia Not Reportable 06/06/21 07:12 Poikilocytosis Not Reportable 06/06/21 07:12 Anisocytosis Not Reportable 06/06/21 07:12 Microcytosis Not Reportable 06/06/21 07:12 Macrocytosis Not Reportable 06/06/21 07:12 Spherocytes Not Reportable 06/06/21 07:12 Pappenheimer Bodies Not Reportable 06/06/21 07:12 Sickle Cells Not Reportable 06/06/21 07:12 Target Cells Not Reportable 06/06/21 07:12 Tear Drop Cells Not Reportable 06/06/21 07:12 Ovalocytes Not Reportable 06/06/21 07:12 Helmet Cells Not Reportable 06/06/21 07:12 [place] Bodies Not Reportable 06/06/21 07:12 [place] Rings Not Reportable 06/06/21 07:12 [place] Cells Not Reportable 06/06/21 07:12 Bite Cells Not Reportable 06/06/21 07:12 Crenated Cell Not Reportable 06/06/21 07:12 Elliptocytes Not Reportable 06/06/21 07:12 Acanthocytes (Spur) Not Reportable 06/06/21 07:12 Rouleaux Not Reportable 06/06/21 07:12 Hemoglobin C Crystals Not Reportable 06/06/21 07:12 Schistocytes Not Reportable 06/06/21 07:12 Malaria parasites Not Reportable 06/06/21 07:12 Antony Bodies Not Reportable 06/06/21 07:12 Hem Pathologist Commnt No 06/06/21 07:12 D-Dimer 262.74 ng/mlDDU (0-234) H 06/06/21 11:08 Sodium 138 mmol/L (137-145) 06/06/21 07:12 Potassium 4.3 mmol/L (3.6-5.0) 06/06/21 07:12 Chloride 100.4 mmol/L (98-107) 06/06/21 07:12 Carbon Dioxide 25 mmol/L (22-30) 06/06/21 07:12 Anion Gap 17 mmol/L 06/06/21 07:12 BUN 8 mg/dL (7-17) 06/06/21 07:12 Creatinine 0.5 mg/dL (0.6-1.2) L 06/06/21 07:12 Estimated GFR > 60 ml/min 06/06/21 07:12 BUN/Creatinine Ratio 16 % 06/06/21 07:12 Glucose 159 mg/dL (65-100) H 06/06/21 07:12 Lactic Acid 1.10 mmol/L (0.7-2.0) 06/05/21 04:58 Calcium 9.1 mg/dL (8.4-10.2) 06/06/21 07:12 Ferritin 100.4 ng/mL (10.0-200.0) 06/06/21 11:08 Total Bilirubin < 0.20 mg/dL (0.1-1.2) 06/06/21 07:12 AST 19 units/L (5-40) 06/06/21 07:12 ALT 25 units/L (7-56) 06/06/21 07:12 Alkaline Phosphatase 58 units/L (35-129) 06/06/21 07:12 Lactate Dehydrogenase 332 units/L (91-180) H 06/06/21 11:08 C-Reactive Protein 0.80 mg/dL (0.00-1.30) 06/06/21 11:08 Total Protein 6.4 g/dL (6.3-8.2) 06/06/21 07:12 Albumin 3.5 g/dL (3.9-5) L 06/06/21 07:12 Albumin/Globulin Ratio 1.2 % 06/06/21 07:12 HCG, Qual Negative (Negative) 06/05/21 00:44 Coronavirus (PCR) Positive (Negative) A 06/05/21 09:17 Microbiology: Microbiology 06/04/21 23:05 Peripheral/Venous Blood Culture - Preliminary NO GROWTH AFTER 24 HOURS 06/04/21 23:18 Peripheral/Venous Blood Culture - Preliminary NO GROWTH AFTER 24 HOURS Jose/IV: Voiding Method Toilet Active Medications - Current Medications Current Medications: Generic Name Dose Route Start Last Admin Trade Name Freq PRN Reason Stop Dose Admin Acetaminophen 650 mg 06/05/21 01:41 06/06/21 22:34 Acetaminophen 325 Mg Tab PO 650 mg Q4H PRN Administration Pain MILD(1-3)/Fever >100.5/VILLALOBOS Albuterol 2 puff 06/05/21 01:44 Albuterol 8.5 Gm Mdi Inhalation IH QID PRN Shortness Of Breath Albuterol/Ipratropium 1 ampul 06/05/21 02:00 06/06/21 21:44 Ipratropium/Albuterol Sulfate 3 Ml Ampul.Neb IH 1 ampul Q6HRT ROMA Administration Dexamethasone 6 mg 06/05/21 10:00 06/06/21 10:29 Dexamethasone 4 Mg/Ml Vial IV 06/13/21 10:01 6 mg DAILY ROMA Administration Famotidine 20 mg 06/05/21 10:00 06/06/21 21:34 Famotidine 20 Mg Tab PO 20 mg BID ROMA Administration Guaifenesin 200 mg 06/05/21 01:44 06/06/21 22:35 Guaifenesin 100 Mg/5 Ml Oral Liqd PO 200 mg Q6HR PRN Administration Cough Heparin Sodium (Porcine) 5,000 unit 06/05/21 06:00 06/06/21 21:34 Heparin 5,000 Unit/1 Ml Vial SUB-Q 5,000 unit Q8HR ROMA Administration Hydralazine HCl 10 mg 06/05/21 01:44 Hydralazine 20 Mg/1 Ml Inj IV Q6H PRN Blood Pressure Hydromorphone HCl 0.5 mg 06/05/21 01:41 Hydromorphone 1 Mg/1 Ml Inj IV Q3H PRN Pain , Severe (7-10) Levofloxacin/Dextrose 750 mg in 150 mls @ 100 mls/hr 06/05/21 18:00 06/06/21 19:38 Levaquin 750mg/150ml IV 100 mls/hr Q24H ROMA Administration REMDESIVIR 100 mg/ Sodium 250 mls @ 500 mls/hr 06/06/21 21:00 06/06/21 21:33 Chloride IV 06/09/21 21:29 500 mls/hr Q24HR@2100 ROMA Administration Morphine Sulfate 2 mg 06/05/21 01:41 Morphine 2 Mg/1 Ml Inj IV Q4H PRN Pain, Moderate (4-6) Ondansetron HCl 4 mg 06/05/21 01:41 Ondansetron 4 Mg/2 Ml Inj IV Q8H PRN Nausea And Vomiting Sodium Chloride 10 ml 06/05/21 10:00 06/06/21 21:34 Sodium Chloride 0.9% 10 Ml Flush Syringe IV 10 ml BID ROMA Administration Sodium Chloride 10 ml 06/05/21 01:41 Sodium Chloride 0.9% 10 Ml Flush Syringe IV PRN PRN LINE FLUSH Sodium Chloride 50 ml 06/06/21 21:00 06/06/21 21:34 Sodium Chloride 0.9% 50 Ml Ivpb IV 06/09/21 21:01 50 ml Q24HR@2100 ROMA Administration
[2021-06-07] MEDS: IPRATROPIUM/ALBUTEROL SULFATE 3 ML AMPUL.NEB IH SCH ×3 (04:24→21:14)
[2021-06-07] MEDS: HEPARIN 5,000 UNIT/1 ML VIAL SUB-Q SCH ×3 (05:13→23:18)
[2021-06-07 07:06] LABS: Alanine Aminotransferase 23 units/L (7-56); Albumin 3.4 g/dL (3.9-5); Blood Urea Nitrogen 14 mg/dL (7-17); Calcium 8.6 mg/dL (8.4-10.2); Hemolysis Index 1
[2021-06-07 07:08] LABS: BUN/Creatinine Ratio 23
--- NOTE | 2021-06-07 09:27 | Progress Note ---
Assessment and Plan 46 y/o female with acute respiratory failure secondary to COVID 19, morbidly obese and asthma exacerbation. 06/07/21: No new recs for today, please see below. 1. Steroids for at least 10 days, may need higher dosing given body habitus. Suggest at least BID 2. Stopped nebulizers given COVID infection, please ask patient if family can bring in her Symbicort as we do not have long acting puffers on Formulary 3. Daily net negative fluid balance 4. Prone as tolerated during the day and sleep prone at night Guarded prognosis. Subjective Date of service: 06/07/21 Interval history: No acute events. Down to 4 liters. No documentation of proning. started on Remdesivir. Objective Vital Signs - 12hr 06/06/21 06/06/21 06/06/21 21:31 21:40 21:41 Temperature Pulse Rate Pulse Rate [ 110 H Anterior Bilateral Throughout] Pulse Rate [ 110 H Posterior Bilateral Bases ] Respiratory Rate Respiratory 20 Rate [Anterior Bilateral Throughout] Respiratory 20 Rate [Posterior Bilateral Bases] Blood Pressure 169/112 169/112 Blood Pressure [Right] O2 Sat by Pulse 97 97 97 Oximetry 06/06/21 06/06/21 06/06/21 21:51 22:00 22:01 Temperature Pulse Rate Pulse Rate [ Anterior Bilateral Throughout] Pulse Rate [ Posterior Bilateral Bases ] Respiratory Rate Respiratory Rate [Anterior Bilateral Throughout] Respiratory Rate [Posterior Bilateral Bases] Blood Pressure 169/112 169/112 Blood Pressure [Right] O2 Sat by Pulse 96 97 96 Oximetry 06/06/21 06/06/21 06/06/21 22:11 22:21 22:31 Temperature Pulse Rate Pulse Rate [ Anterior Bilateral Throughout] Pulse Rate [ Posterior Bilateral Bases ] Respiratory Rate Respiratory Rate [Anterior Bilateral Throughout] Respiratory Rate [Posterior Bilateral Bases] Blood Pressure 169/112 169/112 169/112 Blood Pressure [Right] O2 Sat by Pulse 98 98 99 Oximetry 06/06/21 06/06/21 06/06/21 22:41 22:51 23:00 Temperature Pulse Rate Pulse Rate [ Anterior Bilateral Throughout] Pulse Rate [ Posterior Bilateral Bases ] Respiratory Rate Respiratory Rate [Anterior Bilateral Throughout] Respiratory Rate [Posterior Bilateral Bases] Blood Pressure 169/112 169/112 Blood Pressure [Right] O2 Sat by Pulse 95 99 94 Oximetry 06/06/21 06/06/21 06/06/21 23:01 23:11 23:21 Temperature Pulse Rate Pulse Rate [ Anterior Bilateral Throughout] Pulse Rate [ Posterior Bilateral Bases ] Respiratory Rate Respiratory Rate [Anterior Bilateral Throughout] Respiratory Rate [Posterior Bilateral Bases] Blood Pressure 169/112 130/79 130/79 Blood Pressure [Right] O2 Sat by Pulse 99 99 98 Oximetry 06/06/21 06/06/21 06/06/21 23:30 23:41 23:51 Temperature Pulse Rate Pulse Rate [ Anterior Bilateral Throughout] Pulse Rate [ Posterior Bilateral Bases ] Respiratory Rate Respiratory Rate [Anterior Bilateral Throughout] Respiratory Rate [Posterior Bilateral Bases] Blood Pressure 130/79 130/79 130/79 Blood Pressure [Right] O2 Sat by Pulse 97 98 97 Oximetry 06/07/21 06/07/21 06/07/21 00:01 00:11 00:21 Temperature Pulse Rate Pulse Rate [ Anterior Bilateral Throughout] Pulse Rate [ Posterior Bilateral Bases ] Respiratory Rate Respiratory Rate [Anterior Bilateral Throughout] Respiratory Rate [Posterior Bilateral Bases] Blood Pressure 130/79 130/79 130/79 Blood Pressure [Right] O2 Sat by Pulse 98 98 98 Oximetry 06/07/21 06/07/21 06/07/21 00:31 00:41 00:51 Temperature Pulse Rate Pulse Rate [ Anterior Bilateral Throughout] Pulse Rate [ Posterior Bilateral Bases ] Respiratory Rate Respiratory Rate [Anterior Bilateral Throughout] Respiratory Rate [Posterior Bilateral Bases] Blood Pressure 130/79 130/79 130/79 Blood Pressure [Right] O2 Sat by Pulse 97 99 98 Oximetry 06/07/21 06/07/21 06/07/21 01:01 01:11 01:21 Temperature Pulse Rate Pulse Rate [ Anterior Bilateral Throughout] Pulse Rate [ Posterior Bilateral Bases ] Respiratory Rate Respiratory Rate [Anterior Bilateral Throughout] Respiratory Rate [Posterior Bilateral Bases] Blood Pressure 130/79 130/79 130/79 Blood Pressure [Right] O2 Sat by Pulse 100 98 100 Oximetry 06/07/21 06/07/21 06/07/21 01:31 01:41 01:51 Temperature Pulse Rate Pulse Rate [ Anterior Bilateral Throughout] Pulse Rate [ Posterior Bilateral Bases ] Respiratory Rate Respiratory Rate [Anterior Bilateral Throughout] Respiratory Rate [Posterior Bilateral Bases] Blood Pressure 130/79 130/79 130/79 Blood Pressure [Right] O2 Sat by Pulse 99 97 99 Oximetry 06/07/21 06/07/21 06/07/21 02:01 02:11 02:21 Temperature Pulse Rate Pulse Rate [ Anterior Bilateral Throughout] Pulse Rate [ Posterior Bilateral Bases ] Respiratory Rate Respiratory Rate [Anterior Bilateral Throughout] Respiratory Rate [Posterior Bilateral Bases] Blood Pressure 130/79 130/79 130/79 Blood Pressure [Right] O2 Sat by Pulse 99 99 97 Oximetry 06/07/21 06/07/21 06/07/21 02:31 02:41 02:51 Temperature Pulse Rate Pulse Rate [ Anterior Bilateral Throughout] Pulse Rate [ Posterior Bilateral Bases ] Respiratory Rate Respiratory Rate [Anterior Bilateral Throughout] Respiratory Rate [Posterior Bilateral Bases] Blood Pressure 130/79 130/79 130/79 Blood Pressure [Right] O2 Sat by Pulse 89 96 89 Oximetry 06/07/21 06/07/21 06/07/21 03:01 03:11 03:21 Temperature Pulse Rate Pulse Rate [ Anterior Bilateral Throughout] Pulse Rate [ Posterior Bilateral Bases ] Respiratory Rate Respiratory Rate [Anterior Bilateral Throughout] Respiratory Rate [Posterior Bilateral Bases] Blood Pressure 130/79 130/79 130/79 Blood Pressure [Right] O2 Sat by Pulse 96 92 96 Oximetry 06/07/21 06/07/21 06/07/21 03:31 03:41 03:51 Temperature Pulse Rate Pulse Rate [ Anterior Bilateral Throughout] Pulse Rate [ Posterior Bilateral Bases ] Respiratory Rate Respiratory Rate [Anterior Bilateral Throughout] Respiratory Rate [Posterior Bilateral Bases] Blood Pressure 130/79 130/79 130/79 Blood Pressure [Right] O2 Sat by Pulse 96 94 92 Oximetry 06/07/21 06/07/21 06/07/21 04:01 04:11 04:21 Temperature Pulse Rate Pulse Rate [ Anterior Bilateral Throughout] Pulse Rate [ Posterior Bilateral Bases ] Respiratory Rate Respiratory Rate [Anterior Bilateral Throughout] Respiratory Rate [Posterior Bilateral Bases] Blood Pressure 130/79 130/79 130/79 Blood Pressure [Right] O2 Sat by Pulse 98 99 91 Oximetry 06/07/21 06/07/21 06/07/21 04:31 04:41 04:51 Temperature Pulse Rate Pulse Rate [ Anterior Bilateral Throughout] Pulse Rate [ Posterior Bilateral Bases ] Respiratory Rate Respiratory Rate [Anterior Bilateral Throughout] Respiratory Rate [Posterior Bilateral Bases] Blood Pressure 130/79 130/79 130/79 Blood Pressure [Right] O2 Sat by Pulse 93 97 93 Oximetry 06/07/21 06/07/21 06/07/21 05:01 05:11 05:21 Temperature Pulse Rate Pulse Rate [ Anterior Bilateral Throughout] Pulse Rate [ Posterior Bilateral Bases ] Respiratory Rate Respiratory Rate [Anterior Bilateral Throughout] Respiratory Rate [Posterior Bilateral Bases] Blood Pressure 130/79 130/79 130/79 Blood Pressure [Right] O2 Sat by Pulse 94 91 89 Oximetry 06/07/21 06/07/21 06/07/21 05:31 05:41 05:51 Temperature Pulse Rate Pulse Rate [ Anterior Bilateral Throughout] Pulse Rate [ Posterior Bilateral Bases ] Respiratory Rate Respiratory Rate [Anterior Bilateral Throughout] Respiratory Rate [Posterior Bilateral Bases] Blood Pressure 130/79 130/79 130/79 Blood Pressure [Right] O2 Sat by Pulse 98 97 93 Oximetry 06/07/21 06/07/21 06/07/21 06:00 06:01 06:11 Temperature 98.2 F Pulse Rate 86 Pulse Rate [ Anterior Bilateral Throughout] Pulse Rate [ Posterior Bilateral Bases ] Respiratory 18 Rate Respiratory Rate [Anterior Bilateral Throughout] Respiratory Rate [Posterior Bilateral Bases] Blood Pressure 130/79 130/79 Blood Pressure 163/84 [Right] O2 Sat by Pulse 99 97 Oximetry 06/07/21 06:21 Temperature Pulse Rate Pulse Rate [ Anterior Bilateral Throughout] Pulse Rate [ Posterior Bilateral Bases ] Respiratory Rate Respiratory Rate [Anterior Bilateral Throughout] Respiratory Rate [Posterior Bilateral Bases] Blood Pressure 130/79 Blood Pressure [Right] O2 Sat by Pulse 94 Oximetry CBC and BMP: 06/06/21 07:12 06/07/21 06:05 ABG, PT/INR, D-dimer: PT/INR, D-dimer D-Dimer 262.74 ng/mlDDU (0-234) H 06/06/21 11:08 Abnormal lab findings: Abnormal Labs 06/04/21 06/04/21 06/04/21 22:40 22:40 22:40 MCH 26 L RDW 17.2 H Seg Neutrophils % 71.4 H Seg Neuts % (Manual) Lymphocytes % (Manual) Lymphocytes # (Manual) D-Dimer 440.91 H Sodium Chloride BUN 6 L Creatinine 0.5 L Glucose Calcium 8.1 L AST 91 H Lactate Dehydrogenase 963 H C-Reactive Protein 2.60 H Total Protein Albumin 3.1 L Coronavirus (PCR) 06/05/21 06/05/21 06/06/21 09:17 19:57 07:12 MCH 27 L RDW 16.8 H Seg Neutrophils % Seg Neuts % (Manual) 88.0 H Lymphocytes % (Manual) 7.0 L Lymphocytes # (Manual) 0.6 L D-Dimer Sodium 136 L Chloride 97.5 L BUN Creatinine Glucose 200 H Calcium AST Lactate Dehydrogenase C-Reactive Protein Total Protein Albumin 3.5 L Coronavirus (PCR) Positive A 06/06/21 06/06/21 06/06/21 07:12 11:08 11:08 MCH RDW Seg Neutrophils % Seg Neuts % (Manual) Lymphocytes % (Manual) Lymphocytes # (Manual) D-Dimer 262.74 H Sodium Chloride BUN Creatinine 0.5 L Glucose 159 H Calcium AST Lactate Dehydrogenase 332 H C-Reactive Protein Total Protein Albumin 3.5 L Coronavirus (PCR) 06/07/21 06:05 MCH RDW Seg Neutrophils % Seg Neuts % (Manual) Lymphocytes % (Manual) Lymphocytes # (Manual) D-Dimer Sodium Chloride BUN Creatinine Glucose 119 H Calcium AST Lactate Dehydrogenase C-Reactive Protein Total Protein 6.0 L Albumin 3.4 L Coronavirus (PCR)
[2021-06-07] MEDS: guaiFENesin 100 MG/5 ML ORAL LIQD PO PRN ×2 (09:54→17:39)
[2021-06-07] MEDS: FAMOTIDINE 20 MG TAB PO SCH ×2 (09:55→23:18)
[2021-06-07] MEDS: dexAMETHasone 4 MG/ML VIAL IV SCH (09:55)
[2021-06-07] MEDS ORDERED: ALBUTEROL 2.5 MG/3 ML NEBU IH PRN (12:19)
--- NOTE | 2021-06-07 14:43 | Progress Note ---
Assessment and Plan Cultures: Blood culture no growth so far COVID-19 PCR: Positive A/P: 46-year-old female past medical history morbid obesity, asthma presented to hospital with: #Severe COVID-19 pneumonia: Patient presented with a week of symptoms, chest x- ray with diffuse bilateral infiltrates, admission O2 sats on room air. Inflammatory markers elevated #Acute hypoxemic respiratory failure: Likely secondary to COVID-19 infection. Currently on 4 L cannula #Morbid obesity Recommendations: -Steroids for 10 days -Remdesivir 200 mg IV q day x 1 followed by 100 mg IV q day x 4 days -Obtain q48-72h inflammatory markers - ferritin, Ddimer, CRP, LDH -Continue ceftriaxone 2 gm IV qday and azithromycin 500 mg PO qday, if procalcitonin <0.25 ng/mL stop antibiotics -Anticoagulation per hospital protocol -Proning as able Thank you for the consult, we will sign off. Please call for questions. Denny Kc MD [facility], [place], [facility] ([facility] O: [phone] F: [phone] Subjective Date of service: 06/07/21 Interval history: Afebrile, Covid positive. On 4 L nasal cannula. Objective - Exam Narrative Exam: Physical exam deferred to reduce risk of transmission of COVID-19. Please refer to primary team's note. - Constitutional Vitals: Vital Signs Temp Pulse Resp BP Pulse Ox 97.6 F 104 H 20 128/68 97 06/07/21 11:00 06/07/21 12:11 06/07/21 12:11 06/07/21 11:00 06/07/21 14:25 Temperature -Last 24 Hours Temperature 97.6 F Temperature 98.2 F Temperature 97.7 F - Labs CBC & Chem 7: 06/06/21 07:12 06/07/21 06:05 Labs: Abnormal lab results 06/07/21 Range/Units 06:05 Glucose 119 H (65-100) mg/dL Total Protein 6.0 L (6.3-8.2) g/dL Albumin 3.4 L (3.9-5) g/dL
[2021-06-07] MEDS: ACETAMINOPHEN 325 MG TAB PO PRN (17:39)
[2021-06-07] MEDS: ARFORMOTEROL 15 MCG/2 ML NEBU IH SCH (21:14)
[2021-06-07] MEDS: BUDESONIDE 0.5 MG/2 ML NEBU IH SCH (21:14)
[2021-06-07] MEDS: REMDESIVIR 100 MG in SODIUM CHLORIDE 0.9% 250ML 250 ML IV SCH (23:17)
[2021-06-07] MEDS: SODIUM CHLORIDE 0.9% 50 ML IVPB IV SCH (23:18)
[2021-06-08 06:41] LABS: Alanine Aminotransferase 23 units/L (7-56); Albumin 3.3 g/dL (3.9-5); Blood Urea Nitrogen 15 mg/dL (7-17); Calcium 8.8 mg/dL (8.4-10.2); Hemolysis Index 4
[2021-06-08 06:43] LABS: C-Reactive Protein 0.4 mg/dL (0.00-1.30)
[2021-06-08] MEDS: HEPARIN 5,000 UNIT/1 ML VIAL SUB-Q SCH ×3 (07:00→22:14)
[2021-06-08 07:08] LABS: BUN/Creatinine Ratio 38
[2021-06-08] MEDS: ARFORMOTEROL 15 MCG/2 ML NEBU IH SCH ×2 (09:23→21:41)
[2021-06-08] MEDS: BUDESONIDE 0.5 MG/2 ML NEBU IH SCH ×2 (09:23→21:40)
[2021-06-08] MEDS: IPRATROPIUM/ALBUTEROL SULFATE 3 ML AMPUL.NEB IH SCH ×4 (09:23→21:40)
[2021-06-08] MEDS: dexAMETHasone 4 MG/ML VIAL IV SCH (10:28)
[2021-06-08] MEDS: FAMOTIDINE 20 MG TAB PO SCH ×2 (10:28→22:14)
[2021-06-08] MEDS ORDERED: FUROSEMIDE 20 MG/2 ML INJ IV ONE (15:16)
--- NOTE | 2021-06-08 15:17 | Progress Note ---
Assessment and Plan 46 y/o female with acute respiratory failure secondary to COVID 19, morbidly obese and asthma exacerbation. 06/08/21: Will give lasix today IV x1. Prone if possible and as long as tolerated. Steroids and REmdesivir. 06/07/21: No new recs for today, please see below. 1. Steroids for at least 10 days, may need higher dosing given body habitus. Suggest at least BID 2. Stopped nebulizers given COVID infection, please ask patient if family can bring in her Symbicort as we do not have long acting puffers on Formulary 3. Daily net negative fluid balance 4. Prone as tolerated during the day and sleep prone at night Guarded prognosis. Subjective Date of service: 06/08/21 Interval history: Oxygen increased to 5 from 4. Per I/O positive not accurate output. Elevated BP. Objective Vital Signs - 12hr 06/08/21 04:47 Temperature 97.9 F Pulse Rate 84 Respiratory 22 Rate Blood Pressure 153/89 O2 Sat by Pulse 91 Oximetry CBC and BMP: 06/06/21 07:12 06/08/21 05:00 ABG, PT/INR, D-dimer: PT/INR, D-dimer D-Dimer 251.13 ng/mlDDU (0-234) H 06/08/21 04:00 Abnormal lab findings: Abnormal Labs 06/04/21 06/04/21 06/04/21 22:40 22:40 22:40 MCH 26 L RDW 17.2 H Seg Neutrophils % 71.4 H Seg Neuts % (Manual) Lymphocytes % (Manual) Lymphocytes # (Manual) D-Dimer 440.91 H Sodium Chloride BUN 6 L Creatinine 0.5 L Glucose Calcium 8.1 L AST 91 H Lactate Dehydrogenase 963 H C-Reactive Protein 2.60 H Total Protein Albumin 3.1 L Coronavirus (PCR) 06/05/21 06/05/21 06/06/21 09:17 19:57 07:12 MCH 27 L RDW 16.8 H Seg Neutrophils % Seg Neuts % (Manual) 88.0 H Lymphocytes % (Manual) 7.0 L Lymphocytes # (Manual) 0.6 L D-Dimer Sodium 136 L Chloride 97.5 L BUN Creatinine Glucose 200 H Calcium AST Lactate Dehydrogenase C-Reactive Protein Total Protein Albumin 3.5 L Coronavirus (PCR) Positive A 06/06/21 06/06/21 06/06/21 07:12 11:08 11:08 MCH RDW Seg Neutrophils % Seg Neuts % (Manual) Lymphocytes % (Manual) Lymphocytes # (Manual) D-Dimer 262.74 H Sodium Chloride BUN Creatinine 0.5 L Glucose 159 H Calcium AST Lactate Dehydrogenase 332 H C-Reactive Protein Total Protein Albumin 3.5 L Coronavirus (PCR) 06/07/21 06/08/21 06/08/21 06:05 04:00 04:00 MCH RDW Seg Neutrophils % Seg Neuts % (Manual) Lymphocytes % (Manual) Lymphocytes # (Manual) D-Dimer 251.13 H Sodium Chloride BUN Creatinine Glucose 119 H Calcium AST Lactate Dehydrogenase 257 H C-Reactive Protein Total Protein 6.0 L Albumin 3.4 L Coronavirus (PCR) 06/08/21 05:00 MCH RDW Seg Neutrophils % Seg Neuts % (Manual) Lymphocytes % (Manual) Lymphocytes # (Manual) D-Dimer Sodium Chloride BUN Creatinine 0.4 L Glucose 133 H Calcium AST Lactate Dehydrogenase C-Reactive Protein Total Protein 5.9 L Albumin 3.3 L Coronavirus (PCR)
--- NOTE | 2021-06-08 17:37 | Progress Note ---
Assessment and Plan -- COVID-19 virus infection/positive nash PCR 06/05/2021 Current Visit: Yes Status: Acute Contact and droplet isolation Patient is requiring 3 to 5 L of nasal cannula oxygen Inflammatory markers, ID consulted Dexamethasone 6 mg IV daily.Remdesivir per protocol Prone positioning, home O2 evaluation prior to discharge Follow ID and pulmonary recommendations --Acute hypoxic respiratory failure on3- 5 L nasal cannula oxygen Current Visit: No Status: Acute Oxygen via nasal cannula conference assistant pulmonate DuoNeb by nebulizer every 4 hours. Dexamethasone 6 mg IV daily. Remdesivir Started remdesivir , patient refused --Acute exacerbation of bronchial asthma Current Visit: Yes Status: Acute Oxygen via nasal cannula titrate O2 sats to more than 90% DuoNeb IV steroids Dexamethasone 6 mg IV daily. IV antibiotics --Multifocal pneumonia/CAP versus Covid pneumonia Current Visit: Yes Status: Acute Continue empiric antibiotics IV Levaquin, Follow cultures Procalcitonin level pending, if normal levels may DC empiric antibiotics --Morbid obesity with BMI of 40.0-44.9, adult Current Visit: No Status: Acute We will counseled the patient regarding weight reduction. Diet modification exercise as tolerated and weight reduction When medically stable --Possible obstructive sleep apnea; Current Visit: No Status: Chronic Patient needs outpatient sleep study to rule out ZAID CPAP BiPAP at night if needed --Moderate malnutrition; hypoalbuminemia, nutrition supplements and supportive care --DVT prophylaxis Current Visit: No Status: Acute Heparin 5000 units subcu every 8 hours for DVT prophylaxis. Pepcid 20 mg p.o.twice daily for GI prophylaxis. Patient is a full code --full CODE STATUS Will closely monitor patient and adjust management as needed Plan of care reviewed with the patient and her nurse Follow consultants evaluation recommendations Continue contact and droplet isolation Plan of care reviewed with patient and her nurse Brief history and hospital course; 46-year-old unvaccinated female patient was admitted through the emergency room with worsening shortness of breath, acute respiratory failure and upper respiratory symptoms, Patient required supplemental oxygen, work-up is consistent with COVID-19 infection and multifocal pneumonia, ID following the patient Patient is receiving steroids, remdesivir, oxygen. Morbidly obese, may need outpatient sleep study to rule out ZAID 06/07/2021; patient feels slightly better, requiring 4 L nasal cannula oxygen On steroids and remdesivir ID following, 06/08/20; patient remains on 4 L supplemental O2, doing well. Continue empiric steroid for total 10 days and remdesivir for total 5 days. Last dose of remdesivir tomorrow, will also assess for home O2 requirement. If patient clinically stable and requires less than 5 L supplemental O2 possible discharge tomorrow after last dose of remdesivir. Subjective Date of service: 06/08/21 Interval history: Patient seen and examined. Medical records and medication list reviewed. No acute event overnight noted by the RN. Patient remains on supplemental O2. Patient is tolerating diet. Discussed plan of care at bedside with patient. Objective - Exam Narrative Exam: Limited physical exam due to COVID-19 pandemic to minimize transmission of the disease and to preserve PPE. Vital reviewed and stable. GENERAL: well-developed morbidly obese white female lying on bed appeared to be in no discomfort. HEENT: Normocephalic. Atraumatic. NECK: Supple. CHEST/LUNGS: breathing nonlabored with supplemental O2. HEART/CARDIOVASCULAR: Heart rate stable on telemetry ABDOMEN: Visibly not distended SKIN: There is no rash NEURO: No focal motor deficit. Follows command. MUSCULOSKELETAL: No joint effusion EXTRIMITY: No swelling, no cyanosis or clubbing. PSYCH: Cooperative. - Constitutional Vitals: Vital Signs - 12hr 06/08/21 06/08/21 12:14 14:00 Temperature 97.8 F Pulse Rate 85 Respiratory 24 Rate Blood Pressure 164/90 O2 Sat by Pulse 90 97 Oximetry - Labs CBC & Chem 7: 06/06/21 07:12 06/08/21 05:00 Labs: Abnormal lab results 06/08/21 06/08/21 06/08/21 Range/Units 04:00 04:00 05:00 D-Dimer 251.13 H (0-234) ng/mlDDU Creatinine 0.4 L (0.6-1.2) mg/dL Glucose 133 H (65-100) mg/dL Lactate Dehydrogenase 257 H (91-180) units/L Total Protein 5.9 L (6.3-8.2) g/dL Albumin 3.3 L (3.9-5) g/dL
[2021-06-08] MEDS: SODIUM CHLORIDE 0.9% 50 ML IVPB IV SCH (22:14)
[2021-06-08] MEDS: REMDESIVIR 100 MG in SODIUM CHLORIDE 0.9% 250ML 250 ML IV SCH (22:14)
[2021-06-09] MEDS: HEPARIN 5,000 UNIT/1 ML VIAL SUB-Q SCH ×3 (05:13→22:19)
[2021-06-09] MEDS: ARFORMOTEROL 15 MCG/2 ML NEBU IH SCH ×2 (09:11→20:12)
[2021-06-09] MEDS: BUDESONIDE 0.5 MG/2 ML NEBU IH SCH ×2 (09:11→20:12)
[2021-06-09] MEDS: IPRATROPIUM/ALBUTEROL SULFATE 3 ML AMPUL.NEB IH SCH ×3 (09:11→20:12)
[2021-06-09] MEDS: FAMOTIDINE 20 MG TAB PO SCH ×2 (10:45→22:19)
[2021-06-09] MEDS: DEXAMETHASONE 4 MG TAB PO SCH (10:45)
--- NOTE | 2021-06-09 12:01 | Progress Note ---
Assessment and Plan 46 y/o female with acute respiratory failure secondary to COVID 19, morbidly obese and asthma exacerbation. 06/09/21: Got lasix yesterday, not sure what response was as I/O not accurate. If patient feels better would suggest another round. BP tolerated it but no labs checked this am. Per IMS note possible discharge today after remdesivir dosing. Needs ambulatory test to assess oxygen needs. steroids for 10 days. 06/08/21: Will give lasix today IV x1. Prone if possible and as long as tolerated. Steroids and REmdesivir. 06/07/21: No new recs for today, please see below. 1. Steroids for at least 10 days, may need higher dosing given body habitus. Suggest at least BID 2. Stopped nebulizers given COVID infection, please ask patient if family can bring in her Symbicort as we do not have long acting puffers on Formulary 3. Daily net negative fluid balance 4. Prone as tolerated during the day and sleep prone at night Guarded prognosis. Subjective Date of service: 06/09/21 Interval history: no acute events. Stable on 4 liters. Objective Vital Signs - 12hr 06/09/21 06/09/21 06/09/21 03:07 05:13 10:37 Temperature 98.0 F 98.6 F Pulse Rate 72 91 H Respiratory 16 18 Rate Blood Pressure 143/77 141/73 O2 Sat by Pulse 96 91 93 Oximetry CBC and BMP: 06/06/21 07:12 06/08/21 05:00 ABG, PT/INR, D-dimer: PT/INR, D-dimer D-Dimer 251.13 ng/mlDDU (0-234) H 06/08/21 04:00 Abnormal lab findings: Abnormal Labs 06/04/21 06/04/21 06/04/21 22:40 22:40 22:40 MCH 26 L RDW 17.2 H Seg Neutrophils % 71.4 H Seg Neuts % (Manual) Lymphocytes % (Manual) Lymphocytes # (Manual) D-Dimer 440.91 H Sodium Chloride BUN 6 L Creatinine 0.5 L Glucose Calcium 8.1 L AST 91 H Lactate Dehydrogenase 963 H C-Reactive Protein 2.60 H Total Protein Albumin 3.1 L Coronavirus (PCR) 06/05/21 06/05/21 06/06/21 09:17 19:57 07:12 MCH 27 L RDW 16.8 H Seg Neutrophils % Seg Neuts % (Manual) 88.0 H Lymphocytes % (Manual) 7.0 L Lymphocytes # (Manual) 0.6 L D-Dimer Sodium 136 L Chloride 97.5 L BUN Creatinine Glucose 200 H Calcium AST Lactate Dehydrogenase C-Reactive Protein Total Protein Albumin 3.5 L Coronavirus (PCR) Positive A 06/06/21 06/06/21 06/06/21 07:12 11:08 11:08 MCH RDW Seg Neutrophils % Seg Neuts % (Manual) Lymphocytes % (Manual) Lymphocytes # (Manual) D-Dimer 262.74 H Sodium Chloride BUN Creatinine 0.5 L Glucose 159 H Calcium AST Lactate Dehydrogenase 332 H C-Reactive Protein Total Protein Albumin 3.5 L Coronavirus (PCR) 06/07/21 06/08/21 06/08/21 06:05 04:00 04:00 MCH RDW Seg Neutrophils % Seg Neuts % (Manual) Lymphocytes % (Manual) Lymphocytes # (Manual) D-Dimer 251.13 H Sodium Chloride BUN Creatinine Glucose 119 H Calcium AST Lactate Dehydrogenase 257 H C-Reactive Protein Total Protein 6.0 L Albumin 3.4 L Coronavirus (PCR) 06/08/21 05:00 MCH RDW Seg Neutrophils % Seg Neuts % (Manual) Lymphocytes % (Manual) Lymphocytes # (Manual) D-Dimer Sodium Chloride BUN Creatinine 0.4 L Glucose 133 H Calcium AST Lactate Dehydrogenase C-Reactive Protein Total Protein 5.9 L Albumin 3.3 L Coronavirus (PCR)
--- NOTE | 2021-06-09 14:59 | Discharge Summary ---
Providers - Providers Date of Admission: 06/05/21 01:41 Date of discharge: 06/10/21 Attending physician: MIHIR CHOWDARY 06/05/21 01:41 Consult to Physician [CONS] Routine Comment: Consulting Provider: ROHIT BRODERICK Physician Instructions: Reason For Exam: covid Consult to Physician [CONS] Routine Comment: Consulting Provider: MARYANNE PIERCE Physician Instructions: Reason For Exam: covid Primary care physician: PHLEBOTOMIST Hospitalization Condition: Stable Hospital course: 46-year-old unvaccinated morbidly obese white female patient was admitted through the emergency room with worsening shortness of breath, acute respiratory failure and upper respiratory symptoms. Chest x-ray in the ER showed bilateral pulmonary opacities, CTA chest showed no PE but multiple bilateral groundglass pulmonary opacities. -Patient was tested positive for COVID. -Placed on dexamethasone for total 10 days and remdesivir total 5 days - Placed on Droplet/contact isolation, continuous SPO2 monitoring, supplemental oxygen as needed, pulmonary hygiene, prone to sleep, Vitamin C, vitamin D, zinc -Patient was given anticoagulation per protocol, Lasix IV as needed to prevent pulmonary edema -Infectious disease and pulmonary were consulted. -Patient's symptoms improved with current Mx and was assessed for home O2 requirement. - Patient was then discharged home in stable condition with outpt followup. Disposition: 30 STILL A PATIENT Final Discharge Diagnosis (Prints w/discharge instructions): -- COVID-19 virus infection/positive nash PCR 06/05/2021. --Multifocal Covid pneumonia. --Acute hypoxic respiratory failure on 3- 5 L nasal cannula oxygen. --Acute exacerbatio n of bronchial asthma. --Morbid obesity with BMI of 40.0-44.9, adult. --Possible obstructive sleep apnea Time spent for discharge: 34 minutes Core Measure Documentation - Palliative Care Palliative Care/ Comfort Measures: Not Applicable - Core Measures Any of the following diagnoses?: none Exam - Physical Exam Narrative exam: Limited physical exam due to COVID-19 pandemic to minimize transmission of the disease and to preserve PPE. Vital reviewed and stable. GENERAL: well-developed morbidly obese white female lying on bed appeared to be in no discomfort. HEENT: Normocephalic. Atraumatic. NECK: Supple. CHEST/LUNGS: breathing nonlabored with supplemental O2. HEART/CARDIOVASCULAR: Heart rate stable on telemetry ABDOMEN: Visibly not distended SKIN: There is no rash NEURO: No focal motor deficit. Follows command. MUSCULOSKELETAL: No joint effusion EXTRIMITY: No swelling, no cyanosis or clubbing. PSYCH: Cooperative. - Constitutional Vitals: Temp Pulse Resp BP Pulse Ox 98.6 F 91 H 18 141/73 93 06/09/21 10:37 06/09/21 10:37 06/09/21 10:37 06/09/21 10:37 06/09/21 10:37 Plan Activity: advance as tolerated Weight Bearing Status: Weight Bear as Tolerated Diet: low fat, low salt Special Instructions: home oxygen via (4L n/c) Additional Instructions: Upon discharge patient should self-quarantine at home up to 2 weeks from the onset of symptoms. Patient should return to hospital regardless if experiencing worsening fevers or respiratory status. Follow-up outpatient for possible sleep study. Follow up with: PRIMARY CAREMD [Primary Care Provider] - 7 Days HECTOR HINES MD [Staff Physician] - 7 Days Prescriptions: dexAMETHasone [Decadron] 6 mg PO DAILY #7 tablet Ascorbic Acid [Vitamin C] 1,000 mg PO BID #10 tablet Cholecalciferol (Vitamin D3) [Vitamin D3] 5,000 unit PO DAILY #7 tablet Zinc Sulfate 220 mg PO BID #10 capsule
[2021-06-09] MEDS: ZINC SULFATE 220 MG CAP PO SCH ×2 (15:20→22:19)
[2021-06-09] MEDS: ASCORBIC ACID 500 MG TAB PO SCH ×2 (15:20→22:19)
[2021-06-09] MEDS: CHOLECALCIFEROL (VIT D3) 5,000 UNIT TAB PO SCH (15:20)
[2021-06-09] MEDS: SODIUM CHLORIDE 0.9% 50 ML IVPB IV SCH (22:18)
[2021-06-09] MEDS: REMDESIVIR 100 MG in SODIUM CHLORIDE 0.9% 250ML 250 ML IV SCH (22:18)
[2021-06-10] MEDS: HEPARIN 5,000 UNIT/1 ML VIAL SUB-Q SCH ×2 (05:14→13:11)
[2021-06-10] MEDS: guaiFENesin 100 MG/5 ML ORAL LIQD PO PRN (10:39)
[2021-06-10] MEDS: FAMOTIDINE 20 MG TAB PO SCH (10:39)
[2021-06-10] MEDS: IPRATROPIUM/ALBUTEROL SULFATE 3 ML AMPUL.NEB IH SCH ×2 (10:40→14:26)
[2021-06-10] MEDS: BUDESONIDE 0.5 MG/2 ML NEBU IH SCH (10:40)
[2021-06-10] MEDS: ZINC SULFATE 220 MG CAP PO SCH (10:40)
[2021-06-10] MEDS: ARFORMOTEROL 15 MCG/2 ML NEBU IH SCH (10:40)
[2021-06-10] MEDS: DEXAMETHASONE 4 MG TAB PO SCH (10:40)
[2021-06-10] MEDS: ASCORBIC ACID 500 MG TAB PO SCH (10:40)
[2021-06-10] MEDS: CHOLECALCIFEROL (VIT D3) 5,000 UNIT TAB PO SCH (10:40)
[2021-06-10 10:43] VITALS: BP 132/81
--- NOTE | 2021-06-10 10:53 | Progress Note ---
Assessment and Plan -- COVID-19 virus infection/positive nash PCR 06/05/2021 Current Visit: Yes Status: Acute Contact and droplet isolation Patient is requiring 3 to 5 L of nasal cannula oxygen Inflammatory markers, ID consulted Dexamethasone 6 mg IV daily.Remdesivir per protocol Prone positioning, home O2 evaluation prior to discharge Follow ID and pulmonary recommendations --Acute hypoxic respiratory failure on 3- 5 L nasal cannula oxygen Current Visit: No Status: Acute Oxygen via nasal cannula tyre finisher and examiner pulmonate DuoNeb by nebulizer every 4 hours. Dexamethasone 6 mg IV daily. Remdesivir Started remdesivir , patient refused --Acute exacerbation of bronchial asthma Current Visit: Yes Status: Acute Oxygen via nasal cannula titrate O2 sats to more than 90% DuoNeb IV steroids Dexamethasone 6 mg IV daily. IV antibiotics --Multifocal pneumonia/CAP versus Covid pneumonia Current Visit: Yes Status: Acute Continue empiric antibiotics IV Levaquin, Follow cultures Procalcitonin level pending, if normal levels may DC empiric antibiotics --Morbid obesity with BMI of 40.0-44.9, adult Current Visit: No Status: Acute We will counseled the patient regarding weight reduction. Diet modification exercise as tolerated and weight reduction When medically stable --Possible obstructive sleep apnea; Current Visit: No Status: Chronic Patient needs outpatient sleep study to rule out ZAID CPAP BiPAP at night if needed --Moderate malnutrition; hypoalbuminemia, nutrition supplements and supportive care --DVT prophylaxis Current Visit: No Status: Acute Heparin 5000 units subcu every 8 hours for DVT prophylaxis. Pepcid 20 mg p.o.twice daily for GI prophylaxis. Patient is a full code --full CODE STATUS Will closely monitor patient and adjust management as needed Plan of care reviewed with the patient and her nurse Follow consultants evaluation recommendations Continue contact and droplet isolation Plan of care reviewed with patient and her nurse Brief history and hospital course; 46-year-old unvaccinated female patient was admitted through the emergency room with worsening shortness of breath, acute respiratory failure and upper respiratory symptoms, Patient required supplemental oxygen, work-up is consistent with COVID-19 infection and multifocal pneumonia, ID following the patient Patient is receiving steroids, remdesivir, oxygen. Morbidly obese, may need outpatient sleep study to rule out ZAID 06/07/2021; patient feels slightly better, requiring 4 L nasal cannula oxygen On steroids and remdesivir ID following, 06/08/20; patient remains on 4 L supplemental O2, doing well. Continue empiric steroid for total 10 days and remdesivir for total 5 days. Last dose of remdesivir tomorrow, will also assess for home O2 requirement. If patient clinically stable and requires less than 5 L supplemental O2 possible discharge tomorrow after last dose of remdesivir. 06/09/20; last dose of remdesivir today. Patient noted to be on 5 L nasal cannula O2 even though it is documented in the chart under respiratory note as 4 L. Will assess for home O2 requirement. If oxygen saturation could be maintained under 5 L patient will be discharged home with home O2. Continue empiric steroid and follow inflammatory markers. Subjective Date of service: 06/09/21 Interval history: Patient seen and examined. Medical records and medication list reviewed. No acute event overnight noted by the RN. Patient remains on supplemental O2. Patient is tolerating diet. Discussed plan of care at bedside with patient. Objective - Exam Narrative Exam: Limited physical exam due to COVID-19 pandemic to minimize transmission of the disease and to preserve PPE. Vital reviewed and stable. GENERAL: well-developed morbidly obese white female lying on bed appeared to be in no discomfort. HEENT: Normocephalic. Atraumatic. NECK: Supple. CHEST/LUNGS: breathing nonlabored with supplemental O2. HEART/CARDIOVASCULAR: Heart rate stable on telemetry ABDOMEN: Visibly not distended SKIN: There is no rash NEURO: No focal motor deficit. Follows command. MUSCULOSKELETAL: No joint effusion EXTRIMITY: No swelling, no cyanosis or clubbing. PSYCH: Cooperative. - Constitutional Vitals: Vital Signs - 12hr 06/10/21 06/10/21 06/10/21 01:47 04:32 08:00 Temperature 97.8 F Pulse Rate 85 Pulse Rate [ 86 Anterior Bilateral Throughout] Pulse Rate [ 88 Posterior Bilateral Bases ] Respiratory 20 Rate Respiratory 18 Rate [Anterior Bilateral Throughout] Respiratory 20 Rate [Posterior Bilateral Bases] Blood Pressure 153/78 O2 Sat by Pulse 94 94 Oximetry 06/10/21 06/10/21 10:00 10:40 Temperature 98.0 F Pulse Rate 89 Pulse Rate [ Anterior Bilateral Throughout] Pulse Rate [ Posterior Bilateral Bases ] Respiratory 24 Rate Respiratory Rate [Anterior Bilateral Throughout] Respiratory Rate [Posterior Bilateral Bases] Blood Pressure 132/81 O2 Sat by Pulse 94 92 Oximetry - Labs CBC & Chem 7: 06/06/21 07:12 06/08/21 05:00
== END 2021-06-10 15:53 | disposition home or self-care (01) | DRG 177 ==
LOC: ED 21:55 → 3A 06-05 01:41
PROVIDERS: ADMIT Hospitalist; ATTEND Internal Medicine
PROC: XW033E5 Introduction of Remdesivir Anti-infective into Peripheral Vein, Percutaneous Approach, New Technology Group 5 (ICD-10-PCS; principal; 2021-06-05)
DX: U07.1 COVID-19 (principal); J96.01 Acute respiratory failure with hypoxia; J12.82 Pneumonia due to coronavirus disease 2019; J45.901 Unspecified asthma with (acute) exacerbation; E66.01 Morbid (severe) obesity due to excess calories; Z68.41 Body mass index [BMI] 40.0-44.9, adult
CPT/HCPCS: 36415; 71045; 71275; 80053; 82140; 82728; 83615; 84145; 84703; 85007; 85025; 85379; 86140; 87040; 94640; 94760; G0378; J1100; J1644; J1940; J1956; J7050; J8540; Q9967; U0003